=== PATIENT | male | born 1965 | race African-American/Black ===

== ENCOUNTER 2016-03-27 16:05 | Observation (INO) | payer SELFPAY ==
[~2016-03-27] VITALS: Ht 177.8 cm; Wt 120.0 kg
[~2016-03-27 16:05] MED LIST: CARV6.25 PO; CLIN150 PO; CLON.1 PO; COLL30OI3 TOP; GABA600T PO; HYDR100T2 PO; LACT PO; METF-324 PO; PERC5TAB12 PO
[2016-03-27 16:07] VITALS: BP 218/114; PULSE 78; RESP 20; TEMP 98; O2SAT 95
[2016-03-27] MEDS ORDERED: SODIUM CHLORIDE 0.9% FLUSH 5 ML FLUSH IVF PRN (18:00)
--- NOTE | 2016-03-27 18:04 | PD ---
HPI Chief Complaint: General Weakness Time Seen by Provider: 18:04 Travel History International Travel<30 days: No Contact w/Intl Traveler<30days: No Traveled to known affect area: No History of Present Illness HPI 50-year-old man who is diabetic with history of hypertension, currently not being treated due to not having a current provider, presents to emergency department for evaluation of shortness of breath worsening over the last 3 days with associated lower extremity edema. Patient states he has no history of CHF. He days he is visiting from [facility]. He denies any recent illnesses, fever, or chills. He is concerned that this shortness of breath likely secondary to a GI bleed which he states he was hospitalized here for couple years back. He says he is short of breath than like he is now however he has not had any rayshawn red stools. He states that his stools are intermittently blackened. Denies any abdominal pain. No urinary symptoms. No nausea or vomiting. He has no other symptoms at this time PFSH Past Medical History Blood Disorders: No Cancer: No Diabetes: Yes Endocrine: No Genitourinary: No Headaches: Yes Hypertension: Yes Immune Disorder: No Musculoskeletal: No Neurologic: Yes (NEUROPATHY) Psychiatric: No Reproductive: No Respiratory: No Past Surgical History Pacemaker: No Social History Alcohol Use: No Tobacco Use: No Substance Use: No Allergies-Medications (Allergen,Severity, Reaction): Coded Allergies: No Known Allergies (Verified , 03/27/16) Reported Meds & Prescriptions Reported Meds & Active Scripts Active Reported Hydralazine (Hydralazine HCl) 100 Mg Tab 100 Mg PO TID Take with meals Coreg (Carvedilol) 6.25 Mg Tab 6.25 Mg PO BID Gabapentin 300 Mg Cap 400 Mg PO BID Review of Systems Except as stated in HPI: all other systems reviewed are Neg Physical Exam Narrative GENERAL: Well-nourished male patient, in no acute distress SKIN: Warm and dry. HEAD: Atraumatic. Normocephalic. EYES: Pupils equal and round. No scleral icterus. No injection or drainage. ENT: No nasal bleeding or discharge. Mucous membranes pink and moist. NECK: Trachea midline. No JVD. CARDIOVASCULAR: Regular rate and rhythm. No murmur appreciated. RESPIRATORY: No accessory muscle use. Diminished but no definitive adventitious sounds to auscultation. Breath sounds equal bilaterally. GASTROINTESTINAL: Abdomen soft, non-tender, nondistended. Hepatic and splenic margins not palpable. MUSCULOSKELETAL: No obvious deformities. No clubbing. No cyanosis. 2+ lower extremity edema. Pulses are palpable. Cap refill is within normal limits. NEUROLOGICAL: Awake and alert. No obvious cranial nerve deficits. Motor grossly within normal limits. Normal speech. PSYCHIATRIC: Appropriate mood and affect; insight and judgment normal. Data Data Last Documented VS Vital Signs Date Time Temp Pulse Resp B/P Pulse Ox O2 Delivery O2 Flow Rate FiO2 03/27/16 18:09 99 Nasal Cannula 2 03/27/16 18:09 190/93 03/27/16 16:07 98.0 78 20 Orders Electrocardiogram (03/27/16 17:52) B-Type Natriuretic Peptide (03/27/16 17:52) Ckmb (Isoenzyme) Profile (03/27/16 17:52) Complete Blood Count With Diff (03/27/16 17:52) Comprehensive Metabolic Panel (03/27/16 17:52) Magnesium (Mg) (03/27/16 17:52) Prothrombin Time / Inr (Pt) (03/27/16 17:52) Act Partial Throm Time (Ptt) (03/27/16 17:52) Troponin I (03/27/16 17:52) Chest, Single Ap (03/27/16 17:52) Ecg Monitoring (03/27/16 17:52) Bilateral Bp Monitoring (03/27/16 17:52) Iv Access Insert/Monitor (03/27/16 17:52) Oximetry (03/27/16 17:52) Oxygen Administration (03/27/16 17:52) Sodium Chloride 0.9% Flush (Ns Flush) (03/27/16 18:00) Us Leg Venous Doppler Bilat (03/27/16 ) CKMB (03/27/16 18:15) CKMB% (03/27/16 18:15) Furosemide Inj (Lasix Inj) (03/27/16 19:30) Hydralazine Inj (Apresoline Inj) (03/27/16 20:15) Admit Order (Ed Use Only) (03/27/16 20:17) Labs Laboratory Tests Test 03/27/16 18:15 White Blood Count 4.8 TH/MM3 Red Blood Count 3.77 MIL/MM3 Hemoglobin 9.3 GM/DL Hematocrit 30.8 % Mean Corpuscular Volume 81.6 FL Mean Corpuscular Hemoglobin 24.7 PG Mean Corpuscular Hemoglobin 30.2 % Concent Red Cell Distribution Width 20.0 % Platelet Count 304 TH/MM3 Mean Platelet Volume 9.1 FL Neutrophils (%) (Auto) 67.2 % Lymphocytes (%) (Auto) 17.6 % Monocytes (%) (Auto) 13.5 % Eosinophils (%) (Auto) 0.9 % Basophils (%) (Auto) 0.8 % Neutrophils # (Auto) 3.2 TH/MM3 Lymphocytes # (Auto) 0.8 TH/MM3 Monocytes # (Auto) 0.6 TH/MM3 Eosinophils # (Auto) 0.0 TH/MM3 Basophils # (Auto) 0.0 TH/MM3 CBC Comment AUTO DIFF Differential Comment AUTO DIFF CONFIRMED Tear Drop Cells 1+ Ovalocytes 2+ Keratocytes 1+ Prothrombin Time 10.4 SEC Prothromb Time International 0.9 RATIO Ratio Activated Partial 25.3 SEC Thromboplast Time Sodium Level 144 MEQ/L Potassium Level 3.5 MEQ/L Chloride Level 106 MEQ/L Carbon Dioxide Level 29.2 MEQ/L Anion Gap 9 MEQ/L Blood Urea Nitrogen 15 MG/DL Creatinine 1.78 MG/DL Estimat Glomerular Filtration 49 ML/MIN Rate Random Glucose 171 MG/DL Calcium Level 8.6 MG/DL Magnesium Level 2.1 MG/DL Total Bilirubin 0.8 MG/DL Aspartate Amino Transf 16 U/L (AST/SGOT) Alanine Aminotransferase 21 U/L (ALT/SGPT) Alkaline Phosphatase 90 U/L Total Creatine Kinase 103 U/L Creatine Kinase MB 1.2 NG/ML Troponin I 0.02 NG/ML B-Type Natriuretic Peptide 665 PG/ML Total Protein 7.1 GM/DL Albumin 3.3 GM/DL MDM Medical Decision Making Medical Screen Exam Complete: Yes Emergency Medical Condition: Yes Medical Record Reviewed: Yes Differential Diagnosis CHF vs DVT vs electrolyte abnormality versus PE versus ACS Narrative Course Laboratory Tests Test 03/27/16 18:15 White Blood Count 4.8 TH/MM3 Red Blood Count 3.77 MIL/MM3 Hemoglobin 9.3 GM/DL Hematocrit 30.8 % Mean Corpuscular Volume 81.6 FL Mean Corpuscular Hemoglobin 24.7 PG Mean Corpuscular Hemoglobin 30.2 % Concent Red Cell Distribution Width 20.0 % Platelet Count 304 TH/MM3 Mean Platelet Volume 9.1 FL Neutrophils (%) (Auto) 67.2 % Lymphocytes (%) (Auto) 17.6 % Monocytes (%) (Auto) 13.5 % Eosinophils (%) (Auto) 0.9 % Basophils (%) (Auto) 0.8 % Neutrophils # (Auto) 3.2 TH/MM3 Lymphocytes # (Auto) 0.8 TH/MM3 Monocytes # (Auto) 0.6 TH/MM3 Eosinophils # (Auto) 0.0 TH/MM3 Basophils # (Auto) 0.0 TH/MM3 CBC Comment AUTO DIFF Differential Comment AUTO DIFF CONFIRMED Tear Drop Cells 1+ Ovalocytes 2+ Keratocytes 1+ Prothrombin Time 10.4 SEC Prothromb Time International 0.9 RATIO Ratio Activated Partial 25.3 SEC Thromboplast Time Sodium Level 144 MEQ/L Potassium Level 3.5 MEQ/L Chloride Level 106 MEQ/L Carbon Dioxide Level 29.2 MEQ/L Anion Gap 9 MEQ/L Blood Urea Nitrogen 15 MG/DL Creatinine 1.78 MG/DL Estimat Glomerular Filtration 49 ML/MIN Rate Random Glucose 171 MG/DL Calcium Level 8.6 MG/DL Magnesium Level 2.1 MG/DL Total Bilirubin 0.8 MG/DL Aspartate Amino Transf 16 U/L (AST/SGOT) Alanine Aminotransferase 21 U/L (ALT/SGPT) Alkaline Phosphatase 90 U/L Total Creatine Kinase 103 U/L Creatine Kinase MB 1.2 NG/ML Troponin I 0.02 NG/ML B-Type Natriuretic Peptide 665 PG/ML Total Protein 7.1 GM/DL Albumin 3.3 GM/DL 50-year-old male presents to emergency department for evaluation worsening shortness of breath over the last 3 days with associated lower extremity swelling. Patient has also had elevated high blood pressure, higher than usual. Patient appears without distress. He does have lower extremity edema. I discussed the patient with my attending physician who recommends moving forward with bilateral lower extremity ultrasounds. These are negative for DVT. CBC is with anemia with a hemoglobin of 9.3. However this is consistent with remote lab work reviewed in the medical record. Troponin is 0.02. BNP is 665. Chest x-rays without acute cardiopulmonary disease. EKG was reviewed by my attending physician with some T-wave abnormality in the lateral leads. With no history of CHF as the patient states, patient will be admitted for new onset CHF and serial cardiac enzymes for further evaluation of this. I discussed the patient with Dr. Carter. Patient will be admitted observation her service Diagnosis Primary Impression: CHF (congestive heart failure) Qualified Code: I50.9 - Acute congestive heart failure, unspecified congestive heart failure type Additional Impressions: HTN (hypertension) Qualified Code: I10 - Essential hypertension Accelerated hypertension Admitting Information Admitting Physician Requests: Observation Condition: Stable Kat Flowers Mar 27, 2016 18:04
[2016-03-27 18:09] VITALS: BP 190/93
[2016-03-27 18:36] LABS: AUTOMATED NEUTROPHIL # 3.2 TH/MM3 (1.8-7.7); BASOPHIL % 0.8 % (0.0-2.0); EOSINOPHIL % 0.9 % (0.0-4.0); HEMATOCRIT 30.8 % (39.0-51.0); LYMPH % 17.6 % (9.0-44.0); LYMPHOCYTE # 0.8 TH/MM3 (1.0-4.8); MEAN CELL VOLUME 81.6 FL (80.0-100.0); MEAN CORPUSCULAR HEMOGLOBIN 24.7 PG (27.0-34.0); MEAN CORPUSCULAR HGB CONC 30.2 % (32.0-36.0); MONO % 13.5 % (0.0-8.0); NEUT % 67.2 % (16.0-70.0); PLATELET COUNT 304 TH/MM3 (150-450); RED BLOOD COUNT 3.77 MIL/MM3 (4.50-5.90); WHITE BLOOD COUNT 4.8 TH/MM3 (4.0-11.0)
--- NOTE | 2016-03-27 18:39 | RADRPT ---
EXAM DATE/TIME: 03/27/2016 18:17 [facility] COMPARISON: CHEST SINGLE AP, September 18, 2013, 9:08. INDICATIONS : Short of Breath. MEDICAL HISTORY : None. SURGICAL HISTORY : None. ENCOUNTER: Initial ACUITY: 1 week PAIN SCORE: 0/10 LOCATION: Bilateral chest FINDINGS: A single view of the chest demonstrates the lungs to be symmetrically aerated without evidence of mas s, infiltrate or effusion. The cardiomediastinal contours are unremarkable. Osseous structures are intact. CONCLUSION: No acute disease. Lui Jolley MD on March 27, 2016 at 18:37 Board Certified Radiologist. This report was verified electronically.
[2016-03-27 18:42] LABS: APTT (PATIENT) 25.3 SEC (24.3-30.1); INTERNATIONAL NORMALIZED RATIO 0.9 RATIO; PROTHROMBIN TIME - PATIENT 10.4 SEC (9.8-11.6)
[2016-03-27 18:58] LABS: ANION GAP 9 MEQ/L (5-15); AST (GOT) 16 U/L (15-37); BICARBONATE 29.2 MEQ/L (21.0-32.0); BLOOD UREA NITROGEN 15 MG/DL (7-18); CHLORIDE 106 MEQ/L (98-107); GLOMERULAR FILTRATION RATE 49 ML/MIN (>89); MAGNESIUM 2.1 MG/DL (1.5-2.5); POTASSIUM 3.5 MEQ/L (3.5-5.1); SODIUM (NA) 144 MEQ/L (136-145)
[2016-03-27 19:02] LABS: ALKALINE PHOSPHATASE 90 U/L (45-117); ALT (GPT) 21 U/L (12-78); CREATINE KINASE 103 U/L (39-308); TOTAL BILIRUBIN ADULT 0.8 MG/DL (0.2-1.0)
[2016-03-27] MEDS ORDERED: CARV6.25 PO (19:13)
[2016-03-27] MEDS ORDERED: HYDR-3801 PO (19:13)
[2016-03-27] MEDS ORDERED: GABA300C5 PO (19:13)
[2016-03-27 19:14] LABS: CKMB 1.2 NG/ML (0.5-3.6)
[2016-03-27 19:16] LABS: HEMO FLAGS AUTO DIFF
[2016-03-27] MEDS ORDERED: FUROSEMIDE 20 MG/2 ML VIAL IV PUSH ONE (19:30)
--- NOTE | 2016-03-27 19:47 | RADRPT ---
EXAM DATE/TIME: 03/27/2016 18:36 [facility] COMPARISON: No previous studies available for comparison. INDICATIONS : Swelling. MEDICAL HISTORY : Hypertension. Daibetes. Neuropathy. SURGICAL HISTORY : No recorded surgical history. ENCOUNTER: Initial ACUITY: 1 day PAIN SCORE: 0/10 LOCATION: Bilateral leg TECHNIQUE: Venous ultrasound of the left and right leg was performed from the inguinal ligament to the proximal calf. Real-time, color Doppler and spectral tracing, compression and augmentation techniques were us ed. FINDINGS: RIGHT LEG: There is normal compressibility of the deep venous system from the inguinal region to the proximal ca lf. No echogenic clot is seen in the lumen of the common femoral, femoral, popliteal, and posterior tibial veins. There is a normal response of the venous system to proximal and distal augmentation an d respiration. Right lower extremity edema/swelling. LEFT LEG: There is normal compressibility of the deep venous system from the inguinal region to the proximal ca lf. No echogenic clot is seen in the lumen of the common femoral, femoral, popliteal, and posterior tibial veins. There is a normal response of the venous system to proximal and distal augmentation an d respiration. Left lower extremity edema/swelling. CONCLUSION: No DVT in either lower extremity. Bilateral lower extremity edema. Lui Jolley MD on March 27, 2016 at 19:45 Board Certified Radiologist. This report was verified electronically.
[2016-03-27] MEDS ORDERED: hydrALAZINE HCL 20 MG/ML VIAL IV PUSH ONE (20:15)
[2016-03-27] MEDS ORDERED: BISACODYL 10 MG SUPP PR PRN (20:30)
[2016-03-27] MEDS ORDERED: ONDANSETRON HCL 4 MG/2 ML VIAL IVP PRN (20:30)
[2016-03-27] MEDS ORDERED: ACETAMINOPHEN 325 MG TAB PO PRN (20:30)
[2016-03-27] MEDS ORDERED: ACETAMINOPHEN/HYDROcodone 325 MG/5 MG TAB PO PRN (20:30)
[2016-03-27] MEDS ORDERED: SODIUM CHLORIDE 0.9% FLUSH 5 ML FLUSH FLUSH PRN (20:30)
[2016-03-27] MEDS ORDERED: DEXTROSE 50% IN WATER 50 ML VIAL(D50) IV PUSH PRN (20:30)
[2016-03-27] MEDS ORDERED: GLUCAGON 1 MG/ML VIAL OTHER PRN (20:30)
[2016-03-27] MEDS ORDERED: MORPHINE SULFATE 4 MG/ML INJ IV PRN (20:30)
--- NOTE | 2016-03-27 20:39 | HHI.HP ---
[facility] Primary Care Physician Non-Staff Admission Diagnosis new onset CHF; dyspnea; hypertension; diabetes Diagnoses: (1) Chest pain Diagnosis: Principal (2) CHF (congestive heart failure) Diagnosis: Principal (3) HTN (hypertension) Diagnosis: Principal (4) DM (diabetes mellitus) Diagnosis: Principal Travel History International Travel<30 Days: No Contact w/Intl Traveler <30 Da: No Traveled to Known Affected Are: No History of Present Illness This is a 50 year old male with a PMH of HTN, DM and CHF (Echo 09/19/13 w/ EF 45- 50%) who came to the ER w/ complaints of SOB, chest pain and worsening lower extremity edema x3-4 days. States he is visiting from [place] and ran out of his meds. Denies h/o CHF, however previous records positive for CHF. On arrival, BP 218/114, HR 78, O2 sat 95% on RA, Afebrile. S/p Hydralazine 10mg IV and Lasix 20mg IV in ER, repeat BP 178/86, HR 80. CBC at baseline. Creatinine 1.78 , previously 1.52 on 03/15/14. BNP 665. Troponin 0.02. CXR with no acute findings. Review of Systems Other ROS: 14 point review of systems otherwise negative. Past Family Social History Past Medical History PMH: HTN, DM and CHF (Echo 09/19/13 w/ EF 45-50%) Past Surgical History PAST SURGICAL HISTORY: None Allergies: Coded Allergies: No Known Allergies (Verified , 03/27/16) Family History PAST FAMILY HISTORY: Reviewed, positive for DM. Social History PAST SOCIAL HISTORY: Negative for alcohol, tobacco or drugs. Physical Exam Vital Signs Vital Signs Date Time Temp Pulse Resp B/P Pulse Ox O2 Delivery O2 Flow Rate FiO2 03/27/16 18:09 99 Nasal Cannula 2 03/27/16 18:09 190/93 03/27/16 18:09 Nasal Cannula 2 03/27/16 18:09 190/93 03/27/16 16:07 98.0 78 20 218/114 95 Room Air Physical Exam PE: GENERAL: Middle-aged male in no acute distress. HEENT: PERRLA, EOMI. No scleral icterus or conjunctival pallor. No lid lag or facial droop. CARDIOVASCULAR: Regular rate and rhythm. No obvious murmurs to auscultation. No chest tenderness to palpation. RESPIRATORY: No obvious rhonchi or wheezing. Clear to auscultation. Breath sounds equal bilaterally. GASTROINTESTINAL: Abdomen soft, non-tender, nondistended. BS normal. MUSCULOSKELETAL: Extremities without clubbing, cyanosis, or edema. No obvious deformities. NEUROLOGICAL: Awake, alert and oriented x4. No focal neurologic deficits. Moving both upper and lower extremities spontaneously. Laboratory Laboratory Tests Test 03/27/16 18:15 White Blood Count 4.8 Red Blood Count 3.77 Hemoglobin 9.3 Hematocrit 30.8 Mean Corpuscular Volume 81.6 Mean Corpuscular Hemoglobin 24.7 Mean Corpuscular Hemoglobin 30.2 Concent Red Cell Distribution Width 20.0 Platelet Count 304 Mean Platelet Volume 9.1 Neutrophils (%) (Auto) 67.2 Lymphocytes (%) (Auto) 17.6 Monocytes (%) (Auto) 13.5 Eosinophils (%) (Auto) 0.9 Basophils (%) (Auto) 0.8 Neutrophils # (Auto) 3.2 Lymphocytes # (Auto) 0.8 Monocytes # (Auto) 0.6 Eosinophils # (Auto) 0.0 Basophils # (Auto) 0.0 CBC Comment AUTO DIFF Prothrombin Time 10.4 Prothromb Time International 0.9 Ratio Activated Partial 25.3 Thromboplast Time Sodium Level 144 Potassium Level 3.5 Chloride Level 106 Carbon Dioxide Level 29.2 Anion Gap 9 Blood Urea Nitrogen 15 Creatinine 1.78 Estimat Glomerular Filtration 49 Rate Random Glucose 171 Calcium Level 8.6 Magnesium Level 2.1 Total Bilirubin 0.8 Aspartate Amino Transf 16 (AST/SGOT) Alanine Aminotransferase 21 (ALT/SGPT) Alkaline Phosphatase 90 Total Creatine Kinase 103 Creatine Kinase MB 1.2 Troponin I 0.02 B-Type Natriuretic Peptide 665 Total Protein 7.1 Albumin 3.3 Result Diagram: 03/27/16181403/27/161814 Assessment and Plan Problem List: (1) Chest pain ICD Code: R07.9 Status: Acute (2) CHF (congestive heart failure) ICD Code: I50.9 Status: Acute (3) DM (diabetes mellitus) ICD Code: E11.9 Status: Acute (4) HTN (hypertension) ICD Code: I10 Status: Acute Assessment and Plan A/P: 1. Chest Pain: r/o ACS. Initial trop negative, EKG w/ no acute findings. CXR negative, images reviewed by me. Check serial cardiac enzymes, start ASA, Statin, resume home B-nishant. Cardiology consult as needed. Check Lipid Profile, TSH, Hgb A1c. 2. CHF: Acute on Chronic. Systolic. Echo 09/20/15 w/ EF 45-50%. BNP 665. S/ p Lasix in ER. Will continue w/ diuresis as needed. Repeat BNP. 3. DM: Sliding scale w/ Accu-Cheks. Check Hgb A1c. 4. HTN: Uncontrolled. Secondary to noncompliance. BP 218/114, HR 78. S/p Hydralazine 10mg IV in ER, repeat BP 178/86, HR 80. Resume home medications, monitor BP. 5. DVT Prophylaxis: SCD/Teds. 6. Social work for d/c planning as needed. 7. Case discussed w/ ER physician at length. Esha Carter MD Mar 27, 2016 20:39
[2016-03-27 20:49] VITALS: BP 193/108; PULSE 77; RESP 16; O2SAT 100
[2016-03-27] MEDS: CARVEDILOL 6.25 MG TAB PO SCH (20:59)
[2016-03-27] MEDS: GABAPENTIN 400 MG CAP PO SCH (20:59)
[2016-03-27] MEDS: INSULIN ASPART SUPPLEMENTAL SCALE SQ SCH (21:00)
[2016-03-27 21:46] LABS: KERATOCYTES 1+ (NORMAL); OVALOCYTES 2+ (NORMAL); TEARDROP RBCS 1+ (NORMAL)
[2016-03-27 21:47] LABS: SCAN/DIFF AUTO DIFF CONFIRMED
[2016-03-27 21:50] VITALS: BP 178/86; PULSE 80; RESP 18; O2SAT 97
[2016-03-27] MEDS: SODIUM CHLORIDE 0.9% FLUSH 5 ML FLUSH FLUSH SCH (21:55)
[2016-03-28] VITALS (11 sets, daily range): BP systolic 131–201; BP diastolic 67–114; PULSE 72–82; RESP 16–18; TEMP 96–98.7; O2SAT 96–98
[2016-03-28] MEDS ORDERED: cloNIDine HCL 0.1 MG TAB PO ONE (02:30)
[2016-03-28 06:26] LABS: EOSINOPHIL % 0.9 % (0.0-4.0); HEMATOCRIT 29.1 % (39.0-51.0); LYMPH % 16.7 % (9.0-44.0); LYMPHOCYTE # 0.7 TH/MM3 (1.0-4.8); MEAN CELL VOLUME 79.8 FL (80.0-100.0); MEAN CORPUSCULAR HEMOGLOBIN 24.3 PG (27.0-34.0); MEAN CORPUSCULAR HGB CONC 30.5 % (32.0-36.0); MONO % 11.8 % (0.0-8.0); NEUT % 69.6 % (16.0-70.0); PLATELET COUNT 304 TH/MM3 (150-450); RED BLOOD COUNT 3.65 MIL/MM3 (4.50-5.90); WHITE BLOOD COUNT 4.3 TH/MM3 (4.0-11.0)
[2016-03-28 06:40] LABS: HEMO FLAGS AUTO DIFF
[2016-03-28] MEDS: INSULIN ASPART SUPPLEMENTAL SCALE SQ SCH ×4 (07:00→20:26)
[2016-03-28 07:01] LABS: ANION GAP 9 MEQ/L (5-15); AST (GOT) 13 U/L (15-37); BICARBONATE 27.8 MEQ/L (21.0-32.0); BLOOD UREA NITROGEN 13 MG/DL (7-18); CHLORIDE 104 MEQ/L (98-107); GLOMERULAR FILTRATION RATE 60 ML/MIN (>89); POTASSIUM 3.2 MEQ/L (3.5-5.1); SODIUM (NA) 141 MEQ/L (136-145)
[2016-03-28 07:09] LABS: ALKALINE PHOSPHATASE 80 U/L (45-117); ALT (GPT) 17 U/L (12-78); HDL CHOLESTEROL 44.1 MG/DL (40.0-60.0); LDL CHOLESTEROL 93 MG/DL (0-99); TOTAL BILIRUBIN ADULT 0.9 MG/DL (0.2-1.0)
[2016-03-28] MEDS ORDERED: POTASSIUM CHLORIDE 20 MEQ CONTROLLED RELEASE TAB PO ONE (08:00)
[2016-03-28] MEDS: ASPIRIN EC 81 MG TABEC PO SCH (08:05)
[2016-03-28] MEDS: hydrALAZINE HCL 100 MG TAB PO SCH ×3 (08:05→17:15)
[2016-03-28] MEDS: PRAVASTATIN SOD 40 MG TAB PO SCH (08:05)
[2016-03-28] MEDS: GABAPENTIN 400 MG CAP PO SCH ×2 (08:05→20:21)
[2016-03-28] MEDS: SODIUM CHLORIDE 0.9% FLUSH 5 ML FLUSH FLUSH SCH ×2 (08:06→20:21)
[2016-03-28] MEDS: FUROSEMIDE 40 MG TAB PO SCH (08:06)
[2016-03-28] MEDS: CARVEDILOL 6.25 MG TAB PO SCH (08:06)
[2016-03-28] MEDS ORDERED: CARVEDILOL 6.25 MG TAB PO ONE (09:45)
[2016-03-28 09:57] LABS: OVALOCYTES 1+ (NORMAL); POLYCHROMASIA 2.6 % (0.0-1.9); SCAN/DIFF AUTO DIFF CONFIRMED; TARGET CELLS 1+ (NORMAL); TEARDROP RBCS 1+ (NORMAL)
--- NOTE | 2016-03-28 10:32 | HHI.PR ---
Subjective Remarks Follow up for shortness of breath, fatigue, lower extremity edema. The patient reports feeling better today, however still with elevated BP. Denies any current shortness of breath. He denies ever having chest pains. He reports continued lower extremity edema. He ran out of medications 1 month ago, states he hasn't been able to afford them. He lives in [place], [place], visiting family here in the [facility] for the holidays. Objective Vitals Vital Signs Date Time Temp Pulse Resp B/P Pulse Ox O2 Delivery O2 Flow Rate FiO2 03/28/16 09:45 74 167/81 03/28/16 07:45 97.9 75 18 201/114 96 03/28/16 04:33 97.9 74 18 177/94 97 03/28/16 02:07 72 198/103 03/28/16 00:15 72 03/28/16 00:12 98.7 74 16 180/100 98 03/27/16 21:50 80 18 178/86 97 Room Air 03/27/16 20:49 77 16 193/108 100 Room Air 03/27/16 18:09 99 Nasal Cannula 2 03/27/16 18:09 190/93 03/27/16 18:09 Nasal Cannula 2 03/27/16 18:09 190/93 03/27/16 16:07 98.0 78 20 218/114 95 Room Air I/O 03/27/16 03/27/16 03/27/16 03/28/16 03/28/16 03/28/16 07:00 15:00 23:00 07:00 15:00 23:00 Output Total 800 ml Balance -800 ml Output Urine Total 800 ml # Voids 1 Result Diagram: 03/28/16 0602 03/28/16 0602 Imaging Last Impressions Chest X-Ray 03/27/16 1752 Signed Impressions: Service Date/Time: Sunday, March 27, 2016 18:17 - CONCLUSION: No acute disease. Lui Jolley MD Lower Extremity Ultrasound 03/27/16 0000 Signed Impressions: Service Date/Time: Sunday, March 27, 2016 18:36 - CONCLUSION: No DVT in either lower extremity. Bilateral lower extremity edema. Lui Jolley MD Objective Remarks GENERAL: Well-nourished, well-developed obese AA male patient in NAD. SKIN: Warm and dry. No rash. HEAD: Normocephalic. Atraumatic. EYES: Pupils equal and round. No scleral icterus. No injection or drainage. ENT: No nasal bleeding or discharge. Mucous membranes pink and moist. NECK: Supple. Trachea midline. CARDIOVASCULAR: Regular rate and rhythm. S1, S2 noted. No murmur appreciated. RESPIRATORY: No accessory muscle use. Clear to auscultation. Breath sounds equal bilaterally. GASTROINTESTINAL: Abdomen soft, non-tender, nondistended. Normoactive bowel sounds x4. MUSCULOSKELETAL: No obvious deformities. Chronic b/l nonpitting edema. NEUROLOGICAL: Awake and alert. No obvious cranial nerve deficits. Motor grossly within normal limits. Normal speech. PSYCHIATRIC: Appropriate mood and affect; insight and judgment normal. Medications and IVs Current Medications Medications (Trade) Dose Ordered Sig/[place] Route Start Time Stop Time Status Last Admin (NS Flush) 2 ml UNSCH PRN FLUSH 03/27/16 20:30 (NS Flush) 2 ml BID FLUSH 03/27/16 21:00 03/28/16 08:06 (Zofran Inj) 4 mg Q6H PRN IVP 03/27/16 20:30 (Dulcolax Supp) 10 mg DAILY PRN AK 03/27/16 20:30 (Tylenol) 650 mg Q6H PRN PO 03/27/16 20:30 (Hardtner 5-325 Mg) 1 tab Q4H PRN PO 03/27/16 20:30 (Morphine Inj) 2 mg Q3H PRN IV 03/27/16 20:30 (Ecotrin Ec) 81 mg DAILY PO 03/28/16 09:00 03/28/16 08:05 (Pravachol) 40 mg DAILY PO 03/28/16 09:00 03/28/16 08:05 (Neurontin) 400 mg BID PO 03/27/16 21:00 03/28/16 08:05 (Apresoline) 100 mg TID PO 03/28/16 09:00 03/28/16 08:05 (D50w (Vial) Inj) 25 ml UNSCH PRN IV PUSH 03/27/16 20:30 (Glucagon Inj) 1 mg UNSCH PRN OTHER 03/27/16 20:30 (Lasix) 40 mg DAILY PO 03/28/16 09:00 03/28/16 08:06 (Ismo) 20 mg BID@07,14 PO 03/28/16 14:00 (Coreg) 12.5 mg BID PO 03/28/16 21:00 Urinary Catheter: No Vascular Central Line Catheter: No A/P Problem List: (1) Chest pain ICD Code: R07.9 Status: Acute (2) CHF (congestive heart failure) ICD Code: I50.9 Status: Acute (3) DM (diabetes mellitus) ICD Code: E11.9 Status: Acute (4) HTN (hypertension) ICD Code: I10 Status: Acute Assessment and Plan 50 year old male with a PMH of HTN, DM and CHF (Echo 09/19/13 w/ EF 45-50%) who came to the ER w/ complaints of SOB, chest pain and worsening lower extremity edema x3-4 days. States he is visiting from [place] and ran out of his meds. Denies h/o CHF, however previous records positive for CHF. SOB/Chest Pain: r/o ACS. CXR negative, images reviewed by me. ACS ruled out with negative serial cardiac enzymes and EKG without acute ST changes. Start ASA, Statin, resume home B-nishant. Lipid Profile wnl. TSH wnl. Hgb A1c pending. The patient today denies ever having any chest pains, only shortness of breath. Acute on Chronic Systolic CHF: Echo August 2013 w/ EF 45-50%. BNP 665. S/p IV Lasix 20mg in ER. Continue with Lasix 40mg daily. Repeat BNP still elevated. Repeat echocardiogram. Hypertensive Urgency secondary to Accelerated HTN: BP 218/114 upon arrival. Secondary to noncompliance. S/p Hydralazine 10mg IV in ER, repeat BP 178/86, HR 80. Resume home medications including coreg, hydralazine. Added isosorbide. Increased Coreg from 6.25mg bid to 12.5mg bid. DM: Sliding scale w/ Accu-Cheks. Check Hgb A1c. Diabetic diet. Microcytic Anemia: Hgb 9.3, 8.9. No signs of acute blood loss. Likely secondary to CKD. Check stool hemoccult. Check iron studies/ferritin in the am. Outpatient f/up. CKD, stage III: likely medical renal disease with HTN/DM. Cr 1.78 upon arrival, now 1.49, consistent with previous labs. Avoid further nephrotoxins. DVT Prophylaxis: SCD/Teds. Written by Xiomara Simpson, acting as scribe for Dr. Arroyo on 03/28/16 at 09: 30. Attending Statement The documentation accurately reflects the work performed [id number] by me, Dr. Arroyo on 03/28/16 at 09:30 Problem Qualifiers (1) CHF (congestive heart failure): Qualified Code: I50.9 - Acute congestive heart failure, unspecified congestive heart failure type (2) HTN (hypertension): Qualified Code: I10 - Essential hypertension Xiomara Simpson PA-C Mar 28, 2016 10:31 Tony Arroyo MD Mar 28, 2016 22:28
[2016-03-28 11:53] LABS: TRANSFERRIN IRON PROFILE 264 MG/DL (200-360)
--- NOTE | 2016-03-28 13:38 | EKG ---
Date Performed: 03/28/2016 Time Performed: 06:06:22 PTAGE: 50 years EKG: Sinus rhythm WITH FREQUENT VENTRICULAR PREMATURE COMPLEXES VOLTAGE CRITERIA FOR LVH POSSIBLE SEPTAL MYOCARDIAL IN FARCTION Since previous tracing, no significant change noted ABNORMAL ECG PREVIOUS TRACING : 03/27/2016 23.41.05 DOCTOR: Natalie Guillaume Interpretating Date/Time 03/28/2016 13:37:28
--- NOTE | 2016-03-28 14:38 | EKG ---
Date Performed: 03/27/2016 Time Performed: 18:02:57 PTAGE: 50 years EKG: Sinus rhythm MODERATE VOLTAGE CRITERIA FOR LVH, CONSIDER NORMAL VARIANT POSSIBLE SEPTAL MYOCARDIAL INFARCTION MOD ERATE T-WAVE ABNORMALITY, CONSIDER LATERAL ISCHEMIA Compared to previous tracing, the lateral T wave changes are new. This may be, simply, secondary to left ventricular hypertrophy. Clinical correlati on is advised. ABNORMAL ECG PREVIOUS TRACING : 03/21/2014 22.17 DOCTOR: Natalie Guillaume Interpretating Date/Time 03/28/2016 14:37:52
--- NOTE | 2016-03-28 14:40 | EKG ---
Date Performed: 03/27/2016 Time Performed: 23:41:05 PTAGE: 50 years EKG: Sinus rhythm WITH OCCASIONAL VENTRICULAR PREMATURE COMPLEXES MODERATE VOLTAGE CRITERIA FOR LVH, CONSIDER NORMAL V ARIANT POSSIBLE SEPTAL MYOCARDIAL INFARCTION Compared to previous tracing, there has been some slight improvement in the lateral T wave changes associated with possible left ventricular hypertrophy. Th e PVCs are new. ABNORMAL ECG PREVIOUS TRACING : 03/27/2016 18.02.57 DOCTOR: Natalie Guillaume Interpretating Date/Time 03/28/2016 14:38:56
[2016-03-28] MEDS: ISOSORBIDE MONONITRATE 20 MG TAB PO SCH (15:19)
--- NOTE | 2016-03-28 15:25 | EC ---
Study Study Date:03/28/2016 STUDY CONCLUSIONS SUMMARY - Left ventricle: The cavity size was normal. Wall thickness was increased in a pattern of mild LVH. Systolic function was normal. The estimated ejection fraction was in the range of 55% to 60%. Wall motion was normal; there were no regional wall motion abnormalities. Doppler parameters are consistent with abnormal left ventricular relaxation (grade 1 diastolic dysfunction). - Mitral valve: Mild regurgitation. - Tricuspid valve: Mild regurgitation. - Pulmonary arteries: Systolic pressure was mildly to moderately increased. PA peak pressure: 50mm Hg (S). If LV function is below 40, please consider prescribing an ACEI or ARB or document rationale for non-use. PROCEDURE DATA STUDY STATUS: Elective. Procedure: Transthoracic echocardiography. Image quality was good. Scanning was performed from the parasternal, apical, and subcostal acoustic windows. Study completion: The patient tolerated the procedure well. Transthoracic echocardiography. M-mode, complete 2D, complete spectral Doppler, and color Doppler. Patient status: Inpatient. CARDIAC ANATOMY LEFT VENTRICLE: The cavity size was normal. Wall thickness was increased in a pattern of mild LVH. Systolic function was normal. The estimated ejection fraction was in the range of 55% to 60%. Wall motion was normal; there were no regional wall motion abnormalities. Doppler parameters are consistent with abnormal left ventricular relaxation (grade 1 diastolic dysfunction). AORTIC VALVE: Trileaflet; normal thickness leaflets. Doppler: Transvalvular velocity was within the normal range. There was no stenosis. No regurgitation. AORTA: Aortic root: The aortic root was normal in size. MITRAL VALVE: Structurally normal valve. Doppler: Transvalvular velocity was within the normal range. There was no evidence for stenosis. Mild regurgitation. Peak gradient: 2mm Hg (D). LEFT ATRIUM: The atrium was normal in size. RIGHT VENTRICLE: The cavity size was normal. Wall thickness was normal. PULMONIC VALVE: Doppler: Transvalvular velocity was within the normal range. There was no evidence for stenosis. No regurgitation. TRICUSPID VALVE: Structurally normal valve. Doppler: Transvalvular velocity was within the normal range. Mild regurgitation. PULMONARY ARTERY: Systolic pressure was mildly to moderately increased. RIGHT ATRIUM: The atrium was normal in size. PERICARDIUM: There was no pericardial effusion. SYSTEMIC VEINS: Inferior vena cava: The vessel was normal in size. BASIC MEASUREMENTS ADULT Normal Left ventricle LV internal dimension, ED, chordal level, *56 mm 43-52 PLAX LV internal dimension, ES, chordal level, *43.1 mm 23-38 PLAX Fractional shortening, chordal level, PLAX *23 % >29 LV posterior wall thickness, ED 16.9 mm IVS/LVPW ratio, ED *1.42 <1.3 Ventricular septum Septal thickness, ED 24 mm Aortic valve Leaflet separation 24 mm 15-26 Right ventricle RV internal dimension, ED, PLAX 25.7 mm 19-38 BASIC MEASUREMENTS ADULT Normal Aortic valve Leaflet separation 24 mm 15-26 Aorta Root diameter, ED *38 mm 20-37 Left atrium Anterior-posterior dimension, ES *52 mm 19-40 LA/aortic root ratio 1.37 DOPPLER MEASUREMENTS ADULT Normal Main pulmonary artery Pressure, S *50 mm Hg =30 Mitral valve Peak E-wave velocity 73.1 cm/s Peak A-wave velocity 62.2 cm/s Peak gradient, D 2 mm Hg Peak E/A ratio 1.2 Tricuspid valve Regurgitant peak velocity 316 cm/s Peak RV-RA gradient, S 40 mm Hg Maximal regurgitant velocity 316 cm/s Systemic veins Estimated CVP 10 mm Hg Right ventricle RV pressure, S *50 mm Hg <30 LEGEND: Mean values are shown as u=mean value. Asterisk (*) chaudhry values outside specified normal range. Prepared and signed by Domingo Green [id number]
[2016-03-28] MEDS ORDERED: cloNIDine HCL 0.1 MG TAB PO PRN (16:45)
[2016-03-28] MEDS ORDERED: NIFEdipine 30 MG SUSTAINED RELEASE TAB PO ONE (17:15)
[2016-03-28] MEDS: CARVEDILOL 12.5 MG TAB PO SCH (20:21)
[2016-03-28] MEDS ORDERED: POTASSIUM CHLORIDE 10 MEQ CONTROLLED RELEASE TAB PO ONE (22:30)
[2016-03-29 00:24] VITALS: BP 150/89; PULSE 54; RESP 16; TEMP 96.4; O2SAT 95
[2016-03-29 04:43] VITALS: BP 175/85; PULSE 79; RESP 18; TEMP 97.7; O2SAT 97
[2016-03-29 05:12] LABS: AUTOMATED NEUTROPHIL # 4.3 TH/MM3 (1.8-7.7); BASOPHIL % 0.8 % (0.0-2.0); EOSINOPHIL # 0.1 TH/MM3 (0-0.4); HEMATOCRIT 27.1 % (39.0-51.0); LYMPH % 16.2 % (9.0-44.0); MEAN CELL VOLUME 80.5 FL (80.0-100.0); MEAN CORPUSCULAR HEMOGLOBIN 24.9 PG (27.0-34.0); MEAN CORPUSCULAR HGB CONC 30.9 % (32.0-36.0); MONO % 11.1 % (0.0-8.0); NEUT % 70.9 % (16.0-70.0); PLATELET COUNT 294 TH/MM3 (150-450); RED BLOOD COUNT 3.37 MIL/MM3 (4.50-5.90); RED CELL DISTRIBUTION WIDTH 19.7 % (11.6-17.2)
[2016-03-29 05:33] LABS: HEMO FLAGS AUTO DIFF
[2016-03-29 05:38] LABS: POTASSIUM 3.7 MEQ/L (3.5-5.1)
[2016-03-29] MEDS: INSULIN ASPART SUPPLEMENTAL SCALE SQ SCH (06:29)
[2016-03-29] MEDS: ISOSORBIDE MONONITRATE 20 MG TAB PO SCH (06:29)
[2016-03-29 07:50] VITALS: BP 135/72; PULSE 71; RESP 18; TEMP 97.9; O2SAT 99
[2016-03-29 08:06] VITALS: PULSE 65
[2016-03-29] MEDS: ASPIRIN EC 81 MG TABEC PO SCH (08:39)
[2016-03-29] MEDS: hydrALAZINE HCL 100 MG TAB PO SCH (08:39)
[2016-03-29] MEDS: GABAPENTIN 400 MG CAP PO SCH (08:39)
[2016-03-29] MEDS: PRAVASTATIN SOD 40 MG TAB PO SCH (08:40)
[2016-03-29] MEDS: FUROSEMIDE 40 MG TAB PO SCH (08:40)
[2016-03-29] MEDS: SODIUM CHLORIDE 0.9% FLUSH 5 ML FLUSH FLUSH SCH (08:40)
[2016-03-29] MEDS: CARVEDILOL 12.5 MG TAB PO SCH (08:40)
[2016-03-29] MEDS ORDERED: amLODIPine BESYLATE 5 MG TAB PO SCH (09:00)
--- NOTE | 2016-03-29 09:08 | HHI.PR ---
Subjective Remarks Follow up for shortness of breath, fatigue, lower extremity edema with uncontrolled HTN and CHF exacerbation. The patient reports feeling back to normal. Denies any shortness of breath. He has been ambulating without difficulty. O2 sat 99% on room air. He reports his lower extremity edema has also improved. He continues to deny ever having any chest pains. He plans to return to [place], [place] soon and he states he does have a PCP up there. He has no other medical complaints at this time. He feels ready for discharge. Objective Vitals Vital Signs Date Time Temp Pulse Resp B/P Pulse Ox O2 Delivery O2 Flow Rate FiO2 03/29/16 07:50 97.9 71 18 135/72 99 03/29/16 04:43 97.7 79 18 175/85 97 03/29/16 00:24 96.4 54 16 150/89 95 03/28/16 20:01 72 03/28/16 19:09 96.0 74 18 131/67 98 03/28/16 17:26 82 03/28/16 15:18 98.2 72 16 172/85 98 03/28/16 11:32 97.8 82 16 183/84 98 03/28/16 09:45 74 167/81 Result Diagram: 03/29/16 0416 03/29/16 0416 Imaging Last Impressions Chest X-Ray 03/27/16 1752 Signed Impressions: Service Date/Time: Sunday, March 27, 2016 18:17 - CONCLUSION: No acute disease. Lui Jolley MD Lower Extremity Ultrasound 03/27/16 0000 Signed Impressions: Service Date/Time: Sunday, March 27, 2016 18:36 - CONCLUSION: No DVT in either lower extremity. Bilateral lower extremity edema. Lui Jolley MD Objective Remarks GENERAL: Well-nourished, well-developed obese AA male patient in [facility]. SKIN: Warm and dry. No rash. HEAD: Normocephalic. Atraumatic. NECK: Supple. Trachea midline. CARDIOVASCULAR: Regular rate and rhythm. S1, S2 noted. No murmur appreciated. RESPIRATORY: No accessory muscle use. Clear to auscultation. Breath sounds equal bilaterally. GASTROINTESTINAL: Abdomen soft, non-tender, nondistended. Normoactive bowel sounds x4. MUSCULOSKELETAL: No obvious deformities. Chronic b/l nonpitting edema, minimal to trace edema today, much improved. NEUROLOGICAL: Awake and alert. No obvious cranial nerve deficits. Motor grossly within normal limits. Normal speech. PSYCHIATRIC: Appropriate mood and affect; insight and judgment normal. Medications and IVs Current Medications Medications (Trade) Dose Ordered Sig/[place] Route Start Time Stop Time Status Last Admin (NS Flush) 2 ml UNSCH PRN FLUSH 03/27/16 20:30 (NS Flush) 2 ml BID FLUSH 03/27/16 21:00 03/29/16 08:40 (Zofran Inj) 4 mg Q6H PRN IVP 03/27/16 20:30 (Dulcolax Supp) 10 mg DAILY PRN NE 03/27/16 20:30 (Tylenol) 650 mg Q6H PRN PO 03/27/16 20:30 ([place] 5-325 Mg) 1 tab Q4H PRN PO 03/27/16 20:30 (Morphine Inj) 2 mg Q3H PRN IV 03/27/16 20:30 (Ecotrin Ec) 81 mg DAILY PO 03/28/16 09:00 03/29/16 08:39 (Pravachol) 40 mg DAILY PO 03/28/16 09:00 03/29/16 08:40 (Neurontin) 400 mg BID PO 03/27/16 21:00 03/29/16 08:39 (Apresoline) 100 mg TID PO 03/28/16 09:00 03/29/16 08:39 (D50w (Vial) Inj) 25 ml UNSCH PRN IV PUSH 03/27/16 20:30 (Glucagon Inj) 1 mg UNSCH PRN OTHER 03/27/16 20:30 (Lasix) 40 mg DAILY PO 03/28/16 09:00 03/29/16 08:40 (Ismo) 20 mg BID@07,14 PO 03/28/16 14:00 03/29/16 06:29 (Coreg) 12.5 mg BID PO 03/28/16 21:00 03/29/16 08:40 (Catapres) 0.1 mg Q6H PRN PO 03/28/16 16:45 03/29/16 06:32 (Norvasc) 5 mg DAILY PO 03/29/16 09:00 03/29/16 08:48 Urinary Catheter: No Vascular Central Line Catheter: No A/P Problem List: (1) Chest pain ICD Code: R07.9 Status: Acute (2) CHF (congestive heart failure) ICD Code: I50.9 Status: Acute (3) DM (diabetes mellitus) ICD Code: E11.9 Status: Acute (4) HTN (hypertension) ICD Code: I10 Status: Acute Assessment and Plan 50 year old male with a PMH of HTN, DM and CHF (Echo 09/19/13 w/ EF 45-50%) who came to the ER w/ complaints of SOB, chest pain and worsening lower extremity edema x3-4 days. States he is visiting from [place] and ran out of his meds. Denies h/o CHF, however previous records positive for CHF. SOB/Chest Pain: r/o ACS. CXR negative, images reviewed by me. ACS ruled out with negative serial cardiac enzymes and EKG without acute ST changes. Start ASA, Statin, resume home B-nishant. Lipid Profile wnl. TSH wnl. Hgb A1c pending. The patient today denies ever having any chest pains, only shortness of breath. SOB resolved. Acute on Chronic Systolic CHF: Echo August 2013 w/ EF 45-50%. BNP 665. S/p IV Lasix 20mg in ER. Continue with Lasix 40mg daily. Repeat BNP still elevated. Repeat echocardiogram showed EF 55-60% with grade 1 diastolic dysfunction, mild LVH. Patient responded to diuresis well, SOB/edema much improved. Unable to add TIFFANY or ARB secondary to CKD. Continue BB, aspirin, statin. Decrease lasix to 20mg daily. Hypertensive Urgency secondary to Accelerated HTN: BP 218/114 upon arrival. Secondary to noncompliance. S/p Hydralazine 10mg IV in ER, repeat BP 178/86, HR 80. Resume home medications including coreg, hydralazine. Added isosorbide. Increased Coreg from 6.25mg bid to 12.5mg bid. Added Norvasc 5mg daily. On lasix as above. BP improved today. DM: Sliding scale w/ Accu-Cheks. Check Hgb A1c. Diabetic diet. Unable to start metformin with CKD. Start on glipizide and f/up with PCP as outpatient. Microcytic Anemia: Hgb 9.3, 8.9. No signs of acute blood loss. Check stool hemoccult however no BM yet. Iron studies consistent with iron deficiency, and ferritin low. Start on ferrous sulfate. He has hx of AVMs cauterized on EGD in 2013, colonoscopy was unremarkable at that time. No signs of active bleeding. Needs outpatient f/up with Gastroenterology. CKD, stage III: likely medical renal disease with HTN/DM. Cr 1.78 upon arrival, now 1.49, consistent with previous labs. Avoid further nephrotoxins. DVT Prophylaxis: SCD/Teds. Discharge Planning Discharge patient to home Condition on discharge: Improved Heart Healthy/Diabetic Diet as tolerated Ad Raegan activity Rx written: [id number] daily, Norvasc 5mg daily, Coreg 12.5mg po bid, Isosorbide mononitrate 20mg bid, Hydralazine 100mg tid, aspirin 81mg daily, Glipizide 5mg po bidac, Protonix, ferrous sulfate Follow-up with primary care physician within 1 week Follow up with gastroenterology Attending Statement The exam, history, and the medical decision-making described in the above note were completed with the assistance of the mid-level provider. I reviewed and agree with the findings presented. I attest that I had a [id number] encounter with the patient on the same day, and personally performed and documented my assessment and findings in the medical record.patient seen this morning prior to discharge. Says he feels well. Denies any chest pain or shortness of breath. Promises to be compliant with medications. Followup primary care doctor. Problem Qualifiers (1) CHF (congestive heart failure): Qualified Code: I50.9 - Acute congestive heart failure, unspecified congestive heart failure type (2) HTN (hypertension): Qualified Code: I10 - Essential hypertension Xiomara Simpson PA-C Mar 29, 2016 09:08 Tony Arroyo MD Mar 29, 2016 22:58
[2016-03-29] MEDS ORDERED: ASPI81TA11 PO (09:12)
[2016-03-29] MEDS ORDERED: HYDR-3801 PO (09:12)
[2016-03-29] MEDS ORDERED: CARV12.5 PO (09:12)
[2016-03-29] MEDS ORDERED: ISOS20TA PO (09:12)
[2016-03-29] MEDS ORDERED: FURO20TA PO (09:12)
[2016-03-29] MEDS ORDERED: PRAV40TA PO (09:12)
[2016-03-29] MEDS ORDERED: AMLO5 PO (09:12)
--- NOTE | 2016-03-29 09:13 | HHI.DCPOC ---
Discharge Care Plan Diagnosis: (1) CHF (congestive heart failure) (2) HTN (hypertension) (3) DM (diabetes mellitus) (4) CKD (chronic kidney disease), stage III Goals to Promote Your Health * To prevent worsening of your condition and complications * To maintain your health at the optimal level Directions to Meet Your Goals Take your medications as prescribed Follow your dietary instruction Follow activity as directed Keep your appointments as scheduled Take your immunizations and boosters as scheduled If your symptoms worsen call your PCP, if no PCP go to Urgent Care Center or Emergency Room Smoking is Dangerous to Your Health. Avoid second hand smoke Call the 24-hour hour crisis hotline for domestic abuse at Xiomara Simpson PA-C Mar 29, 2016 09:13
[2016-03-29] MEDS ORDERED: GABA300C5 PO (09:30)
[2016-03-29] MEDS ORDERED: GLIP5TAB8 PO (09:31)
[2016-03-29] MEDS ORDERED: PROT40TA PO (09:36)
[2016-03-29] MEDS ORDERED: FERR325T PO (09:36)
[2016-03-29 11:27] LABS: ACANTHOCYTES OCC (NORMAL); OVALOCYTES 1+ (NORMAL); SCAN/DIFF AUTO DIFF CONFIRMED
[2016-03-30 17:16] LABS: HEMOGLOBIN A1a 0.6 %; HEMOGLOBIN A1b 0.6 %; HEMOGLOBIN Ao 85.8 %; HEMOGLOBIN P3 3.3 %
== END 2016-03-29 11:07 | disposition home or self-care (01) ==
LOC: NEPA 16:05 → NEDA 20:18 → NEPHCDU 23:58
PROVIDERS: ADMIT Internal Medicine; ATTEND Internal Medicine
DX: I13.0 Hypertensive heart and chronic kidney disease with heart failure and stage 1 through stage 4 chronic kidney disease, or unspecified chronic kidney disease (principal); I50.9 Heart failure, unspecified; I16.0 Hypertensive urgency; R53.1 Weakness; D50.9 Iron deficiency anemia, unspecified; N18.3 Chronic kidney disease, stage 3 (moderate); E11.22 Type 2 diabetes mellitus with diabetic chronic kidney disease; Z91.19 Patient's noncompliance with other medical treatment and regimen; G62.9 Polyneuropathy, unspecified; R51 Headache
CPT/HCPCS: 71010; 80048; 80053; 80061; 82550; 82552; 82728; 82948; 83036; 83540; 83550; 83735; 83880; 84443; 84484; 85025; 85610; 85730; 93005; 93306; 93970; 96374; 96375; 99285; G0378; J0360; J1815; J1940

== ENCOUNTER 2017-02-14 08:21 | Inpatient (IN) | payer SELFPAY ==
[~2017-02-14] VITALS: Ht 177.8 cm; Wt 116.4 kg
[2017-02-14] VITALS (10 sets, daily range): BP systolic 122–146; BP diastolic 63–76; PULSE 80–108; RESP 16–23; TEMP 95.5–100.5; O2SAT 96–100
[~2017-02-14 08:21] MED LIST changes: +AMLO5 PO; +ASPI81TA23 PO; +CARV12.5 PO; -CARV6.25 PO; -CLIN150 PO; -CLON.1 PO; -COLL30OI3 TOP; +FERR325T PO; +FURO20TA PO; +GABA300C5 PO; -GABA600T PO; +GLIP5TAB8 PO; +HYDR-3801 PO; -HYDR100T2 PO; +ISOS20TA PO; -LACT PO; -METF-324 PO; -PERC5TAB12 PO; +PRAV40TA PO; +PROT40TA PO
[2017-02-14] MEDS ORDERED: SODIUM CHLORIDE 0.9% FLUSH 10 ML FLUSH IVF PRN (09:00)
[2017-02-14] MEDS ORDERED: ONDANSETRON HCL 4 MG/2 ML VIAL IV ONE (09:00)
[2017-02-14] MEDS ORDERED: SODIUM CHLORID 0.9% 500 ML INJ 500 ML IV ONE (09:00)
[2017-02-14 09:20] LABS: AUTOMATED NEUTROPHIL # 13.1 TH/MM3 (1.8-7.7); BASOPHIL # 0.1 TH/MM3 (0-0.2); BASOPHIL % 0.6 % (0.0-2.0); EOSINOPHIL % 0.1 % (0.0-4.0); HEMATOCRIT 23.3 % (39.0-51.0); LYMPH % 5.7 % (9.0-44.0); LYMPHOCYTE # 0.8 TH/MM3 (1.0-4.8); MEAN CELL VOLUME 60.9 FL (80.0-100.0); MEAN CORPUSCULAR HEMOGLOBIN 17.1 PG (27.0-34.0); MONO % 4.4 % (0.0-8.0); NEUT % 89.2 % (16.0-70.0); PLATELET COUNT 369 TH/MM3 (150-450); RED BLOOD COUNT 3.83 MIL/MM3 (4.50-5.90); RED CELL DISTRIBUTION WIDTH 18.6 % (11.6-17.2); WHITE BLOOD COUNT 14.7 TH/MM3 (4.0-11.0)
[2017-02-14 09:21] LABS: APTT (PATIENT) 22.1 SEC (24.3-30.1); HEMO FLAGS DIFF FINAL; MEAN CORPUSCULAR HGB CONC 28.2 % (32.0-36.0); PROTHROMBIN TIME - PATIENT 10.7 SEC (9.8-11.6)
--- NOTE | 2017-02-14 09:22 | PD ---
HPI Chief Complaint: Chest Pain Time Seen by Provider: 08:54 Travel History International Travel<30 days: No Contact w/Intl Traveler<30days: No Traveled to known affect area: No History of Present Illness HPI A 51-year-old man with a history of hypertension diabetes neuropathy and reported history of CHF per the records on the patient denies, presents to the emergency department complaining of epigastric and chest pain is been going on since 10:11 PM last night. Patient states she's been a little bit sick. He has a couple sick family members with URI symptoms and some GI upset. He states last night he started getting epigastric abdominal pain and retrosternal chest pain. Symptoms been constant since onset, worse with exertion and walking. He's had one episode of vomiting one episode of slightly loose stools but no definite diarrhea. Symptoms of been persistent since onset. Review of systems is positive for one episode of nosebleed which is not uncommon for him. No other complaints. He denies any family history of early onset heart disease. Denies tobacco use. Denies any history of SD or CAD. History Past Medical History Narrative Medical Hypertension Diabetes, not on any medications Reported history CHF and the record Neuropathy Social History Alcohol Use: No Tobacco Use: No Allergies-Medications (Allergen,Severity, Reaction): Coded Allergies: No Known Allergies (Verified Adverse Reaction, Unknown, 02/14/17) Reported Meds & Prescriptions Reported Meds & Active Scripts Active Gabapentin 300 Mg Cap 300 Mg PO TID Isosorbide Mononitrate 20 Mg Tab 20 Mg PO BID@07,14 Coreg (Carvedilol) 12.5 Mg Tab 12.5 Mg PO BID Norvasc (Amlodipine Besylate) 5 Mg Tab 5 Mg PO DAILY Hydralazine (Hydralazine HCl) 100 Mg Tab 100 Mg PO TID Take with meals Review of Systems Except as stated in HPI: all other systems reviewed are Neg Physical Exam Narrative GENERAL: This a 51-year-old man, no acute distress. SKIN: Focused skin assessment warm/dry. Decreased skin turgor. HEAD: Atraumatic. Normocephalic. EYES: Pupils equal and round. No scleral icterus. No injection or drainage. ENT: No nasal bleeding or discharge. Mucous membranes pink and moist. NECK: Trachea midline. Visible prominent jugular venous pulsations. CARDIOVASCULAR: Regular rate and rhythm. Active precordium with displaced PMI and soft systolic murmur. RESPIRATORY: No accessory muscle use. Clear to auscultation. Breath sounds equal bilaterally. GASTROINTESTINAL: Abdomen soft, non-tender, nondistended. Hepatic and splenic margins not palpable. MUSCULOSKELETAL: No obvious deformities. No edema. NEUROLOGICAL: Awake and alert. No obvious cranial nerve deficits. Motor grossly within normal limits. Normal speech. RECTAL: Light brown stool in the rectal vault. Guaiac positive. Data Data Last Documented VS Vital Signs Date Time Temp Pulse Resp B/P (MAP) Pulse Ox O2 Delivery O2 Flow Rate FiO2 02/14/17 08:39 100.2 99 20 141/75 (97) 97 Room Air Orders Orders Electrocardiogram (02/14/17 08:54) B-Type Natriuretic Peptide (02/14/17 08:54) Complete Blood Count With Diff (02/14/17 08:54) Comprehensive Metabolic Panel (02/14/17 08:54) Magnesium (Mg) (02/14/17 08:54) Prothrombin Time / Inr (Pt) (02/14/17 08:54) Act Partial Throm Time (Ptt) (02/14/17 08:54) Troponin I (02/14/17 08:54) Lipase (02/14/17 08:54) Chest, Single Ap (02/14/17 08:54) Ecg Monitoring (02/14/17 08:54) Iv Access Insert/Monitor (02/14/17 08:54) Oximetry (02/14/17 08:54) Oxygen Administration (02/14/17 08:54) Sodium Chloride 0.9% Flush (Ns Flush) (02/14/17 09:00) Sodium Chlorid 0.9% 500 Ml Inj (Ns 500 M (02/14/17 09:00) Ondansetron Inj (Zofran Inj) (02/14/17 09:00) Type And Screen (02/14/17 09:42) Red Blood Cells (Rbc) (02/14/17 09:42) Blood Product Administration (02/14/17 09:42) Sodium Chlor 0.9% 250 Ml Inj (Ns 250 Ml (02/14/17 09:45) Labs Laboratory Tests Test 02/14/17 08:58 White Blood Count 14.7 TH/MM3 Red Blood Count 3.83 MIL/MM3 Hemoglobin 6.6 GM/DL Hematocrit 23.3 % Mean Corpuscular Volume 60.9 FL Mean Corpuscular Hemoglobin 17.1 PG Mean Corpuscular Hemoglobin Concent 28.2 % Red Cell Distribution Width 18.6 % Platelet Count 369 TH/MM3 Mean Platelet Volume 8.6 FL Neutrophils (%) (Auto) 89.2 % Lymphocytes (%) (Auto) 5.7 % Monocytes (%) (Auto) 4.4 % Eosinophils (%) (Auto) 0.1 % Basophils (%) (Auto) 0.6 % Neutrophils # (Auto) 13.1 TH/MM3 Lymphocytes # (Auto) 0.8 TH/MM3 Monocytes # (Auto) 0.7 TH/MM3 Eosinophils # (Auto) 0.0 TH/MM3 Basophils # (Auto) 0.1 TH/MM3 CBC Comment DIFF FINAL Differential Comment Prothrombin Time 10.7 SEC Prothromb Time International Ratio 1.0 RATIO Activated Partial Thromboplast Time 22.1 SEC Blood Urea Nitrogen 20 MG/DL Creatinine 2.04 MG/DL Random Glucose 263 MG/DL Total Protein 7.7 GM/DL Albumin 3.6 GM/DL Calcium Level 8.8 MG/DL Magnesium Level 1.6 MG/DL Alkaline Phosphatase 156 U/L Aspartate Amino Transf (AST/SGOT) 214 U/L Alanine Aminotransferase (ALT/SGPT) 113 U/L Total Bilirubin 1.2 MG/DL Sodium Level 136 MEQ/L Potassium Level 3.0 MEQ/L Chloride Level 101 MEQ/L Carbon Dioxide Level 26.8 MEQ/L Anion Gap 8 MEQ/L Estimat Glomerular Filtration Rate 42 ML/MIN Troponin I LESS THAN 0.02 NG/ML B-Type Natriuretic Peptide 123 PG/ML Lipase 126 U/L [facility] Medical Decision Making Medical Screen Exam Complete: Yes Emergency Medical Condition: Yes Interpretation(s) My review of EKG: Sinus rhythm at a rate of 96, leftward axis, septal Q waves, lateral T wave inversions nonspecific but could represent ischemia. LABS: CBC remarkable for white count of 14.7, hemoglobin 6.6 with microcytic indices CMP were remarkable from a BUN and creatinine, glucose 263, elevated AST ALT and total bili Troponin negative BNP 123 Lipase 126 Coags unremarkable Differential Diagnosis GI upset or gastritis, ACS, pericarditis, dissection, other Narrative Course Medical decision making INITIAL: This Is a 51-year-old man who presents to the emergency department complaining of epigastric and retrosternal chest pain, constant since yesterday. Denies any significant heart history. Record however shows a history of CHF. He is an abnormal EKG with some lateral T wave inversions, he also has a abnormal exam with a displaced PMI prominent jugular venous pulsations that would suggest cardiomyopathy myopathy or hypertensive heart disease. Even though history is mildly suggestive of ACS, given patient's history and abnormal findings, we'll recommend chest pain Center for further evaluation. No evidence of dissection. We'll reassess. FINAL: Patient's hyperdynamic precordium appears to be due to marked anemia. 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 Rectal exam was performed and showed light brown stool in the rectal vault that was guaiac positive. Unclear if this is related to patient's chest/abdominal pain or not. He does have abnormal liver enzymes that are change from baseline. He also some kidney disease slightly worsen previous. We'll plan transfusion. Patient will be admitted for further evaluation. [facility] Point of Care Internal Pos. & Neg. Controls: Passed Fecal Specimen Occult Blood: Positive Physician Communication Physician Communication Spoke with Dr. Rider, will admit patient. Diagnosis Primary Impression: Anemia Additional Impression: LAURA (acute kidney injury) Admitting Information Admitting Physician Requests: Admit Domingo Lawler MD Feb 14, 2017 09:22
[2017-02-14 09:26] LABS: ANION GAP 8 MEQ/L (5-15); AST (GOT) 214 U/L (15-37); BICARBONATE 26.8 MEQ/L (21.0-32.0); BLOOD UREA NITROGEN 20 MG/DL (7-18); CHLORIDE 101 MEQ/L (98-107); GLOMERULAR FILTRATION RATE 42 ML/MIN (>89); MAGNESIUM 1.6 MG/DL (1.5-2.5); SODIUM (NA) 136 MEQ/L (136-145)
[2017-02-14 09:27] LABS: ALT (GPT) 113 U/L (12-78)
[2017-02-14 09:31] LABS: ALKALINE PHOSPHATASE 156 U/L (45-117); TOTAL BILIRUBIN ADULT 1.2 MG/DL (0.2-1.0)
[2017-02-14] MEDS ORDERED: SODIUM CHLOR 0.9% 250 ML INJ 250 ML IV ONE (09:45)
--- NOTE | 2017-02-14 09:57 | RADRPT ---
EXAM DATE/TIME: 02/14/2017 09:11 [place] COMPARISON: CHEST SINGLE AP, March 27, 2016, 18:17. INDICATIONS : Chest Pain MEDICAL HISTORY : None. SURGICAL HISTORY : None. ENCOUNTER: Initial ACUITY: 1 day PAIN SCORE: 5/10 LOCATION: Bilateral chest FINDINGS: There is mild bibasilar atelectasis. No pleural effusion seen. No pneumothorax. Heart size stable, within normal limits. CONCLUSION: Trace bibasilar atelectasis. Bernardo Chauhan MD on February 14, 2017 at 9:55 Board Certified Radiologist. This report was verified electronically.
[2017-02-14] MEDS ORDERED: SENNOSIDES 8.6 MG TAB PO PRN (11:00)
[2017-02-14] MEDS ORDERED: DEXTROSE 50% IN WATER 50 ML VIAL(D50) IV PUSH PRN (11:00)
[2017-02-14] MEDS ORDERED: SODIUM CHLORIDE 0.9% FLUSH 10 ML FLUSH IV FLUSH PRN (11:00)
[2017-02-14] MEDS ORDERED: BISACODYL 10 MG SUPP RECTAL PRN (11:00)
[2017-02-14] MEDS ORDERED: GLUCAGON 1 MG/ML VIAL OTHER PRN (11:00)
[2017-02-14] MEDS ORDERED: ACETAMINOPHEN 325 MG TAB PO PRN (11:00)
[2017-02-14] MEDS ORDERED: POTASSIUM CHLORIDE 20 MEQ CONTROLLED RELEASE TAB PO ONE (11:00)
[2017-02-14] MEDS ORDERED: MAGNESIUM HYDROXIDE SUSP 30 ML CUP PO PRN (11:00)
[2017-02-14] MEDS ORDERED: LACTULOSE SYRUP 20 GM/30 ML CUP PO PRN (11:00)
[2017-02-14] MEDS ORDERED: ONDANSETRON HCL 4 MG/2 ML VIAL IVP PRN (11:00)
[2017-02-14] MEDS ORDERED: NALOXONE HCL 0.4 MG/ML AMP IV PUSH PRN (11:00)
[2017-02-14] MEDS: POTASSIUM CHLOR 10 MEQ PREMIX 100 ML IV SCH ×3 (11:20→13:56)
--- NOTE | 2017-02-14 11:20 | HHI.HP ---
[facility] Primary [facility] Physician No Primary Care Physician Admission Diagnosis anemia, chest pain, GI bleed Diagnoses: Travel History International Travel<30 Days: No Contact w/Intl Traveler <30 Da: No Traveled to Known Affected Are: No History of Present Illness 51-year-old male with a past medical history significant for diabetes mellitus, hypertension, CHF (EF 55-60% on 03/28/16) and neuropathy presents with chest and abdominal pain since 10 PM last night. 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 The patient reports 1 episode of NBNB emesis and 1 of diarrhea, denies black tarry stools or bloody stools. Hemoccult positive in the ED. He describes his chest pain as central, sharp and now resolved. The patient's labs are significant for an H&H of 6.6/ 23.3 with a baseline Hemoccult of 8.5-9.0. He also has acute on chronic kidney injury with a creatinine of 2.04 (baseline 0.6) and a new transaminitis with AST /ALT 214/113. Review of Systems Denies fever or chills Denies blurry vision, otorrhea, rhinorrhea Denies sore throat and cough No chest pain, palpitations, shortness of breath Positive abdominal pain Positive emesis/diarrhea Denies muscle pain/weakness No rashes Past Family Social History Past Medical History Type 2 diabetes mellitus Hypertension CHF Neuropathy Past Surgical History None Reported Medications Reported Meds & Active Scripts Active Gabapentin 300 Mg Cap 300 Mg PO TID Isosorbide Mononitrate 20 Mg Tab 20 Mg PO BID@07,14 Coreg (Carvedilol) 12.5 Mg Tab 12.5 Mg PO BID Norvasc (Amlodipine Besylate) 5 Mg Tab 5 Mg PO DAILY Hydralazine (Hydralazine HCl) 100 Mg Tab 100 Mg PO TID Take with meals Allergies: Coded Allergies: No Known Allergies (Verified Allergy, Unknown, 02/14/17) Family History Father with diabetes mellitus. Social History She denies alcohol, tobacco and illicit drugs. Physical Exam Vital Signs Vital Signs Date Time Temp Pulse Resp B/P (MAP) Pulse Ox O2 Delivery O2 Flow Rate FiO2 02/14/17 08:39 100.2 99 20 141/75 (97) 97 Room Air 02/14/17 08:22 100.5 108 20 139/76 (97) 98 Room Air Physical Exam GENERAL: male lying in bed SKIN: No rashes, ecchymoses or lesions. Cool and dry. HEAD: Atraumatic. Normocephalic. No temporal or scalp tenderness. EYES: Pupils equal round and reactive. Extraocular motions intact. No scleral icterus. No injection or drainage. ENT: Nose without bleeding, purulent drainage or septal hematoma. Throat without erythema, tonsillar hypertrophy or exudate. Uvula midline. Airway patent. NECK: Trachea midline. No JVD or lymphadenopathy. Supple, nontender, no meningeal signs. CARDIOVASCULAR: Regular rate. 2/5 SULEIMAN. RESPIRATORY: Clear to auscultation. Breath sounds equal bilaterally. No wheezes , rales, or rhonchi. GASTROINTESTINAL: Abdomen soft, non-tender, nondistended. No hepato-splenomegaly , or palpable masses. No guarding. MUSCULOSKELETAL: Extremities without clubbing, cyanosis, or edema. No joint tenderness, effusion, or edema noted. No calf tenderness. Negative Homans sign bilaterally. NEUROLOGICAL: Awake and alert. Cranial nerves II through XII intact. Motor and sensory grossly within normal limits. Normal speech. Laboratory Laboratory Tests Test 02/14/17 08:58 White Blood Count 14.7 Red Blood Count 3.83 Hemoglobin 6.6 Hematocrit 23.3 Mean Corpuscular Volume 60.9 Mean Corpuscular Hemoglobin 17.1 Mean Corpuscular Hemoglobin Concent 28.2 Red Cell Distribution Width 18.6 Platelet Count 369 Mean Platelet Volume 8.6 Neutrophils (%) (Auto) 89.2 Lymphocytes (%) (Auto) 5.7 Monocytes (%) (Auto) 4.4 Eosinophils (%) (Auto) 0.1 Basophils (%) (Auto) 0.6 Neutrophils # (Auto) 13.1 Lymphocytes # (Auto) 0.8 Monocytes # (Auto) 0.7 Eosinophils # (Auto) 0.0 Basophils # (Auto) 0.1 CBC Comment DIFF FINAL Differential Comment Prothrombin Time 10.7 Prothromb Time International Ratio 1.0 Activated Partial Thromboplast Time 22.1 Blood Urea Nitrogen 20 Creatinine 2.04 Random Glucose 263 Total Protein 7.7 Albumin 3.6 Calcium Level 8.8 Magnesium Level 1.6 Alkaline Phosphatase 156 Aspartate Amino Transf (AST/SGOT) 214 Alanine Aminotransferase (ALT/SGPT) 113 Total Bilirubin 1.2 Sodium Level 136 Potassium Level 3.0 Chloride Level 101 Carbon Dioxide Level 26.8 Anion Gap 8 Estimat Glomerular Filtration Rate 42 Troponin I LESS THAN 0.02 B-Type Natriuretic Peptide 123 Lipase 126 Result Diagram: 02/14/1785702/14/17857 Caprini VTE Risk Assessment Caprini VTE Risk Assessment: No/Low Risk (score <= 1) VTE Pharm Contraindication: Active bleeding Caprini Risk Assessment Model Point Value = 1 Point Value = 2 Point Value = 3 Point Value = 5 Age 41-60 Minor surgery BMI > 25 kg/m2 Swollen legs Varicose veins or History of unexplained or recurrent spontaneous Oral contraceptives or hormone replacement Sepsis (< 1 month) Serious lung disease, including pneumonia (< 1 month) Abnormal pulmonary function Acute myocardial infarction Congestive heart failure (< 1 month) History of inflammatory bowel disease Medical patient at bed rest Age 61-74 Arthroscopic surgery Major open surgery (> 45 min) Laparoscopic surgery (> 45 min) Malignancy Confined to bed (> 72 hours) Immobilizing plaster cast Central venous access Age >= 75 History of VTE Family history of VTE Factor V Leiden Prothrombin [id number] Lupus anticoagulant Anticardiolipin antibodies Elevated serum homocysteine Heparin-induced thrombocytopenia Other congenital or acquired thrombophilia Stroke (< 1 month) Elective arthroplasty Hip, pelvis, or leg fracture Acute spinal cord injury (< 1 month) Prophylaxis Regimen Total Risk Factor Score Risk Level Prophylaxis Regimen 0-1 Low Early ambulation 2 Moderate Order ONE of the following: *Sequential Compression Device (SCD) *Heparin 5000 units SQ BID 3-4 Higher Order ONE of the following medications: *Heparin 5000 units SQ TID *Enoxaparin/Lovenox 40 mg SQ daily (WT < 150 kg, CrCl > 30 mL/min) *Enoxaparin/Lovenox 30 mg SQ daily (WT < 150 kg, CrCl > 10-29 mL/min) *Enoxaparin/Lovenox 30 mg SQ BID (WT < 150 kg, CrCl > 30 mL/min) AND/OR *Sequential Compression Device (SCD) 5 or more Highest Order ONE of the following medications: *Heparin 5000 units SQ TID (Preferred with Epidurals) *Enoxaparin/Lovenox 40 mg SQ daily (WT < 150 kg, CrCl > 30 mL/min) *Enoxaparin/Lovenox 30 mg SQ daily (WT < 150 kg, CrCl > 10-29 mL/min) *Enoxaparin/Lovenox 30 mg SQ BID (WT < 150 kg, CrCl > 30 mL/min) AND *Sequential Compression Device (SCD) Assessment and Plan Assessment and Plan 51-year-old male with a past medical history significant for hypertension, diabetes, CHF and history of GI AVM status post cautery presents with abdominal pain and chest pain since last night. The patient was found to be anemic and Hemoccult-positive in the ED. He also has elevated creatinine and a new transaminitis. 1. Anemia/GI bleed Hemoccult-positive in the ED Receiving 2 units PRBCs Trend H&H Protonix IV Gastroenterology consulted, appreciate recommendations 2. Acute on chronic kidney injury Creatinine 2.04, baseline 1.6 Encourage by mouth intake - holding IVFs as patient has CHF and is currently being transfused Follow labs in the a.m. 3. Transaminitis, new Patient with elevated AST/ALT/alkaline phosphatase Hepatitis profile pending GI consulted Follow CMP 4. Emesis/diarrhea Patient with one episode last night Clear liquid diet 5. Hypokalemia Supplemented IV and by mouth Follow-up BMP 6. CHF Caution with IV fluids Monitor for signs of volume overload BNP 123 7. Type 2 diabetes mellitus A1c pending SSI 8. Hypertension Continue home medication 9. Neuropathy Continue home gabapentin FEN Liquid diet Electrolytes, as above Holding pharmacologic anticoagulation for GI bleed Physician Certification 2 Midnight Certification Type: Admission for Inpatient Services Order for Inpatient Services The services are ordered in accordance with Medicare regulations or non- Medicare payer requirements, as applicable. In the case of services not specified as inpatient-only, they are appropriately provided as inpatient services in accordance with the 2-midnight benchmark. Estimated LOS (days): 2 2 days is the estimated time the patient will need to remain in the hospital, assuming treatment plan goals are met and no additional complications. Post-Hospital Plan: Not yet determined Genia Rider MD Feb 14, 2017 11:20
--- NOTE | 2017-02-14 11:50 | EKG ---
Date Performed: 02/14/2017 Time Performed: 08:42:12 PTAGE: 51 years EKG: Sinus rhythm POSSIBLE LEFT ATRIAL ENLARGEMENT POSSIBLE LEFT VENTRICULAR HYPERTROPHY MODERATE T-WAVE ABNORMALITY, CONSIDER LATERAL ISCHEMIA ABNORMAL ECG PREVIOUS TRACING 03/28/16 Compared to prior study, nonspecific T-wave changes are more promine nt in the lateral leads. DOCTOR: Niko Campbell Interpretating Date/Time 02/14/2017 11:48:52
[2017-02-14] MEDS: PANTOPRAZOLE SODIUM 40 MG VIAL IV PUSH SCH (12:13)
[2017-02-14] MEDS: INSULIN ASPART SUPPLEMENTAL SCALE SQ SCH ×3 (12:13→20:57)
--- NOTE | 2017-02-14 12:31 | PD.CONS ---
HPI History of Present Illness This is a 51 year old AA with a past medical history significant for diabetes mellitus, hypertension, CHF (EF 55-60% on 03/28/16) and neuropathy who presented to [facility] with chest and abdominal pain that started last night. He was found to have severe anemia of H&H of 6.6/23.3, his baseline is 8.5-9.0. Hemoccult positive in the ED. 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 He had colonoscopy during that time with suboptimal prep. Patient had one episode of vomiting this morning that consists of clear mucus. Denies abd pain, hematochezia or melena. He had one episode of diarrhea last night. Labs significant for transaminitis with AST/ ALT 214/113. Denies alcohol intake, no previous hx of liver dz. States he has been taking one Tylenol a day for a while for neuropathy. Currently, receiving blood. (Bahman Chandler) PFSH Past Medical History Type 2 diabetes mellitus Hypertension CHF Neuropathy Past Surgical History None (Bahman Chandler) Coded Allergies: No Known Allergies (Verified Allergy, Unknown, 02/14/17) Medications Current Medications Medications (Trade) Dose Ordered Sig/Catalina Route Start Time Stop Time Status Last Admin Sodium Chloride 250 ml @ 15 mls/hr ONCE ONCE IV 02/14/17 09:45 02/15/17 02:24 02/14/17 11:59 (NS Flush) 2 ml UNSCH PRN IV FLUSH 02/14/17 11:00 (NS Flush) 2 ml BID IV FLUSH 02/14/17 21:00 (Tylenol) 650 mg Q4H PRN PO 02/14/17 11:00 (Zofran Inj) 4 mg Q6H PRN IVP 02/14/17 11:00 (Narcan Inj) 0.4 mg UNSCH PRN IV PUSH 02/14/17 11:00 (Mariaa-Colace) 1 tab BID PO 02/14/17 21:00 (Milk Of Magnesia Liq) 30 ml Q12H PRN PO 02/14/17 11:00 (Senokot) 17.2 mg Q12H PRN PO 02/14/17 11:00 (Dulcolax Supp) 10 mg DAILY PRN RECTAL 02/14/17 11:00 (Lactulose Liq) 30 ml DAILY PRN PO 02/14/17 11:00 Potassium Chloride 100 ml @ 100 mls/hr Q1H IV 02/14/17 11:00 02/14/17 13:59 02/14/17 12:02 (D50w (Vial) Inj) 50 ml UNSCH PRN IV PUSH 02/14/17 11:00 (Glucagon Inj) 1 mg UNSCH PRN OTHER 02/14/17 11:00 (NovoLOG SUPPLEMENTAL SCALE) 1 ACHS SLIDING SCALE SQ 02/14/17 12:00 (Norvasc) 5 mg DAILY PO 02/15/17 09:00 (Coreg) 12.5 mg BID PO 02/14/17 21:00 (Neurontin) 300 mg TID PO 02/14/17 13:00 (Apresoline) 100 mg TID PO 02/14/17 13:00 (Ismo) 20 mg BID@07,14 PO 02/14/17 14:00 (Protonix Inj) 40 mg Q24H IV PUSH 02/14/17 12:00 Family History Father with diabetes mellitus. Social History She denies alcohol, tobacco and illicit drugs. (Bahman Chandler) Review of Systems Constitutional: DENIES: Change in appetite Endocrine: DENIES: Polyuria Eyes: DENIES: Double Vision Ears, nose, mouth, throat: DENIES: Hoarseness Respiratory: DENIES: Shortness of breath Cardiovascular: DENIES: Lower Extremity Edema Gastrointestinal: COMPLAINS OF: Diarrhea, Nausea, Vomiting, DENIES: Abdominal pain, Black stools, Bloody stools, Constipation, Difficulty Swallowing, Anorexia , Odynophagia, Swelling of Abdomen, Heartburn, Hematemesis Genitourinary: DENIES: Hematuria Musculoskeletal: DENIES: Neck pain Integumentary: DENIES: Jaundice Hematologic/lymphatic: DENIES: Bruising Immunologic/allergic: DENIES: Eczema Neurologic: DENIES: Abnormal gait Psychiatric: DENIES: Anxiety (Bahman Chandler) GI Exam Vitals I&O Vital Signs Date Time Temp Pulse Resp B/P (MAP) Pulse Ox O2 Delivery O2 Flow Rate FiO2 02/14/17 11:47 100.0 89 16 131/66 97 02/14/17 08:39 100.2 99 20 141/75 (97) 97 Room Air 02/14/17 08:22 100.5 108 20 139/76 (97) 98 Room Air Imaging Last Impressions Chest X-Ray 02/14/17 0854 Signed Impressions: Service Date/Time: Tuesday, February 14, 2017 09:11 - CONCLUSION: Trace bibasilar atelectasis. Bernardo Chauhan MD Laboratory Test 02/14/17 08:58 White Blood Count 14.7 TH/MM3 Red Blood Count 3.83 MIL/MM3 Hemoglobin 6.6 GM/DL Hematocrit 23.3 % Mean Corpuscular Volume 60.9 FL Mean Corpuscular Hemoglobin 17.1 PG Mean Corpuscular Hemoglobin Concent 28.2 % Red Cell Distribution Width 18.6 % Platelet Count 369 TH/MM3 Mean Platelet Volume 8.6 FL Neutrophils (%) (Auto) 89.2 % Lymphocytes (%) (Auto) 5.7 % Monocytes (%) (Auto) 4.4 % Eosinophils (%) (Auto) 0.1 % Basophils (%) (Auto) 0.6 % Neutrophils # (Auto) 13.1 TH/MM3 Lymphocytes # (Auto) 0.8 TH/MM3 Monocytes # (Auto) 0.7 TH/MM3 Eosinophils # (Auto) 0.0 TH/MM3 Basophils # (Auto) 0.1 TH/MM3 CBC Comment DIFF FINAL Differential Comment Prothrombin Time 10.7 SEC Prothromb Time International Ratio 1.0 RATIO Activated Partial Thromboplast Time 22.1 SEC Blood Urea Nitrogen 20 MG/DL Creatinine 2.04 MG/DL Random Glucose 263 MG/DL Total Protein 7.7 GM/DL Albumin 3.6 GM/DL Calcium Level 8.8 MG/DL Magnesium Level 1.6 MG/DL Alkaline Phosphatase 156 U/L Aspartate Amino Transf (AST/SGOT) 214 U/L Alanine Aminotransferase (ALT/SGPT) 113 U/L Total Bilirubin 1.2 MG/DL Sodium Level 136 MEQ/L Potassium Level 3.0 MEQ/L Chloride Level 101 MEQ/L Carbon Dioxide Level 26.8 MEQ/L Anion Gap 8 MEQ/L Estimat Glomerular Filtration Rate 42 ML/MIN Troponin I LESS THAN 0.02 NG/ML B-Type Natriuretic Peptide 123 PG/ML Lipase 126 U/L Physical Examination HEENT: normocephalic; atraumatic; no jaundice. NECK: Neck is supple, no JVD, no lymphadenopathy. CHEST: Chest is clear to auscultation and percussion. CARDIAC: Regular rate and rhythm with no murmur gallop or rubs. ABDOMEN: Soft, nondistended, nontender; no hepatosplenomegaly; bowel sounds are present in all four quadrants. EXTREMITIES: No clubbing, cyanosis, or edema. SKIN: Normal; no rash; no jaundice. POWER BUILDER DEVELOPER: No focal deficits; alert and oriented times three. (Bahman Chandler) Assessment and Plan Plan - Acute on chronic anemia- no obvious gi bleed. He was found to have severe anemia of H&H of 6.6/23.3, his baseline is 8.5-9.0. Hemoccult positive in the ED. 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 He had colonoscopy during that time with suboptimal prep. Patient had one episode of vomiting this morning that consists. Currently, receiving blood. of clear mucus. Denies abd pain, hematochezia or melena. He had one episode of diarrhea last night. - transaminitis with AST/ALT 214/113, this is new. Denies alcohol intake, no previous hx of liver dz. States he has been taking one Tylenol a day for a while for neuropathy. - LAURA- per attending - diabetes mellitus, hypertension, CHF (EF 55-60% on 03/28/16) and neuropathy per attending Plan: - Clears - EGD/colonoscopy in the - [facility] today - NPO mn - VÍCTOR, AMA, ASMA - Iron, Fe - alpha antitrypsin, ceruloplasmin - hepatitis panel pending - US - Monitor hh - Transfuse as needed - Cont. PPI - Patient seen and examined by Dr. Michaels and bina and this note is written on his behalf. (Bahman Chandler) Physician Comments Patient seen and examined Agree with above Continue with current supportive care Monitor labs Plan for an EGD with colonoscopy tomorrow (Giovanny Michaels MD) Bahman Chandler Feb 14, 2017 12:31 Giovanny Michaels MD Feb 14, 2017 16:46
[2017-02-14] MEDS ORDERED: GABAPENTIN 300 MG CAP PO SCH (13:00)
[2017-02-14] MEDS: hydrALAZINE HCL 100 MG TAB PO SCH ×2 (13:56→17:59)
[2017-02-14] MEDS: ISOSORBIDE MONONITRATE 20 MG TAB PO SCH (14:12)
[2017-02-14] MEDS ORDERED: PEG (High)/E-LYTE SOLN 4000 ML BTL PO ONE (16:00)
--- NOTE | 2017-02-14 17:15 | RADRPT ---
EXAM DATE/TIME: 02/14/2017 15:25 [place] COMPARISON: No previous studies available for comparison. INDICATIONS : Increased lab values. MEDICAL HISTORY : Hypertension. Neuropathy. Diabetes. SURGICAL HISTORY : Eye surgery. ENCOUNTER: Initial ACUITY: 1 day PAIN SCORE: 0/10 LOCATION: Bilateral upper quadrant MEASUREMENTS: LIVER: 14.3 cm length COMMON DUCT: 3 mm RIGHT KIDNEY: 9.6 x 5.5 x 5.4 cm SPLEEN: 9.2 cm length FINDINGS: LIVER: Normal echotexture without focal lesion or ductal dilatation. COMMON DUCT: No intraluminal mass or stone visualized. GALLBLADDER: Contains no stones, demonstrates no wall thickening or pericholecystic fluid. PANCREAS: The visualized portions are within normal limits. RIGHT KIDNEY: No hydronephrosis, stone or mass. SPLEEN: No focal lesion. CONCLUSION: Normal examination. Quentin Galloway MD on February 14, 2017 at 17:13 Board Certified Radiologist. This report was verified electronically.
[2017-02-14 18:04] LABS: CREATINE KINASE 72 U/L (39-308)
[2017-02-14 20:52] LABS: HEMATOCRIT 27.3 % (39.0-51.0); REVIEW FLAG FINAL
[2017-02-14] MEDS: GABAPENTIN 300 MG CAP PO SCH (20:57)
[2017-02-14] MEDS: DOCUSATE SODIUM 50 MG/SENNA 8.6 MG TAB PO SCH (20:57)
[2017-02-14] MEDS: SODIUM CHLORIDE 0.9% FLUSH 10 ML FLUSH IV FLUSH SCH (20:57)
[2017-02-14] MEDS: CARVEDILOL 12.5 MG TAB PO SCH (20:57)
[2017-02-14 21:05] LABS: TRANSFERRIN IRON PROFILE 298 MG/DL (200-360)
[2017-02-14 21:09] LABS: FERRITIN 7 NG/ML (26-388)
[2017-02-14 21:13] LABS: CREATINE KINASE 71 U/L (39-308)
[2017-02-15] VITALS: BP 117/62; PULSE 79; RESP 17; TEMP 98; O2SAT 96
[2017-02-15 04:00] VITALS: BP 112/60; PULSE 71; RESP 17; TEMP 97.2; O2SAT 96
[2017-02-15] MEDS: ISOSORBIDE MONONITRATE 20 MG TAB PO SCH ×2 (06:04→14:39)
[2017-02-15 06:49] LABS: AUTOMATED NEUTROPHIL # 6.5 TH/MM3 (1.8-7.7); BASOPHIL # 0.1 TH/MM3 (0-0.2); BASOPHIL % 0.8 % (0.0-2.0); EOSINOPHIL # 0.1 TH/MM3 (0-0.4); EOSINOPHIL % 1.4 % (0.0-4.0); HEMATOCRIT 24.2 % (39.0-51.0); HEMO FLAGS DIFF FINAL; LYMPH % 13.7 % (9.0-44.0); LYMPHOCYTE # 1.2 TH/MM3 (1.0-4.8); MEAN CELL VOLUME 65.5 FL (80.0-100.0); MEAN CORPUSCULAR HEMOGLOBIN 19.7 PG (27.0-34.0); NEUT % 74.1 % (16.0-70.0); PLATELET COUNT 326 TH/MM3 (150-450); RED CELL DISTRIBUTION WIDTH 22.7 % (11.6-17.2); WHITE BLOOD COUNT 8.7 TH/MM3 (4.0-11.0)
[2017-02-15 07:13] LABS: ANION GAP 7 MEQ/L (5-15); AST (GOT) 64 U/L (15-37); BICARBONATE 29.7 MEQ/L (21.0-32.0); BLOOD UREA NITROGEN 18 MG/DL (7-18); CHLORIDE 101 MEQ/L (98-107); GLOMERULAR FILTRATION RATE 44 ML/MIN (>89); POTASSIUM 3.3 MEQ/L (3.5-5.1); SODIUM (NA) 138 MEQ/L (136-145)
[2017-02-15 07:14] LABS: ALT (GPT) 83 U/L (12-78)
[2017-02-15 07:17] LABS: ALKALINE PHOSPHATASE 117 U/L (45-117); TOTAL BILIRUBIN ADULT 0.8 MG/DL (0.2-1.0)
[2017-02-15 08:00] VITALS: BP 132/74; PULSE 77; RESP 16; TEMP 98.2; O2SAT 92
[2017-02-15] MEDS: hydrALAZINE HCL 100 MG TAB PO SCH ×3 (08:06→17:35)
[2017-02-15] MEDS: INSULIN ASPART SUPPLEMENTAL SCALE SQ SCH ×4 (08:06→19:38)
[2017-02-15] MEDS: SODIUM CHLORIDE 0.9% FLUSH 10 ML FLUSH IV FLUSH SCH ×2 (08:06→19:37)
[2017-02-15] MEDS: GABAPENTIN 300 MG CAP PO SCH ×2 (08:06→19:36)
[2017-02-15] MEDS: amLODIPine BESYLATE 5 MG TAB PO SCH (08:06)
[2017-02-15] MEDS: CARVEDILOL 12.5 MG TAB PO SCH ×2 (08:06→19:36)
[2017-02-15] MEDS: DOCUSATE SODIUM 50 MG/SENNA 8.6 MG TAB PO SCH ×2 (08:07→19:35)
[2017-02-15] MEDS ORDERED: POTASSIUM CHLORIDE 10 MEQ CONTROLLED RELEASE TAB PO ONE (09:30)
[2017-02-15] MEDS ORDERED: ePHEDrine/NS 25 MG/5 ML SYR IV ONE (12:00)
[2017-02-15] MEDS ORDERED: GLYCOPYRROLATE 1 MG/5 ML SYRINGE IV PUSH ONE (12:00)
[2017-02-15] MEDS ORDERED: LIDOCAINE HCL 1% PF 5 ML SYRINGE OTHER ONE (12:00)
[2017-02-15] MEDS ORDERED: PROPOFOL 200 MG/20 ML AMP IV ONE (12:00)
[2017-02-15] MEDS ORDERED: PROPOFOL 500 MG/50 ML INJ 50 ML ONE (12:29)
--- NOTE | 2017-02-15 13:19 | GIPROC ---
[facility] [address] [facility]. [facility], [address] EGD PROCEDURE REPORT EXAM DATE: 02/15/2017 PATIENT NAME: Cortes Barillas MR #: [id number] BIRTHDATE: 1965 ATTENDING: Herlinda Multani MD ORDER #: [id number] SALES COMMUNICATIONS MANAGER: Alejandrina Barragan and Ariadne Begum STATUS: inpatient INDICATIONS: The patient is a 51 yr old male here for an EGD due to acute post hemorrhagic anemia PROCEDURE PERFORMED: EGD w/ control of bleeding MEDICATIONS: None and Per Anesthesia. TOPICAL ANESTHETIC: CONSENT: The patient understands the risks and benefits of the procedure and understands that these risks include, but are not limited to: sedation, allergic reaction, infection, perforation and/or bleeding. Alternative means of evaluation and treatment include, among others: physical exam, x-rays, and/or surgical intervention. The patient elects to proceed with this endoscopic procedure. medical equipment was checked for proper function. Hand hygiene and appropriate measures for infection prevention was taken. After the risks, benefits and alternatives of the procedure were thoroughly explained, Informed consent was verified, confirmed and timeout was successfully executed by the treatment team. The patient was anesthetized with topical anesthesia and the EC-[id number] (Pedi C) endoscope was introduced through the mouth and advanced to the second portion of the duodenum. Retroflexed views revealed no abnormalities The gastroscope was then slowly withdrawn and removed. ESOPHAGUS: The mucosa of the esophagus appeared normal. STOMACH: There was mild gastritis in the gastric antrum. 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 Argon plasma coagulation was applied to the site(s). With complete hemostasis achieved. ADVERSE EVENTS: There were no complications. IMPRESSIONS: 1. The esophagus appeared normal 2. There was mild gastritis in the gastric antrum 3. 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 Retroflexed views revealed no abnormalities RECOMMENDATIONS: 1. Anti-reflux regimen 2. Continue PPI 3. Avoid NSAIDS PATIENT CONDITION: stable DISPOSITION: Inpatient REPEAT EXAM: Return 1 year EGD Herlinda Multani MD eSigned: Herlinda Multani MD 02/15/2017 1:18 PM cc: PATIENT NAME: Cortes Barillas MR#: [id number]
--- NOTE | 2017-02-15 13:22 | GIPROC ---
[facility] [address] [facility]. [facility], [address] COLONOSCOPY PROCEDURE REPORT EXAM DATE: 02/15/2017 PATIENT NAME: Cortes Barillas MR #: [id number] BIRTHDATE: 1965 ENDOSCOPIST: Herlinda Multani MD ORDER #: [id number] INTERNAL RECRUITER: Alejandrina Barragan RN STATUS: inpatient INDICATIONS: The patient is a 51 yr old male here for a colonoscopy due to iron deficiency anemia PROCEDURE PERFORMED: Colonoscopy with biopsy MEDICATIONS: None and Per Anesthesia. PREP QUALITY: fair ESTIMATED BLOOD LOSS: None CONSENT: The patient understands the risks and benefits of the procedure and understands that these risks include, but are not limited to: sedation, allergic reaction, infection, perforation and/or bleeding. Alternative means of evaluation and treatment include, among others: physical exam, x-rays, and/or surgical intervention. The patient elects to proceed with this endoscopic procedure. medical equipment was checked for proper function. Hand hygiene and appropriate measures for infection prevention was taken. After the risks, benefits and alternatives of the procedure were thoroughly explained, Informed consent was verified, confirmed and timeout was successfully executed by the treatment team. A digital exam revealed internal hemorrhoids The Pentax EC-[id number] endoscope was introduced through the anus and advanced to the cecum, which was identified by both the appendix and ileocecal valve. The instrument was then slowly withdrawn as the colon was fully examined. COLON FINDINGS: A small smooth sessile polyp was found in the rectum. A biopsy was performed using cold forceps. Retroflexed views revealed internal hemorrhoids and Retroflexed views revealed medium internal hemorrhoids The scope was then completely withdrawn from the patient and the procedure terminated. PROCEDURE WITHDRAWAL TIME:6minutes ADVERSE EVENTS: There were no complications. IMPRESSIONS: 1. A small sessile polyp was found in the rectum; biopsy was performed using cold forceps 2. Retroflexed views revealed internal hemorrhoids 3. Retroflexed views revealed medium internal hemorrhoids 4. Revealed internal hemorrhoids RECOMMENDATIONS: 1. Yearly hemoccult 2. Specimen not retrieved RECALL: Return 5 years Colonoscopy Herlinda Multani MD eSigned: Herlinda Multani MD 02/15/2017 1:22 PM cc:
[2017-02-15] MEDS ORDERED: DO NOT ADM ANY ANTICOAGULANT DRUGS PRN (13:26)
--- NOTE | 2017-02-15 15:34 | EKG ---
Date Performed: 02/14/2017 Time Performed: 14:05:33 PTAGE: 51 years EKG: Sinus rhythm MINIMAL VOLTAGE CRITERIA FOR LVH, CONSIDER NORMAL VARIANT SEPTAL MYOCARDIAL INFARCTION , OF INDETERM INATE AGE Compared to prior tracing no significant change ABNORMAL ECG PREVIOUS TRACING : 02/14/2017 08.42 DOCTOR: Humberto Casanova Interpretating Date/Time 02/15/2017 15:34:24
--- NOTE | 2017-02-15 15:35 | EKG ---
Date Performed: 02/14/2017 Time Performed: 21:15:29 PTAGE: 51 years EKG: Sinus rhythm WITH OCCASIONAL VENTRICULAR PREMATURE COMPLEXES MODERATE VOLTAGE CRITERIA FOR LVH, CONSIDER NORMAL V ARIANT POSSIBLE SEPTAL MYOCARDIAL INFARCTION , OF INDETERMINATE AGE Compared to prior tracing no sign ificant change ABNORMAL ECG PREVIOUS TRACING : 02/14/2017 14.05 DOCTOR: Humberto Casanova Interpretating Date/Time 02/15/2017 15:34:38
--- NOTE | 2017-02-15 15:39 | HHI.PR ---
Subjective Remarks Patient denies abdominal pain. Denies further GI bleed stable vital signs. Objective Vitals Vital Signs Date Time Temp Pulse Resp B/P (MAP) Pulse Ox O2 Delivery O2 Flow Rate FiO2 02/15/17 13:42 76 18 122/66 (84) 96 02/15/17 13:39 75 18 115/61 (79) 97 02/15/17 13:29 98.7 73 18 111/55 (73) 97 02/15/17 08:00 98.2 77 16 132/74 (93) 92 02/15/17 04:00 97.2 71 17 112/60 (77) 96 02/15/17 00:00 98.0 79 17 117/62 (80) 96 02/14/17 20:00 98.2 84 17 122/67 (85) 96 02/14/17 16:00 95.5 82 18 143/76 (98) 97 I/O 02/14/17 02/14/17 02/14/17 02/15/17 02/15/17 02/15/17 07:00 15:00 23:00 07:00 15:00 23:00 Intake Total 253 ml 706 ml 240 ml 600 ml Output Total 300 ml Balance 253 ml 706 ml -60 ml 600 ml Intake Oral 360 ml 240 ml IV Total 200 ml Packed Cells 341 ml Blood Product IV Normal Saline Flush 53 ml 5 ml Other 600 ml Output Urine Total 300 ml # Voids 2 Result Diagram: 02/15/17 0607 02/15/17 0607 Imaging Last Impressions Chest X-Ray 02/14/17 0854 Signed Impressions: Service Date/Time: Tuesday, February 14, 2017 09:11 - CONCLUSION: Trace bibasilar atelectasis. Bernardo Chauhan MD Liver Ultrasound 02/14/17 0000 Signed Impressions: Service Date/Time: Tuesday, February 14, 2017 15:25 - CONCLUSION: Normal examination. Quentin Galloway MD Objective Remarks GENERAL: male lying in bed SKIN: No rashes, ecchymoses or lesions. Cool and dry. HEAD: Atraumatic. Normocephalic. No temporal or scalp tenderness. EYES: Pupils equal round and reactive. Extraocular motions intact. No scleral icterus. No injection or drainage. ENT: Nose without bleeding, purulent drainage or septal hematoma. Throat without erythema, tonsillar hypertrophy or exudate. Uvula midline. Airway patent. NECK: Trachea midline. No JVD or lymphadenopathy. Supple, nontender, no meningeal signs. CARDIOVASCULAR:S1S2 RRR, no MRG RESPIRATORY: Clear to auscultation. Breath sounds equal bilaterally. No wheezes , rales, or rhonchi. GASTROINTESTINAL: Abdomen soft, non-tender, nondistended. No hepato-splenomegaly , or palpable masses. No guarding. MUSCULOSKELETAL: Extremities without clubbing, cyanosis, or edema. No joint tenderness, effusion, or edema noted. No calf tenderness. Negative Homans sign bilaterally. NEUROLOGICAL: Awake and alert. Cranial nerves II through XII intact. Motor and sensory grossly within normal limits. Normal speech. Procedures sp EGD with bleeding control on 02/16/2017 IMPRESSIONS: 1. The esophagus appeared normal 2. There was mild gastritis in the gastric antrum 3. 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 Retroflexed views revealed no abnormalities RECOMMENDATIONS: 1. Anti-reflux regimen 2. Continue PPI 3. Avoid NSAIDS Medications and IVs Current Medications Medications (Trade) Dose Ordered Sig/[place] Route Start Time Stop Time Status Last Admin (NS Flush) 2 ml UNSCH PRN IV FLUSH 02/14/17 11:00 (NS Flush) 2 ml BID IV FLUSH 02/14/17 21:00 02/15/17 08:06 (Tylenol) 650 mg Q4H PRN PO 02/14/17 11:00 (Zofran Inj) 4 mg Q6H PRN IVP 02/14/17 11:00 (Narcan Inj) 0.4 mg UNSCH PRN IV PUSH 02/14/17 11:00 (Mariaa-Colace) 1 tab BID PO 02/14/17 21:00 02/14/17 20:57 (Milk Of Magnesia Liq) 30 ml Q12H PRN PO 02/14/17 11:00 (Senokot) 17.2 mg Q12H PRN PO 02/14/17 11:00 (Dulcolax Supp) 10 mg DAILY PRN RECTAL 02/14/17 11:00 (Lactulose Liq) 30 ml DAILY PRN PO 02/14/17 11:00 (D50w (Vial) Inj) 50 ml UNSCH PRN IV PUSH 02/14/17 11:00 (Glucagon Inj) 1 mg UNSCH PRN OTHER 02/14/17 11:00 (NovoLOG SUPPLEMENTAL SCALE) 1 ACHS SLIDING SCALE SQ 02/14/17 12:00 02/15/17 08:06 (Norvasc) 5 mg DAILY PO 02/15/17 09:00 02/15/17 08:06 (Coreg) 12.5 mg BID PO 02/14/17 21:00 02/15/17 08:06 (Apresoline) 100 mg TID PO 02/14/17 13:00 02/15/17 14:39 (Ismo) 20 mg BID@,14 PO 02/14/17 14:00 02/15/17 14:39 (Protonix Inj) 40 mg Q24H IV PUSH 02/14/17 12:00 02/14/17 12:13 (Neurontin) 300 mg BID PO 02/14/17 21:00 02/15/17 08:06 Miscellaneous Information ALL NURSING DEPARTME... UNSCH PRN .XX 02/15/17 13:26 02/16/17 13:25 Urinary Catheter: No Vascular Central Line Catheter: No A/P Problem List: (1) GI bleed ICD Code: K92.2 - Gastrointestinal hemorrhage, unspecified Plan: 51-year-old male with a past medical history significant for hypertension , diabetes, CHF and history of GI AVM status post cautery presents with abdominal pain and chest pain since last night. The patient was found to be anemic and Hemoccult-positive in the ED. He also has elevated creatinine and a new transaminitis. The patient was Hemoccult positive in emergency department. The patient was admitted to the medical floor. The patient status post fusion of 2 units of packed red blood cells. Continue to monitor CBC to trend H&H. Patient started on Protonix IV, continue. 02/16 the patient is status post EGD findings of angiodysplastic lesion with bleeding found in the first part of the duodenum which has been treated with IV contrast plasma coagulation applied to the site. Continue PPI and avoid NSAIDs. Hemoglobin has been trending slowly down and it is now 7.2. I will transfuse 1 unit of packed red blood cells blood: Hemoglobin of more than 8. (2) Anemia ICD Code: D64.9 - Anemia Status: Acute Plan: Acute on chronic anemia. Likely secondary to GI bleed. Transfuse as needed for hemoglobin less than 7, symptomatic anemia or hemoglobin less than 8 if patient is actively bleeding. Continue hemoglobin more than 9. 02/16 will transfuse 1 unit of packed blood cells today. Follow-up H&H post transfusional and monitor H&H. (3) LAURA (acute kidney injury) ICD Code: N17.9 - LAURA (acute kidney injury) Status: Acute Plan: LAURA on CKD stage III. Baseline creatinine 1.6. Creatinine on admission 2.04, trending down to 1.94. Suspect prerenal azotemia, continue to monitor BUN/creatinine. 02/16 Creatinine slightly worsened. Continue IV fluids for now. (4) CKD (chronic kidney disease), stage III ICD Code: N18.3 - Chronic kidney disease, stage 3 (moderate) Status: Acute Plan: As above (5) Diastolic heart failure ICD Code: I50.30 - Unspecified diastolic (congestive) heart failure Plan: Upon review of records the patient had an echocardiogram on date which at that time showed normal systolic ejection fraction with mild LVH and a grade 1 diastolic dysfunction. Caution with IV fluids Monitor for signs of volume overload BNP 123 (6) Hypokalemia ICD Code: E87.6 - Hypokalemia Status: Resolved Plan: Replace orally and continue to monitor. Likely secondary to poor oral intake. 02/16 levels normal now. Continue to monitor BMP. (7) Diarrhea ICD Code: R19.7 - Diarrhea, unspecified Status: Resolved Plan: Patient with one episode 2 nights ago. Diarrhea is now resolved. diet as per GI (8) Transaminitis ICD Code: R74.0 - Nonspecific elevation of levels of transaminase and lactic acid dehydrogenase [LDH] Plan: Patient with increased AST/ALT and alkaline phosphatase. LFTs trending down. GI consulted. VÍCTOR, AMA, ASMA - Iron, Fe - alpha antitrypsin, ceruloplasmin - hepatitis panel pending -Liver ultrasound shows a normal examination. - Iron studies consistent with iron deficiency anemia. The patient the patient is to receive blood today. (9) HTN (hypertension) ICD Code: I10 - Essential (primary) hypertension Status: Acute Plan: Continue home antihypertensive medications. Vital signs seems to be stable. (10) DM (diabetes mellitus) ICD Code: E11.9 - Type 2 diabetes mellitus without complications Status: Acute Plan: Hemoglobin A1c is 9.4, diabetes is uncontrolled. Continue SSI with insulin NovoLog and continue to monitor Accu-Cheks. Sugar seems to be very elevated and uncontrolled in the 200s. I will start the patient on some insulin Levemir. (11) Diabetic neuropathy ICD Code: E11.40 - Type 2 diabetes mellitus with diabetic neuropathy, unspecified Plan: continue gabapentin, seems to be stable. (12) Chest pain ICD Code: R07.9 - Chest pain, unspecified Plan: troponin negative x2. Will consider nuclear stress test once patient and hemoglobin stable. I will order a nuclear stress test for tomorrow after the patient is transfused. Assessment and Plan DVT Prophylaxis: SCd's, no chemoprophylaxis given GI bleed. GI prophylaxis: On PPI. Discharge Planning Continue to monitor in the medical floor. Patient to receive 1 unit of packed red blood cells and a nuclear stress test in a.m. Problem Qualifiers (1) Diastolic heart failure: Qualified Codes: I50.32 - Chronic diastolic (congestive) heart failure (2) HTN (hypertension): Qualified Codes: I10 - Essential (primary) hypertension (3) DM (diabetes mellitus): Qualified Codes: E11.42 - Type 2 diabetes mellitus with diabetic polyneuropathy ; Z79.4 - superintendent [employer] (current) use of insulin Edy More MD Feb 15, 2017 15:39
[2017-02-15] MEDS: PANTOPRAZOLE SODIUM 40 MG VIAL IV PUSH SCH (15:40)
[2017-02-15 16:00] VITALS: BP 133/67; PULSE 66; RESP 16; TEMP 96.7; O2SAT 93
[2017-02-15 16:46] LABS: HEMOGLOBIN A1a 1.2 %; HEMOGLOBIN A1b 0.8 %; HEMOGLOBIN Ao 79.9 %; HEMOGLOBIN F 1.3 %; HEMOGLOBIN LA1C 2.1 %; HEMOGLOBIN P3 4.5 %
[2017-02-15 20:00] VITALS: BP 130/63; PULSE 76; RESP 22; TEMP 97.4; O2SAT 98
[2017-02-15 20:24] VITALS: PULSE 74
[2017-02-16] VITALS (9 sets, daily range): BP systolic 127–160; BP diastolic 63–86; PULSE 68–76; RESP 16–20; TEMP 97.6–98.8; O2SAT 92–99
[2017-02-16] MEDS: ISOSORBIDE MONONITRATE 20 MG TAB PO SCH ×2 (06:15→14:39)
[2017-02-16] MEDS: GABAPENTIN 300 MG CAP PO SCH ×2 (08:37→19:58)
[2017-02-16] MEDS: INSULIN ASPART SUPPLEMENTAL SCALE SQ SCH ×4 (08:37→22:10)
[2017-02-16] MEDS: hydrALAZINE HCL 100 MG TAB PO SCH ×3 (08:37→18:19)
[2017-02-16] MEDS: amLODIPine BESYLATE 5 MG TAB PO SCH (08:37)
[2017-02-16] MEDS: CARVEDILOL 12.5 MG TAB PO SCH ×2 (08:37→19:58)
[2017-02-16] MEDS: DOCUSATE SODIUM 50 MG/SENNA 8.6 MG TAB PO SCH ×2 (08:37→19:58)
[2017-02-16] MEDS: SODIUM CHLORIDE 0.9% FLUSH 10 ML FLUSH IV FLUSH SCH ×2 (08:38→19:57)
[2017-02-16 10:07] LABS: HEMATOCRIT 24.2 % (39.0-51.0); MEAN CELL VOLUME 65.6 FL (80.0-100.0); MEAN CORPUSCULAR HEMOGLOBIN 19.5 PG (27.0-34.0); PLATELET COUNT 376 TH/MM3 (150-450); RED CELL DISTRIBUTION WIDTH 22.1 % (11.6-17.2); REVIEW FLAG FINAL; WHITE BLOOD COUNT 8.1 TH/MM3 (4.0-11.0)
[2017-02-16 10:10] LABS: MEAN CORPUSCULAR HGB CONC 29.7 % (32.0-36.0)
[2017-02-16 10:34] LABS: BICARBONATE 28.6 MEQ/L (21.0-32.0); POTASSIUM 3.7 MEQ/L (3.5-5.1)
[2017-02-16] MEDS ORDERED: ACETAMINOPHEN 325 MG TAB PO PRN (12:15)
[2017-02-16] MEDS ORDERED: FUROSEMIDE 20 MG/2 ML VIAL IV PUSH ONE (12:15)
[2017-02-16] MEDS ORDERED: diphenhydrAMINE HCL 25 MG CAP PO PRN (12:15)
[2017-02-16] MEDS ORDERED: SODIUM CHLOR 0.9% 250 ML INJ 250 ML IV ONE (12:15)
--- NOTE | 2017-02-16 13:36 | HHI.GIFU ---
Subjective Remarks Pt resting in bed comfortably. Denies N/N/abdominal pain. Reports good appetite. Has not had a BM today, does not feel like he needs to have one at this time. Reports increased energy level, was able to take a shower today. (Meaghan Rivera) Objective Vitals I&O Vital Signs Date Time Temp Pulse Resp B/P (MAP) Pulse Ox O2 Delivery O2 Flow Rate FiO2 02/16/17 12:00 97.6 70 18 148/74 (98) 99 02/16/17 11:43 21 02/16/17 08:00 98.7 71 18 143/71 (95) 93 02/16/17 04:00 98.1 76 20 156/81 (106) 96 02/16/17 00:40 92 Nasal Cannula 02/16/17 00:00 98.8 75 20 127/63 (84) 96 02/15/17 20:24 74 02/15/17 20:00 97.4 76 22 130/63 (85) 98 02/15/17 16:00 96.7 66 16 133/67 (89) 93 02/15/17 13:42 76 18 122/66 (84) 96 02/15/17 13:39 75 18 115/61 (79) 97 02/15/17 13:29 98.7 73 18 111/55 (73) 97 I/O 02/15/17 02/15/17 02/15/17 02/16/17 02/16/17 02/16/17 07:00 15:00 23:00 07:00 15:00 23:00 Intake Total 240 ml 600 ml 720 ml 240 ml Output Total 300 ml Balance -60 ml 600 ml 720 ml 240 ml Intake Oral 240 ml 720 ml 240 ml Other 600 ml Output Urine Total 300 ml # Voids 3 2 # Bowel Movements 2 0 Laboratory Laboratory Tests Test 02/16/17 09:45 White Blood Count 8.1 Red Blood Count 3.70 Hemoglobin 7.2 Hematocrit 24.2 Mean Corpuscular Volume 65.6 Mean Corpuscular Hemoglobin 19.5 Mean Corpuscular Hemoglobin Concent 29.7 Red Cell Distribution Width 22.1 Platelet Count 376 Mean Platelet Volume 8.5 Blood Urea Nitrogen 17 Creatinine 2.13 Random Glucose 227 Calcium Level 8.2 Sodium Level 136 Potassium Level 3.7 Chloride Level 102 Carbon Dioxide Level 28.6 Anion Gap 5 Estimat Glomerular Filtration Rate 40 Imaging Last Impressions Chest X-Ray 02/14/17 0854 Signed Impressions: Service Date/Time: Tuesday, February 14, 2017 09:11 - CONCLUSION: Trace bibasilar atelectasis. Bernardo Chauhan MD Liver Ultrasound 02/14/17 0000 Signed Impressions: Service Date/Time: Tuesday, February 14, 2017 15:25 - CONCLUSION: Normal examination. Quentin Galloway MD Physical Exam HEENT: Normocephalic; atraumatic; no jaundice. CHEST: CTA CARDIAC: RRR. ABDOMEN: Soft, nondistended, nontender; no hepatosplenomegaly; bowel sounds are present in all four quadrants. EXTREMITIES: No clubbing, cyanosis, or edema. SKIN: Normal; no rash; no jaundice. SPRING INSPECTOR: No focal deficits; alert and oriented times three. (Meaghan Rivera) Assessment and Plan Plan - Acute on chronic anemia- no obvious gi bleed. He was found to have severe anemia of H&H of 6.6/23.3, his baseline is 8.5-9.0. Hemoccult positive in the ED. 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 He had colonoscopy during that time with suboptimal prep. EGD (02/15/17)---> The esophagus appeared normal. There was mild gastritis in the gastric antrum. angiodysplastic lesion with bleeding was found in the 1st part of the duodenum; Argon plasma coagulation was applied to the site with complete hemostasis achieve, Retroflexed views revealed no abnormalities. Colonoscopy (02/15/17) ---> A small sessile polyp was found in the rectum; biopsy was performed using cold forceps. Retroflexed views revealed medium internal hemorrhoids. H/H stable 7.2/24.2. S/P 2 U PRBC . PPI switched from IV push to PO daily. - Transaminitis , this is new. Denies alcohol intake, no previous hx of liver dz. States he has been taking one Tylenol a day for a while for neuropathy. Improving. AST-64 ALT- 83, Liver US (02/14/17)--> Normal examination. Liver: normal echotexture without focal lesion or ductal dilation. VÍCTOR negative. Hepatitis panel negative. Ferritin-7. Iron-14. TIBC 417. % Saturation 3.4. ASMA, AMA, [id number], ceruloplasmin pending. - LAURA- per attending - Diabetes mellitus, hypertension, CHF (EF 55-60% on 03/28/16) and neuropathy per attending Plan: - STU - AMA, ASMA pending - [id number], ceruloplasmin pending - Monitor HH - Transfuse as needed - Cont. PPI- Pantoprazole 40mg PO daily - Avoid NSAIDs - Repeat EGD in 1 year - Repeat Colonoscopy in 5 years - Further recommendations to follow based on results of above - Patient seen and examined by Dr. Michaels and bina and this note is written on his behalf. (Meaghan Rivera) Physician Comments Seen and examined with MEDICAL CODING MANAGER, no active bleeding. EGD/colonoscopy yesterday. Liver romero in progress. If further bleedingconsider SBFT. GI will sign off. Reconsult as needed. GI fu upon dc recommended in 02 weeks. Thanksymone (Herlinda Multani MD) Meaghan Rivera Feb 16, 2017 13:36 Herlinda Multani MD Feb 16, 2017 15:57
[2017-02-17] MEDS ORDERED: ENALAPRILAT 1.25 MG/ML VIAL IV PUSH ONE (00:15)
[2017-02-17 00:40] VITALS: BP 165/81; PULSE 85; RESP 20; TEMP 98.4; O2SAT 98
[2017-02-17 04:24] VITALS: BP 173/79; PULSE 71; RESP 20; TEMP 98.3; O2SAT 98
[2017-02-17] MEDS: ISOSORBIDE MONONITRATE 20 MG TAB PO SCH ×2 (06:31→12:35)
[2017-02-17 08:00] VITALS: BP 156/90; PULSE 77; RESP 18; TEMP 98.3; O2SAT 95
[2017-02-17] MEDS: hydrALAZINE HCL 100 MG TAB PO SCH ×2 (08:46→12:35)
[2017-02-17] MEDS: CARVEDILOL 12.5 MG TAB PO SCH (08:46)
[2017-02-17] MEDS: GABAPENTIN 300 MG CAP PO SCH (08:46)
[2017-02-17] MEDS: amLODIPine BESYLATE 5 MG TAB PO SCH (08:46)
[2017-02-17] MEDS: DOCUSATE SODIUM 50 MG/SENNA 8.6 MG TAB PO SCH (08:46)
[2017-02-17] MEDS: INSULIN ASPART SUPPLEMENTAL SCALE SQ SCH ×2 (08:47→12:35)
[2017-02-17] MEDS: SODIUM CHLORIDE 0.9% FLUSH 10 ML FLUSH IV FLUSH SCH (08:47)
[2017-02-17] MEDS ORDERED: PANTOPRAZOLE SOD 40 MG DELAYED RELEASE TAB PO SCH (09:00)
[2017-02-17 10:14] LABS: AUTOMATED NEUTROPHIL # 6.1 TH/MM3 (1.8-7.7); BASOPHIL # 0.2 TH/MM3 (0-0.2); EOSINOPHIL # 0.1 TH/MM3 (0-0.4); EOSINOPHIL % 0.7 % (0.0-4.0); HEMATOCRIT 27.6 % (39.0-51.0); HEMO FLAGS DIFF FINAL; LYMPH % 12.8 % (9.0-44.0); LYMPHOCYTE # 1.1 TH/MM3 (1.0-4.8); MEAN CELL VOLUME 66.7 FL (80.0-100.0); MEAN CORPUSCULAR HEMOGLOBIN 19.5 PG (27.0-34.0); MONO % 12.5 % (0.0-8.0); PLATELET COUNT 444 TH/MM3 (150-450); RED BLOOD COUNT 4.15 MIL/MM3 (4.50-5.90); RED CELL DISTRIBUTION WIDTH 24.4 % (11.6-17.2); WHITE BLOOD COUNT 8.5 TH/MM3 (4.0-11.0)
[2017-02-17 10:16] LABS: MEAN CORPUSCULAR HGB CONC 29.2 % (32.0-36.0)
[2017-02-17 10:31] LABS: ANION GAP 6 MEQ/L (5-15); AST (GOT) 18 U/L (15-37); BICARBONATE 28.8 MEQ/L (21.0-32.0); BLOOD UREA NITROGEN 15 MG/DL (7-18); CHLORIDE 103 MEQ/L (98-107); GLOMERULAR FILTRATION RATE 47 ML/MIN (>89); MAGNESIUM 1.9 MG/DL (1.5-2.5); POTASSIUM 3.5 MEQ/L (3.5-5.1); SODIUM (NA) 138 MEQ/L (136-145)
[2017-02-17 10:40] LABS: ALKALINE PHOSPHATASE 101 U/L (45-117); ALT (GPT) 40 U/L (12-78); FREE T4 1.13 NG/DL (0.76-1.46); TOTAL BILIRUBIN ADULT 0.9 MG/DL (0.2-1.0)
[2017-02-17 12:00] VITALS: BP 169/93; PULSE 66; RESP 18; TEMP 97.9; O2SAT 97
--- NOTE | 2017-02-17 14:57 | HHI.PR ---
Subjective Remarks 51-year-old male with a past medical history significant for diabetes mellitus, hypertension, CHF (EF 55-60% on 03/28/16) and neuropathy presents with chest and abdominal pain since 10 PM last night. 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 The patient reports 1 episode of NBNB emesis and 1 of diarrhea, denies black tarry stools or bloody stools. Hemoccult positive in the ED. He describes his chest pain as central, sharp and now resolved. The patient's labs are significant for an H&H of 6.6/ 23.3 with a baseline Hemoccult of 8.5-9.0. He also has acute on chronic kidney injury with a creatinine of 2.04 (baseline 0.6) and a new transaminitis with AST /ALT 214/113. Had procedures as stated. Hemoglobin is remaining stable Has been cleared by gastroenterology Can be discharged to home Follow up with gastroenterology and primary care physician Objective Vitals Vital Signs Date Time Temp Pulse Resp B/P (MAP) Pulse Ox O2 Delivery O2 Flow Rate FiO2 02/17/17 12:00 97.9 66 18 169/93 (118) 97 02/17/17 12:00 97 02/17/17 08:00 98.3 77 18 156/90 (112) 95 02/17/17 04:24 98.3 71 20 173/79 (110) 98 02/17/17 00:40 98.4 85 20 165/81 (109) 98 02/16/17 21:38 96 02/16/17 20:16 98.3 68 18 155/75 (101) 96 02/16/17 16:00 97.9 70 16 151/86 (107) 98 I/O 02/16/17 02/16/17 02/16/17 02/17/17 02/17/17 02/17/17 07:00 15:00 23:00 07:00 15:00 23:00 Intake Total 240 ml 979 ml 580 ml Output Total 1000 ml Balance 240 ml 979 ml -420 ml Intake Oral 240 ml 620 ml 580 ml Packed Cells 359 ml Output Urine Total 1000 ml # Voids 2 6 # Bowel Movements 0 0 Result Diagram: 02/17/1792902/17/17929 Other Results Laboratory Tests Test 02/14/17 15:54 02/14/17 20:36 02/15/17 06:07 02/16/17 09:45 Total Creatine Kinase 72 U/L 71 U/L Troponin I LESS THAN 0.02 NG/ML LESS THAN 0.02 NG/ML Eyzax-3-[id number] 167 mg/dL Anti-Nuclear Antibody Screen NEG Anti-Smooth Muscle Antibody Negative Hepatitis A IgM Antibody NEGATIVE Hepatitis B Surface Antigen NEGATIVE Hepatitis B Core IgM Antibody NEGATIVE Hepatitis C Antibody NEGATIVE Hemoglobin 7.7 GM/DL 7.3 GM/DL 7.2 GM/DL Hematocrit 27.3 % 24.2 % 24.2 % Iron Level 14 MCG/DL Total Iron Binding Capacity 417 MCG/DL Percent Iron Saturation 3.4 % Ferritin 7 NG/ML White Blood Count 8.7 TH/MM3 8.1 TH/MM3 Red Blood Count 3.70 MIL/MM3 3.70 MIL/MM3 Mean Corpuscular Volume 65.5 FL 65.6 FL Mean Corpuscular Hemoglobin 19.7 PG 19.5 PG Mean Corpuscular Hemoglobin Concent 30.0 % 29.7 % Red Cell Distribution Width 22.7 % 22.1 % Platelet Count 326 TH/MM3 376 TH/MM3 Mean Platelet Volume 8.5 FL 8.5 FL Neutrophils (%) (Auto) 74.1 % Lymphocytes (%) (Auto) 13.7 % Monocytes (%) (Auto) 10.0 % Eosinophils (%) (Auto) 1.4 % Basophils (%) (Auto) 0.8 % Neutrophils # (Auto) 6.5 TH/MM3 Lymphocytes # (Auto) 1.2 TH/MM3 Monocytes # (Auto) 0.9 TH/MM3 Eosinophils # (Auto) 0.1 TH/MM3 Basophils # (Auto) 0.1 TH/MM3 CBC Comment DIFF FINAL Differential Comment Blood Urea Nitrogen 18 MG/DL 17 MG/DL Creatinine 1.94 MG/DL 2.13 MG/DL Random Glucose 168 MG/DL 227 MG/DL Total Protein 6.9 GM/DL Albumin 3.1 GM/DL Calcium Level 8.2 MG/DL 8.2 MG/DL Alkaline Phosphatase 117 U/L Aspartate Amino Transf (AST/SGOT) 64 U/L Alanine Aminotransferase (ALT/SGPT) 83 U/L Total Bilirubin 0.8 MG/DL Sodium Level 138 MEQ/L 136 MEQ/L Potassium Level 3.3 MEQ/L 3.7 MEQ/L Chloride Level 101 MEQ/L 102 MEQ/L Carbon Dioxide Level 29.7 MEQ/L 28.6 MEQ/L Anion Gap 7 MEQ/L 5 MEQ/L Estimat Glomerular Filtration Rate 44 ML/MIN 40 ML/MIN Test 02/17/17 09:30 White Blood Count 8.5 TH/MM3 Red Blood Count 4.15 MIL/MM3 Hemoglobin 8.1 GM/DL Hematocrit 27.6 % Mean Corpuscular Volume 66.7 FL Mean Corpuscular Hemoglobin 19.5 PG Mean Corpuscular Hemoglobin Concent 29.2 % Red Cell Distribution Width 24.4 % Platelet Count 444 TH/MM3 Mean Platelet Volume 8.1 FL Neutrophils (%) (Auto) 72.0 % Lymphocytes (%) (Auto) 12.8 % Monocytes (%) (Auto) 12.5 % Eosinophils (%) (Auto) 0.7 % Basophils (%) (Auto) 2.0 % Neutrophils # (Auto) 6.1 TH/MM3 Lymphocytes # (Auto) 1.1 TH/MM3 Monocytes # (Auto) 1.1 TH/MM3 Eosinophils # (Auto) 0.1 TH/MM3 Basophils # (Auto) 0.2 TH/MM3 CBC Comment DIFF FINAL Differential Comment Blood Urea Nitrogen 15 MG/DL Creatinine 1.84 MG/DL Random Glucose 201 MG/DL Total Protein 7.2 GM/DL Albumin 3.2 GM/DL Calcium Level 8.3 MG/DL Phosphorus Level 2.4 MG/DL Magnesium Level 1.9 MG/DL Alkaline Phosphatase 101 U/L Aspartate Amino Transf (AST/SGOT) 18 U/L Alanine Aminotransferase (ALT/SGPT) 40 U/L Total Bilirubin 0.9 MG/DL Sodium Level 138 MEQ/L Potassium Level 3.5 MEQ/L Chloride Level 103 MEQ/L Carbon Dioxide Level 28.8 MEQ/L Anion Gap 6 MEQ/L Estimat Glomerular Filtration Rate 47 ML/MIN Free Thyroxine 1.13 NG/DL Thyroid Stimulating Hormone 3rd Gen 2.100 uIU/ML Imaging Last Impressions Chest X-Ray 02/14/17 0854 Signed Impressions: Service Date/Time: Tuesday, February 14, 2017 09:11 - CONCLUSION: Trace bibasilar atelectasis. Bernardo Chauhan MD Liver Ultrasound 02/14/17 0000 Signed Impressions: Service Date/Time: Tuesday, February 14, 2017 15:25 - CONCLUSION: Normal examination. Quentin Galloway MD Objective Remarks GENERAL: Awake alert oriented talkative and cooperative SKIN: Warm and dry. HEAD: Atraumatic. Normocephalic. EYES: Pupils equal and round. No scleral icterus. No injection or drainage. Extraocular muscles intact ENT: No nasal bleeding or discharge. Mucous membranes pink and moist. Tongue is midline NECK: Trachea midline. No JVD. Neck is supple CARDIOVASCULAR: Regular rate and rhythm. S1 and S2 no S3-S4 no heave or thrill or rub or gallop RESPIRATORY: No accessory muscle use. Clear to auscultation. Breath sounds equal bilaterally. GASTROINTESTINAL: Abdomen soft, non-tender, nondistended. Hepatic and splenic margins not palpable. Obese MUSCULOSKELETAL: Extremities without clubbing, cyanosis, or edema. No obvious deformities. NEUROLOGICAL: Awake and alert. No obvious cranial nerve deficits. Motor grossly within normal limits. Five out of 5 muscle strength in the arms and legs. Normal speech. PSYCHIATRIC: Appropriate mood and affect; insight and judgment normal. Procedures sp EGD with bleeding control on 02/16/2017 IMPRESSIONS: 1. The esophagus appeared normal 2. There was mild gastritis in the gastric antrum 3. 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 Retroflexed views revealed no abnormalities RECOMMENDATIONS: 1. Anti-reflux regimen 2. Continue PPI 3. Avoid NSAIDS COLONOSCOPY PROCEDURE REPORT EXAM DATE: 02/15/2017 PATIENT NAME: Cortes Barillas MR #: [id number] BIRTHDATE: 1965 ENDOSCOPIST: Herlinda Multani MD ORDER #: [id number] FINE PATCHER: Alejandrina Barragan RN STATUS: inpatient INDICATIONS: The patient is a 51 yr old male here for a colonoscopy due to iron deficiency anemia PROCEDURE PERFORMED: Colonoscopy with biopsy MEDICATIONS: None and Per Anesthesia. PREP QUALITY: fair ESTIMATED BLOOD LOSS: None CONSENT: The patient understands the risks and benefits of the procedure and understands that these risks include, but are not limited to: sedation, allergic reaction, infection, perforation and/or bleeding. Alternative means of evaluation and treatment include, among others: physical exam, x-rays, and/or surgical intervention. The patient elects to proceed with this endoscopic procedure. medical equipment was checked for proper function. Hand hygiene and appropriate measures for infection prevention was taken. After the risks, benefits and alternatives of the procedure were thoroughly explained, Informed consent was verified, confirmed and timeout was successfully executed by the treatment team. A digital exam revealed internal hemorrhoids The Pentax [id number] endoscope was introduced through the anus and advanced to the cecum, which was identified by both the appendix and ileocecal valve. The instrument was then slowly withdrawn as the colon was fully examined. COLON FINDINGS: A small smooth sessile polyp was found in the rectum. A biopsy was performed using cold forceps. Retroflexed views revealed internal hemorrhoids and Retroflexed views revealed medium internal hemorrhoids The scope was then completely withdrawn from the patient and the procedure terminated. PROCEDURE WITHDRAWAL TIME:6minutes ADVERSE EVENTS: There were no complications. IMPRESSIONS: 1. A small sessile polyp was found in the rectum; biopsy was performed using cold forceps 2. Retroflexed views revealed internal hemorrhoids 3. Retroflexed views revealed medium internal hemorrhoids 4. Revealed internal hemorrhoids RECOMMENDATIONS: 1. Yearly hemoccult 2. Specimen not retrieved RECALL: Return 5 years Colonoscopy Medications and IVs Current Medications Sodium Chloride (NS Flush) 2 ml UNSCH PRN IVF FLUSH AFTER USING IV ACCESS Last administered on 02/14/17 09:06; Start 02/14/17 at 09:00; Stop 02/14/17 at 11 :07; Status DC Sodium Chloride 500 ml @ 500 mls/hr ONCE ONCE IV Last administered on 09:05; Start 02/14/17 at 09:00; Stop 02/14/17 at 09:59; Status DC Ondansetron HCl (Zofran Inj) 4 mg ONCE ONCE IV Last administered on 09:05; Start 02/14/17 at 09:00; Stop 02/14/17 at 09:01; Status DC Sodium Chloride 250 ml @ 15 mls/hr ONCE ONCE IV Last administered on 11:59; Start 02/14/17 at 09:45; Stop 02/15/17 at 02:24; Status DC Sodium Chloride (NS Flush) 2 ml UNSCH PRN IV FLUSH FLUSH AFTER USING IV ACCESS Last administered on 02/15/17 15:41; Start 02/14/17 at 11:00 Sodium Chloride (NS Flush) 2 ml BID IV FLUSH Last administered on 02/17/17 08 :47; Start 02/14/17 at 21:00 Acetaminophen (Tylenol) 650 mg Q4H PRN PO TEMP > 100.4 Last administered on 00:54; Start 02/14/17 at 11:00 Ondansetron HCl (Zofran Inj) 4 mg Q6H PRN IVP NAUSEA OR VOMITING; Start at 11:00 Naloxone HCl (Narcan Inj) 0.4 mg UNSCH PRN IV PUSH SEE LABEL COMMENTS; Start 02/14/17 at 11:00 Senna/Docusate Sodium (Mariaa-Colace) 1 tab BID PO Last administered on 08:46; Start 02/14/17 at 21:00 Magnesium Hydroxide (Milk Of Magnesia Liq) 30 ml Q12H PRN PO Mild constipation ; Start 02/14/17 at 11:00 Sennosides (Senokot) 17.2 mg Q12H PRN PO Moderate constipation Last administered on 02/16/17 16:06; Start 02/14/17 at 11:00 Bisacodyl (Dulcolax Supp) 10 mg DAILY PRN RECTAL SEVERE CONSITIPATION; Start 02/14/17 at 11:00 Lactulose (Lactulose Liq) 30 ml DAILY PRN PO SEVERE CONSITIPATION Last administered on 02/17/17 12:39; Start 02/14/17 at 11:00 Potassium Chloride (KCl) 40 meq ONCE ONCE PO Last administered on 02/14/17 11:20; Start 02/14/17 at 11:00; Stop 02/14/17 at 11:01; Status DC Potassium Chloride 100 ml @ 100 mls/hr Q1H IV Last administered on 02/14/17 13:56; Start 02/14/17 at 11:00; Stop 02/14/17 at 13:59; Status DC Dextrose (D50w (Vial) Inj) 50 ml UNSCH PRN IV PUSH HYPOGLYCEMIA-SEE COMMENTS; Start 02/14/17 at 11:00 Glucagon (Glucagon Inj) 1 mg UNSCH PRN OTHER HYPOGLYCEMIA-SEE COMMENTS; Start 02/14/17 at 11:00 Insulin Aspart (NovoLOG SUPPLEMENTAL SCALE) 1 ACHS SLIDING SCALE SQ Last administered on 02/17/17 12:35; Start 02/14/17 at 12:00 Amlodipine Besylate (Norvasc) 5 mg DAILY PO Last administered on 02/17/17 08: 46; Start 02/15/17 at 09:00 Carvedilol (Coreg) 12.5 mg BID PO Last administered on 02/17/17 08:46; Start 02/14/17 at 21:00 Gabapentin (Neurontin) 300 mg TID PO Last administered on 02/14/17 13:56; Start 02/14/17 at 13:00; Stop 02/14/17 at 15:02; Status DC Hydralazine HCl (Apresoline) 100 mg TID PO Last administered on 02/17/17 12: 35; Start 02/14/17 at 13:00 Isosorbide Mononitrate (Ismo) 20 mg BID@07,14 PO Last administered on 12:35; Start 02/14/17 at 14:00 Pantoprazole Sodium (Protonix Inj) 40 mg Q24H IV PUSH Last administered on 15:40; Start 02/14/17 at 12:00; Stop 02/16/17 at 13:35; Status DC Polyethylene Glycol/ Electrolytes (Colyte Liq) 4,000 ml ONCE ONCE PO Last administered on 02/14/17 15:57; Start 02/14/17 at 16:00; Stop 02/14/17 at 16 :01; Status DC Gabapentin (Neurontin) 300 mg BID PO Last administered on 02/17/17 08:46; Start 02/14/17 at 21:00 Potassium Chloride (KCl) 30 meq ONCE ONCE PO Last administered on 02/15/17 14:39; Start 02/15/17 at 09:30; Stop 02/15/17 at 09:39; Status DC Propofol 50 ml @ As Directed STK-MED ONCE .ROUTE ; Start 02/15/17 at 12:29; Stop 02/15/17 at 12:30; Status DC Miscellaneous Information ALL NURSING DEPARTME... UNSCH PRN .XX SEE LABEL COMMENTS; Start 02/15/17 at 13:26; Stop 02/16/17 at 13:25; Status DC Sodium Chloride 250 ml @ 15 mls/hr ONCE ONCE IV Last administered on 14:42; Start 02/16/17 at 12:15; Stop 02/17/17 at 04:54; Status DC Acetaminophen (Tylenol) 650 mg Q4H PRN PO SEE LABEL COMMENTS; Start 02/16/17 at 12:15 Diphenhydramine HCl (Benadryl) 25 mg Q4H PRN PO SEE LABEL COMMENTS Last administered on 02/16/17 16:03; Start 02/16/17 at 12:15 Furosemide (Lasix Inj) 20 mg ONCE ONCE IV PUSH Last administered on 18:19; Start 02/16/17 at 12:15; Stop 02/16/17 at 12:27; Status DC Pantoprazole Sodium (Protonix) 40 mg DAILY PO Last administered on 02/17/17 08:46; Start 02/17/17 at 09:00 Enalaprilat (Vasotec Inj) 1.25 mg ONCE ONCE IV PUSH Last administered on 02/17 00:54; Start 02/17/17 at 00:15; Stop 02/17/17 at 00:16; Status DC Lidocaine HCl (Xylocaine-Mpf 1% Inj) 10 ml STK-MED ONCE OTHER ; Start 02/15/17 at 12:00; Stop 02/17/17 at 11:47; Status DC Glycopyrrolate (Robinul Inj) 1 mg STK-MED ONCE IV PUSH ; Start 02/15/17 at 12: 00; Stop 02/17/17 at 11:47; Status DC Ephedrine Sulfate (ePHEDrine/NS 25 MG/5 ML SYR) 25 mg STK-MED ONCE IV ; Start 02/15/17 at 12:00; Stop 02/17/17 at 11:47; Status DC Propofol (Diprivan 200 Mg/20 ml Inj) 200 mg STK-MED ONCE IV ; Start 02/15/17 at 12:00; Stop 02/17/17 at 11:47; Status DC Urinary Catheter: No Vascular Central Line Catheter: No A/P Problem List: (1) GI bleed ICD Code: K92.2 - Gastrointestinal hemorrhage, unspecified Plan: 51-year-old male with a past medical history significant for hypertension , diabetes, CHF and history of GI AVM status post cautery presents with abdominal pain and chest pain since last night. The patient was found to be anemic and Hemoccult-positive in the ED. He also has elevated creatinine and a new transaminitis. The patient was Hemoccult positive in emergency department. The patient was admitted to the medical floor. The patient status post fusion of 2 units of packed red blood cells. Continue to monitor CBC to trend H&H. Patient started on Protonix IV, continue. 02/16 the patient is status post EGD findings of angiodysplastic lesion with bleeding found in the first part of the duodenum which has been treated with IV contrast plasma coagulation applied to the site. Continue PPI and avoid NSAIDs. Hemoglobin has been trending slowly down and it is now 7.2. I will transfuse 1 unit of packed red blood cells blood: Hemoglobin of more than 8. (2) Anemia ICD Code: D64.9 - Anemia Status: Acute Plan: Acute on chronic anemia. Likely secondary to GI bleed. Transfuse as needed for hemoglobin less than 7, symptomatic anemia or hemoglobin less than 8 if patient is actively bleeding. Continue hemoglobin more than 9. 02/16 will transfuse 1 unit of packed blood cells today. Follow-up H&H post transfusional and monitor H&H. Acute on chronic anemia. Likely secondary to GI bleed. Transfuse as needed for hemoglobin less than 7, symptomatic anemia or hemoglobin less than 8 if patient is actively bleeding. Continue hemoglobin more than 9. 02/16 will transfuse 1 unit of packed blood cells today. Follow-up H&H post transfusional and monitor H&H. (3) LAURA (acute kidney injury) ICD Code: N17.9 - LAURA (acute kidney injury) Status: Acute Plan: LAURA on CKD stage III. Baseline creatinine 1.6. Creatinine on admission 2.04, trending down to 1.94. Suspect prerenal azotemia, continue to monitor BUN/creatinine. 02/16 Creatinine slightly worsened. Continue IV fluids for now. (4) CKD (chronic kidney disease), stage III ICD Code: N18.3 - Chronic kidney disease, stage 3 (moderate) Status: Acute Plan: As above (5) Diastolic heart failure ICD Code: I50.30 - Unspecified diastolic (congestive) heart failure Plan: Upon review of records the patient had an echocardiogram on date which at that time showed normal systolic ejection fraction with mild LVH and a grade 1 diastolic dysfunction. Caution with IV fluids Monitor for signs of volume overload BNP 123 (6) Hypokalemia ICD Code: E87.6 - Hypokalemia Status: Resolved Plan: Replace orally and continue to monitor. Likely secondary to poor oral intake. 11/21 levels normal now. Continue to monitor BMP. (7) Diarrhea ICD Code: R19.7 - Diarrhea, unspecified Status: Resolved Plan: Patient with one episode 2 nights ago. Diarrhea is now resolved. diet as per GI (8) Transaminitis ICD Code: R74.0 - Nonspecific elevation of levels of transaminase and lactic acid dehydrogenase [LDH] Plan: Patient with increased AST/ALT and alkaline phosphatase. LFTs trending down. GI consulted. VÍCTOR, AMA, ASMA - Iron, Fe - alpha antitrypsin, ceruloplasmin - hepatitis panel pending -Liver ultrasound shows a normal examination. - Iron studies consistent with iron deficiency anemia. The patient the patient is to receive blood today. (9) HTN (hypertension) ICD Code: I10 - Essential (primary) hypertension Status: Acute Plan: Continue home antihypertensive medications. Vital signs seems to be stable. (10) DM (diabetes mellitus) ICD Code: E11.9 - Type 2 diabetes mellitus without complications Status: Acute Plan: Hemoglobin A1c is 9.4, diabetes is uncontrolled. Continue SSI with insulin NovoLog and continue to monitor Accu-Cheks. Sugar seems to be very elevated and uncontrolled in the 200s. I will start the patient on some insulin Levemir. (11) Diabetic neuropathy ICD Code: E11.40 - Type 2 diabetes mellitus with diabetic neuropathy, unspecified Plan: continue gabapentin, seems to be stable. (12) Chest pain ICD Code: R07.9 - Chest pain, unspecified Plan: troponin negative x2. Assessment and Plan (1) GI bleed ICD Code: K92.2 - Gastrointestinal hemorrhage, unspecified Plan: 51-year-old male with a past medical history significant for hypertension , diabetes, CHF and history of GI AVM status post cautery presents with abdominal pain and chest pain since last night. The patient was found to be anemic and Hemoccult-positive in the ED. He also has elevated creatinine and a new transaminitis. The patient was Hemoccult positive in emergency department. The patient was admitted to the medical floor. The patient status post fusion of 2 units of packed red blood cells. Continue to monitor CBC to trend H&H. Patient started on Protonix IV, continue. 02/16 the patient is status post EGD findings of angiodysplastic lesion with bleeding found in the first part of the duodenum which has been treated with IV contrast plasma coagulation applied to the site. Continue PPI and avoid NSAIDs. Hemoglobin has been trending slowly down and it is now 7.2. I will transfuse 1 unit of packed red blood cells blood: Hemoglobin of more than 8. (2) Anemia ICD Code: D64.9 - Anemia Status: Acute Plan: Acute on chronic anemia. Likely secondary to GI bleed. Transfuse as needed for hemoglobin less than 7, symptomatic anemia or hemoglobin less than 8 if patient is actively bleeding. Continue hemoglobin more than 9. 02/16 will transfuse 1 unit of packed blood cells today. Follow-up H&H post transfusional and monitor H&H. (3) LAURA (acute kidney injury) ICD Code: N17.9 - LAURA (acute kidney injury) Status: Acute Plan: LAURA on CKD stage III. Baseline creatinine 1.6. Creatinine on admission 2.04, trending down to 1.94. Suspect prerenal azotemia, continue to monitor BUN/creatinine. 02/16 Creatinine slightly worsened. Continue IV fluids for now. (4) CKD (chronic kidney disease), stage III ICD Code: N18.3 - Chronic kidney disease, stage 3 (moderate) Status: Acute Plan: As above (5) Diastolic heart failure ICD Code: I50.30 - Unspecified diastolic (congestive) heart failure Plan: Upon review of records the patient had an echocardiogram on date which at that time showed normal systolic ejection fraction with mild LVH and a grade 1 diastolic dysfunction. Caution with IV fluids Monitor for signs of volume overload BNP 123 (6) Hypokalemia ICD Code: E87.6 - Hypokalemia Status: Resolved Plan: Replace orally and continue to monitor. Likely secondary to poor oral intake. 02/16 levels normal now. Continue to monitor BMP. (7) Diarrhea ICD Code: R19.7 - Diarrhea, unspecified Status: Resolved Plan: Patient with one episode 2 nights ago. Diarrhea is now resolved. diet as per GI (8) Transaminitis ICD Code: R74.0 - Nonspecific elevation of levels of transaminase and lactic acid dehydrogenase [LDH] Plan: Patient with increased AST/ALT and alkaline phosphatase. LFTs trending down. GI consulted. VÍCTOR, AMA, ASMA - Iron, Fe - alpha antitrypsin, ceruloplasmin - hepatitis panel pending -Liver ultrasound shows a normal examination. - Iron studies consistent with iron deficiency anemia. The patient the patient is to receive blood today. (9) HTN (hypertension) ICD Code: I10 - Essential (primary) hypertension Status: Acute Plan: Continue home antihypertensive medications. Vital signs seems to be stable. (10) DM (diabetes mellitus) ICD Code: E11.9 - Type 2 diabetes mellitus without complications Status: Acute Plan: Hemoglobin A1c is 9.4, diabetes is uncontrolled. Continue SSI with insulin NovoLog and continue to monitor Accu-Cheks. Sugar seems to be very elevated and uncontrolled in the 200s. I will start the patient on some insulin Levemir. (11) Diabetic neuropathy ICD Code: E11.40 - Type 2 diabetes mellitus with diabetic neuropathy, unspecified Plan: continue gabapentin, seems to be stable. Assessment and Plan DVT Prophylaxis: SCd's, no chemoprophylaxis given GI bleed. GI prophylaxis: On PPI. Discharge Planning Continue to monitor in the medical floor. Patient to receive 1 unit of packed red blood cells Discharge Planning DC TO HOME FOLLOW UP WITH GI Problem Qualifiers (1) Diastolic heart failure: Qualified Codes: I50.32 - Chronic diastolic (congestive) heart failure (2) HTN (hypertension): Qualified Codes: I10 - Essential (primary) hypertension (3) DM (diabetes mellitus): Qualified Codes: E11.42 - Type 2 diabetes mellitus with diabetic polyneuropathy ; Z79.4 - longterm (current) use of insulin Derek Davidson DO Feb 17, 2017 14:57
[2017-02-17] MEDS ORDERED: GABA300C5 PO (15:00)
[2017-02-17] MEDS ORDERED: ISOS20TA PO (15:00)
[2017-02-17] MEDS ORDERED: HYDR-3801 PO (15:00)
[2017-02-17] MEDS ORDERED: PANT40TA3 PO (15:00)
[2017-02-17] MEDS ORDERED: CARV12.5 PO (15:00)
[2017-02-17] MEDS ORDERED: AMLO5 PO (15:00)
--- NOTE | 2017-02-17 15:04 | HHI.DS ---
Discharge Summary Admission Date Feb 14, 2017 at 10:36 Discharge Date: Feb 17, 2017 Admitting Diagnosis anemia, chest pain, GI bleed (1) GI bleed ICD Code: K92.2 - Gastrointestinal hemorrhage, unspecified (2) Anemia ICD Code: D64.9 - Anemia Diagnosis: Principal Status: Acute (3) LAURA (acute kidney injury) ICD Code: N17.9 - LAURA (acute kidney injury) Diagnosis: Principal Status: Acute (4) CKD (chronic kidney disease), stage III ICD Code: N18.3 - Chronic kidney disease, stage 3 (moderate) Diagnosis: Secondary Status: Acute (5) Diastolic heart failure ICD Code: I50.30 - Unspecified diastolic (congestive) heart failure Diagnosis: Secondary (6) Hypokalemia ICD Code: E87.6 - Hypokalemia Diagnosis: Secondary Status: Resolved (7) Diarrhea ICD Code: R19.7 - Diarrhea, unspecified Diagnosis: Secondary Status: Resolved (8) Transaminitis ICD Code: R74.0 - Nonspecific elevation of levels of transaminase and lactic acid dehydrogenase [LDH] Diagnosis: Secondary (9) HTN (hypertension) ICD Code: I10 - Essential (primary) hypertension Diagnosis: Secondary Status: Acute (10) DM (diabetes mellitus) ICD Code: E11.9 - Type 2 diabetes mellitus without complications Diagnosis: Secondary Status: Acute (11) Diabetic neuropathy ICD Code: E11.40 - Type 2 diabetes mellitus with diabetic neuropathy, unspecified Diagnosis: Secondary Procedures sp EGD with bleeding control on 02/16/2017 IMPRESSIONS: 1. The esophagus appeared normal 2. There was mild gastritis in the gastric antrum 3. 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 Retroflexed views revealed no abnormalities RECOMMENDATIONS: 1. Anti-reflux regimen 2. Continue PPI 3. Avoid NSAIDS COLONOSCOPY PROCEDURE REPORT EXAM DATE: 02/15/2017 PATIENT NAME: Cortes Barillas MR #: [id number] BIRTHDATE: 1965 ENDOSCOPIST: Herlinda Multani MD ORDER #: [id number] RADIO ELECTRICIAN: Alejandrina Barragan RN STATUS: inpatient INDICATIONS: The patient is a 51 yr old male here for a colonoscopy due to iron deficiency anemia PROCEDURE PERFORMED: Colonoscopy with biopsy MEDICATIONS: None and Per Anesthesia. PREP QUALITY: fair ESTIMATED BLOOD LOSS: None CONSENT: The patient understands the risks and benefits of the procedure and understands that these risks include, but are not limited to: sedation, allergic reaction, infection, perforation and/or bleeding. Alternative means of evaluation and treatment include, among others: physical exam, x-rays, and/or surgical intervention. The patient elects to proceed with this endoscopic procedure. medical equipment was checked for proper function. Hand hygiene and appropriate measures for infection prevention was taken. After the risks, benefits and alternatives of the procedure were thoroughly explained, Informed consent was verified, confirmed and timeout was successfully executed by the treatment team. A digital exam revealed internal hemorrhoids The Pentax [id number] endoscope was introduced through the anus and advanced to the cecum, which was identified by both the appendix and ileocecal valve. The instrument was then slowly withdrawn as the colon was fully examined. COLON FINDINGS: A small smooth sessile polyp was found in the rectum. A biopsy was performed using cold forceps. Retroflexed views revealed internal hemorrhoids and Retroflexed views revealed medium internal hemorrhoids The scope was then completely withdrawn from the patient and the procedure terminated. PROCEDURE WITHDRAWAL TIME:6minutes ADVERSE EVENTS: There were no complications. IMPRESSIONS: 1. A small sessile polyp was found in the rectum; biopsy was performed using cold forceps 2. Retroflexed views revealed internal hemorrhoids 3. Retroflexed views revealed medium internal hemorrhoids 4. Revealed internal hemorrhoids RECOMMENDATIONS: 1. Yearly hemoccult 2. Specimen not retrieved RECALL: Return 5 years Colonoscopy Brief History - From Admission 51-year-old male with a past medical history significant for diabetes mellitus, hypertension, CHF (EF 55-60% on 03/28/16) and neuropathy presents with chest and abdominal pain since 10 PM last night. 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 The patient reports 1 episode of NBNB emesis and 1 of diarrhea, denies black tarry stools or bloody stools. Hemoccult positive in the ED. He describes his chest pain as central, sharp and now resolved. The patient's labs are significant for an H&H of 6.6/ 23.3 with a baseline Hemoccult of 8.5-9.0. He also has acute on chronic kidney injury with a creatinine of 2.04 (baseline 0.6) and a new transaminitis with AST /ALT 214/113. CBC/BMP: 02/17/17 0930 02/17/17 0930 Significant Findings Laboratory Tests Test 02/14/17 15:54 02/14/17 20:36 02/15/17 06:07 02/16/17 09:45 Troponin I LESS THAN 0.02 NG/ML LESS THAN 0.02 NG/ML Hemoglobin 7.7 GM/DL (13.0-17.0) 7.3 GM/DL (13.0-17.0) 7.2 GM/DL (13.0-17.0) Hematocrit 27.3 % (39.0-51.0) 24.2 % (39.0-51.0) 24.2 % (39.0-51.0) Iron Level 14 MCG/DL (65-175) Percent Iron Saturation 3.4 % (20-50) Ferritin 7 NG/ML (26-388) Red Blood Count 3.70 MIL/MM3 (4.50-5.90) 3.70 MIL/MM3 (4.50-5.90) Mean Corpuscular Volume 65.5 FL (80.0-100.0) 65.6 FL (80.0-100.0) Mean Corpuscular Hemoglobin 19.7 PG (27.0-34.0) 19.5 PG (27.0-34.0) Mean Corpuscular Hemoglobin Concent 30.0 % (32.0-36.0) 29.7 % (32.0-36.0) Red Cell Distribution Width 22.7 % (11.6-17.2) 22.1 % (11.6-17.2) Neutrophils (%) (Auto) 74.1 % (16.0-70.0) Monocytes (%) (Auto) 10.0 % (0.0-8.0) Creatinine 1.94 MG/DL (0.60-1.30) 2.13 MG/DL (0.60-1.30) Random Glucose 168 MG/DL (74-106) 227 MG/DL (74-106) Albumin 3.1 GM/DL (3.4-5.0) Calcium Level 8.2 MG/DL (8.5-10.1) 8.2 MG/DL (8.5-10.1) Aspartate Amino Transf (AST/SGOT) 64 U/L (15-37) Alanine Aminotransferase (ALT/SGPT) 83 U/L (12-78) Potassium Level 3.3 MEQ/L (3.5-5.1) Estimat Glomerular Filtration Rate 44 ML/MIN (>89) 40 ML/MIN (>89) Test 02/17/17 09:30 Red Blood Count 4.15 MIL/MM3 (4.50-5.90) Hemoglobin 8.1 GM/DL (13.0-17.0) Hematocrit 27.6 % (39.0-51.0) Mean Corpuscular Volume 66.7 FL (80.0-100.0) Mean Corpuscular Hemoglobin 19.5 PG (27.0-34.0) Mean Corpuscular Hemoglobin Concent 29.2 % (32.0-36.0) Red Cell Distribution Width 24.4 % (11.6-17.2) Neutrophils (%) (Auto) 72.0 % (16.0-70.0) Monocytes (%) (Auto) 12.5 % (0.0-8.0) Monocytes # (Auto) 1.1 TH/MM3 (0-0.9) Creatinine 1.84 MG/DL (0.60-1.30) Random Glucose 201 MG/DL (74-106) Albumin 3.2 GM/DL (3.4-5.0) Calcium Level 8.3 MG/DL (8.5-10.1) Phosphorus Level 2.4 MG/DL (2.5-4.9) Estimat Glomerular Filtration Rate 47 ML/MIN (>89) Imaging Last Impressions Chest X-Ray 02/14/17 0854 Signed Impressions: Service Date/Time: Tuesday, February 14, 2017 09:11 - CONCLUSION: Trace bibasilar atelectasis. Bernardo Chauhan MD Liver Ultrasound 02/14/17 0000 Signed Impressions: Service Date/Time: Tuesday, February 14, 2017 15:25 - CONCLUSION: Normal examination. Quentin Galloway MD PE at Discharge GENERAL: Awake alert oriented talkative and cooperative SKIN: Warm and dry. HEAD: Atraumatic. Normocephalic. EYES: Pupils equal and round. No scleral icterus. No injection or drainage. Extraocular muscles intact ENT: No nasal bleeding or discharge. Mucous membranes pink and moist. Tongue is midline NECK: Trachea midline. No JVD. Neck is supple CARDIOVASCULAR: Regular rate and rhythm. S1 and S2 no S3-S4 no heave or thrill or rub or gallop RESPIRATORY: No accessory muscle use. Clear to auscultation. Breath sounds equal bilaterally. GASTROINTESTINAL: Abdomen soft, non-tender, nondistended. Hepatic and splenic margins not palpable. Obese MUSCULOSKELETAL: Extremities without clubbing, cyanosis, or edema. No obvious deformities. NEUROLOGICAL: Awake and alert. No obvious cranial nerve deficits. Motor grossly within normal limits. Five out of 5 muscle strength in the arms and legs. Normal speech. PSYCHIATRIC: Appropriate mood and affect; insight and judgment normal. Hospital Course 51-year-old male with a past medical history significant for diabetes mellitus, hypertension, CHF (EF 55-60% on 03/28/16) and neuropathy presents with chest and abdominal pain since 10 PM last night. 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 The patient reports 1 episode of NBNB emesis and 1 of diarrhea, denies black tarry stools or bloody stools. Hemoccult positive in the ED. He describes his chest pain as central, sharp and now resolved. The patient's labs are significant for an H&H of 6.6/ 23.3 with a baseline Hemoccult of 8.5-9.0. He also has acute on chronic kidney injury with a creatinine of 2.04 (baseline 0.6) and a new transaminitis with AST /ALT 214/113. Had procedures as stated. Hemoglobin is remaining stable Has been cleared by gastroenterology Can be discharged to home Follow up with gastroenterology and primary care physician Pt Condition on Discharge: Good Discharge Disposition: Discharge Home Discharge Time: <= 30 minutes Discharge Instructions DIET: Follow Instructions for: Heart Healthy Diet, Diabetic Diet Activities you can perform: Regular-No Restrictions Follow up Referrals: Gastroenterology - 2 Weeks with Herlinda Multani MD PCP Follow-up - 1 Week New Medications: Pantoprazole (Pantoprazole) 40 Mg Tab 40 MG PO DAILY for Heartburn Management, #30 TAB Continued Medications: Amlodipine (Norvasc) 5 Mg Tab 5 MG PO DAILY for Blood Pressure Management, #30 TAB (This prescription has been renewed) Carvedilol (Coreg) 12.5 Mg Tab 12.5 MG PO BID for Blood Pressure Management, #60 TAB (This prescription has been renewed) Gabapentin (Gabapentin) 300 Mg Cap 300 MG PO TID for neuropathy, #90 CAP 0 Refills (This prescription has been renewed) Hydralazine (Hydralazine) 100 Mg Tab 100 MG PO TID for Blood Pressure Management, #90 TAB 0 Refills (This prescription has been renewed) Take with meals Isosorbide Mononitrate (Isosorbide Mononitrate) 20 Mg Tab 20 MG PO BID@07,14 for Blood Pressure Management, #60 TAB (This prescription has been renewed) Derek Davidson DO Feb 17, 2017 15:04
[2017-02-17] MEDS ORDERED: FERR200T PO (15:18)
[2017-02-17] MEDS ORDERED: COLA100C5 PO (15:18)
[2017-02-22 23:51] LABS: MITOCHONDRIAL ABS LESS THAN 20.0 U (<=20.0)
== END 2017-02-17 15:41 | disposition home or self-care (01) | DRG 378 ==
LOC: NEPE 08:21 → NEDA 10:36 → N07B 12:41
PROVIDERS: ADMIT Hospitalist; ATTEND Hospitalist
PROC: 30233N1 Transfusion of Nonautologous Red Blood Cells into Peripheral Vein, Percutaneous Approach (ICD-10-PCS; principal; 2017-02-14)
PROC: 0DBP8ZX Excision of Rectum, Via Natural or Artificial Opening Endoscopic, Diagnostic (ICD-10-PCS; 2017-02-15)
PROC: 0W3P8ZZ Control Bleeding in Gastrointestinal Tract, Via Natural or Artificial Opening Endoscopic (ICD-10-PCS; 2017-02-15 12:32)
DX: K31.811 Angiodysplasia of stomach and duodenum with bleeding (principal); N17.9 Acute kidney failure, unspecified; E11.22 Type 2 diabetes mellitus with diabetic chronic kidney disease; I13.0 Hypertensive heart and chronic kidney disease with heart failure and stage 1 through stage 4 chronic kidney disease, or unspecified chronic kidney disease; I50.32 Chronic diastolic (congestive) heart failure; N18.3 Chronic kidney disease, stage 3 (moderate); E11.40 Type 2 diabetes mellitus with diabetic neuropathy, unspecified; D50.9 Iron deficiency anemia, unspecified; R07.9 Chest pain, unspecified; E87.6 Hypokalemia; K64.8 Other hemorrhoids; K29.70 Gastritis, unspecified, without bleeding; R19.7 Diarrhea, unspecified; K62.1 Rectal polyp; E11.65 Type 2 diabetes mellitus with hyperglycemia
CPT/HCPCS: 36430; 71010; 76705; 80048; 80053; 80074; 82103; 82390; 82550; 82728; 82948; 83036; 83520; 83540; 83550; 83690; 83735; 83880; 84100; 84439; 84443; 84484; 85014; 85018; 85025; 85027; 85610; 85730; 86038; 86255; 86850; 86900; 86901; 86920; 93005; 96361; 96374; C9113; J1815; J1940; J2405; J3480; J7040; J7050; P9016

== ENCOUNTER 2018-03-31 11:49 | Inpatient (IN) ==
--- NOTE | 2018-03-31 14:11 | ED ---
HPI General Chief complaint: Weakness Stated complaint: Weakness Complaint Time Seen by Provider: 03/31/18 13:37 Source: patient and family Mode of arrival: ambulatory Limitations: no limitations History of Present Illness HPI Narrative: Patient is a 52-year-old male presenting to the emergency department for evaluation of weakness and fatigue. Patient states is been ongoing for several days getting worse today at around 1030 this morning. He became short of breath, dizzy while he was fishing and had to sit in his car for a while. Patient reports that the shortness of breath is worse when he exerts himself. He reports abdominal bloating but no pain. He denies any nausea, vomiting, fever, chills, weight gain, peripheral edema, chest pain. Symptom onset was gradual, symptoms are moderate. is at bedside and is cooperating his symptoms as patient appears to be downplaying them. Patient has a history significant for hypertension, type 2 diabetes which is controlled by diet, GI bleed, CHF per medical records, neuropathy. Patient denies any sleep disturbance which would contribute to his fatigue. MD Complaint: Reports generalized weakness Onset (ago): day(s) Duration: constant Location: Reports generalized Migration: Reports none Severity: moderate Context: Reports history of similar Associated symptoms: Reports shortness of breath and syncope Related Data Allergies Allergy/AdvReac Type Severity Reaction Status Date / Time No Known Allergies Allergy Unknown Uncoded 02/14/17 10:54 Review of Systems ROS: all other systems reviewed are negative PMFSH History History Provided By: Patient, Family Member and Medical Record Medical History Medical History CHF (congestive heart failure) (Acute) GI bleed (Acute) Hypertension (Acute) Neuropathy (Acute) Type 2 diabetes mellitus (Acute) Surgical History Surgical History No history of previous surgery (Acute) Social History Social History Substance History: No History of Abuse Second Hand Smoke Exposure: No Smoking Status: Never smoker How Often Do You Have a Drink Containing Alcohol: Never Recent Travel in [place] within the Last 8 Weeks: No Recent Out of Country Travel within the Last 8 Weeks: No Exam Narrative Exam Narrative: GENERAL: Well-developed, well-nourished, alert -[place] male. Appears fatigued, in no acute distress. SKIN: Focused skin assessment warm/dry. HEAD: Atraumatic. Normocephalic. EYES: Pupils equal and round. No scleral icterus. No injection or drainage. ENT: No nasal bleeding or discharge. Mucous membranes pink and moist. NECK: Trachea midline. No JVD. CARDIOVASCULAR: Regular rate and rhythm. No murmur appreciated. RESPIRATORY: No accessory muscle use. Clear to auscultation. Breath sounds equal bilaterally. GASTROINTESTINAL: Abdomen soft, non-tender, nondistended. Hepatic and splenic margins not palpable. MUSCULOSKELETAL: No obvious deformities. No clubbing. No cyanosis. No edema. NEUROLOGICAL: Awake and alert. No obvious cranial nerve deficits. Motor grossly within normal limits. Normal speech. PSYCHIATRIC: Appropriate mood and affect; insight and judgment normal. Course Initial Documented Vital Signs Temperature 98.6 F 03/31/18 12:00 Pulse Rate 70 03/31/18 12:00 Respiratory Rate 18 03/31/18 12:00 Blood Pressure 130/73 03/31/18 12:00 Pulse Oximetry 98 03/31/18 12:00 Last Documented Vital Signs Temperature 98.6 F 03/31/18 12:00 Pulse Rate 65 03/31/18 14:30 Respiratory Rate 15 03/31/18 14:30 Blood Pressure 152/77 H 03/31/18 14:30 Pulse Oximetry 97 03/31/18 14:36 Medical Decision Making LISA Attestation LISA supervised visit: Yes Attestation: I, Dr. Toure, have reviewed the advance practice practitioner's documentation and am in agreement, met with the patient face to face, made the diagnosis, and the medical decision making was done by me. *My assessment and Findings: Patient is a 52-year-old male who presented with several days of generalized malaise, fatigue. He did have some chest pain that lasted approximately an hour while fishing today. He states he was not stressed nor exerting himself at that time. EKG showed some ST elevation in V2 with slight elevation in other leads. He was chest pain-free at that time. I discussed this with Dr. Green, office asst on-call, whom stated to obtain the troponin as he is chest pain-free at this time and not make it a STEMI alert. Labs reveal hemoconcentration with acute kidney injury. Hemoglobin is low but not as low as normal. This may be falsely elevated secondary to dehydration. He has been given small fluid boluses as he does have a history of CHF as well. He has been admitted to Dr. Fallon for further evaluation and management. [facility] Narrative Medical decision making narrative: Labs and imaging ordered and pending, is at bedside. IV access was established, patient was placed on gambling monitor continuous pulse oximetry. Patient's vital signs are stable currently. Stool is guaiac positive. Initial EKG interpreted by my attending physician who discussed with cardiology. Plan is to trend troponin, if elevated pt may go to energy systems laboratory director. Cardiac enzymes are negative x1 set. CBC is unremarkable hemoglobin is stable when compared to prior. Chemistry with elevated BUN and creatinine, when compared to prior this is markedly elevated. Hemoglobin may be falsely elevated due to dehydration. Patient was given cautious fluid resuscitation. CBC with 1 L bolus and maintenance fluids at 100 cc an hour. Urinalysis is unremarkable. CXR is stable with elevated right hemidiaphragm and atelectasis at the right lung base. Hospitalists paged for admit. Dr. Fallon accepted admit, orders placed for OBS Medical Screen Exam Complete: Yes Emergency Medical Condition: Yes Differential Diagnosis Differential Diagnosis: Symptomatic anemia versus metabolic abnormality versus CHF versus fatigue versus other Medical Records Medical records reviewed: Yes I reviewed the patient's medical records. Patient presented last year, he was diagnosed with GI bleed. Lab Data Result diagrams: 03/31/18 14:17 03/31/18 14:17 Lab Results 03/31/18 03/31/18 03/31/18 Range/Units 14:17 14:17 14:17 WBC 5.7 (4.0-11.0) th/mm3 RBC 3.67 L (4.50-5.90) mil/mm3 Hgb 8.1 L (13.0-17.0) gm/dL Hct 26.8 L (39.0-51.0) % MCV 73.1 L (80.0-100.0) fL MCH 22.0 L (27.0-34.0) pg MCHC 30.1 L (32.0-36.0) % RDW 16.4 (11.6-17.2) % Plt Count 242 (150-450) th/mm3 MPV 7.8 (7.0-11.0) fL Neut % (Auto) 73.1 H (16.0-70.0) % Lymph % (Auto) 14.5 (9.0-44.0) % Tate % (Auto) 10.5 H (0.0-8.0) % Eos % (Auto) 0.9 (0.0-4.0) % Baso % (Auto) 1.0 (0.0-2.0) % Neut # (Auto) 4.1 (1.8-7.7) th/mm3 Lymph # (Auto) 0.8 L (1.0-4.8) th/mm3 Tate # (Auto) 0.6 (0.0-0.9) th/mm3 Eos # (Auto) 0.0 (0.0-0.4) th/mm3 Baso # (Auto) 0.1 (0.0-0.2) th/mm3 WBC Differential . Differential Comment Auto diff final Sodium 135 L (136-145) meq/L Potassium 3.7 (3.5-5.1) meq/L Chloride 98 (98-107) meq/L Carbon Dioxide 28.5 (21.0-32.0) meq/L Anion Gap 9 (5-15) meq/L BUN 36 H (7-18) mg/dL Creatinine 2.48 H (0.60-1.30) mg/dL Estimated GFR 33 L (>89) mL/min Random Glucose 383 H (74-106) mg/dL Calcium 8.2 L (8.5-10.1) mg/dL Magnesium 2.2 (1.5-2.5) mg/dL Total Bilirubin 0.7 (0.2-1.0) mg/dL AST 17 (15-37) U/L ALT 23 (12-78) U/L Alkaline Phosphatase 97 (45-117) U/L Total Creatine Kinase 136 (39-308) U/L Troponin I Less than 0.02 L (0.02-0.05) ng/mL B-Natriuretic Peptide 65 (0-100) pg/mL Total Protein 7.4 (6.4-8.2) g/dL Albumin 3.4 (3.4-5.0) g/dL TSH 2.210 (0.358-3.740) uIU/mL Urine Color (Yellw/Straw) Urine Clarity (Clear) Urine pH (5.0-8.5) Ur Specific Sula (1.002-1.035) Urine Protein (Neg-Trace) mg/dL Urine Glucose (UA) (Negative) mg/dL Urine Ketones (Negative) mg/dL Urine Occult Blood (Negative) Urine Nitrate (Negative) Urine Bilirubin (Negative) Urine Urobilinogen (Less than 2) mg/dL Ur Leukocyte Esterase (Negative) Urine RBC (0-3) /hpf Urine WBC (0-5) /hpf Ur Squamous Epith Cells (0-5) /hpf Hyaline Casts (0-3) /lpf Urine Mucus (Occasional) /lpf Micro UA Comment Ur Microscopic Review Urine Culture Comments Blood Type Antibody Screen 03/31/18 03/31/18 Range/Units 14:17 16:00 WBC (4.0-11.0) th/mm3 RBC (4.50-5.90) mil/mm3 Hgb (13.0-17.0) gm/dL Hct (39.0-51.0) % MCV (80.0-100.0) fL MCH (27.0-34.0) pg MCHC (32.0-36.0) % RDW (11.6-17.2) % Plt Count (150-450) th/mm3 MPV (7.0-11.0) fL Neut % (Auto) (16.0-70.0) % Lymph % (Auto) (9.0-44.0) % Tate % (Auto) (0.0-8.0) % Eos % (Auto) (0.0-4.0) % Baso % (Auto) (0.0-2.0) % Neut # (Auto) (1.8-7.7) th/mm3 Lymph # (Auto) (1.0-4.8) th/mm3 Tate # (Auto) (0.0-0.9) th/mm3 Eos # (Auto) (0.0-0.4) th/mm3 Baso # (Auto) (0.0-0.2) th/mm3 WBC Differential Differential Comment Sodium (136-145) meq/L Potassium (3.5-5.1) meq/L Chloride (98-107) meq/L Carbon Dioxide (21.0-32.0) meq/L Anion Gap (5-15) meq/L BUN (7-18) mg/dL Creatinine (0.60-1.30) mg/dL Estimated GFR (>89) mL/min Random Glucose (74-106) mg/dL Calcium (8.5-10.1) mg/dL Magnesium (1.5-2.5) mg/dL Total Bilirubin (0.2-1.0) mg/dL AST (15-37) U/L ALT (12-78) U/L Alkaline Phosphatase (45-117) U/L Total Creatine Kinase (39-308) U/L Troponin I (0.02-0.05) ng/mL B-Natriuretic Peptide (0-100) pg/mL Total Protein (6.4-8.2) g/dL Albumin (3.4-5.0) g/dL TSH (0.358-3.740) uIU/mL Urine Color Yellow (Yellw/Straw) Urine Clarity Hazy H (Clear) Urine pH 5.0 (5.0-8.5) Ur Specific Sula 1.013 (1.002-1.035) Urine Protein 100 H (Neg-Trace) mg/dL Urine Glucose (UA) 500 or greater (Negative) mg/dL Urine Ketones Negative (Negative) mg/dL Urine Occult Blood Negative (Negative) Urine Nitrate Negative (Negative) Urine Bilirubin Negative (Negative) Urine Urobilinogen Less than 2 (Less than 2) mg/dL Ur Leukocyte Esterase Negative (Negative) Urine RBC Less than 1 (0-3) /hpf Urine WBC Less than 1 (0-5) /hpf Ur Squamous Epith Cells <1 (0-5) /hpf Hyaline Casts 9 (0-3) /lpf Urine Mucus Few H (Occasional) /lpf Micro UA Comment Culture not ind Ur Microscopic Review Not Reportable Urine Culture Comments Culture not ind Blood Type O Positive Antibody Screen Negative Imaging Data Radiologist's impression: Chest X-Ray 03/31/18 13:56 CONCLUSION: Stable chest x-ray with chronic elevation of the right hemidiaphragm with atelectasis at the right lung base. Discharge Plan Discharge Disposition Patient Disposition: ED Admit(ED Internal Use Only) Discharge Condition Condition: Good Discharge Order Discharge Orders: ED Use Only Admit Order (Routine); Ordered 03/31/18 Ordered By: Jovana Nye Discharge Details Diagnosis: Anemia, Acute renal failure (ARF), Near syncope Physicians Team ED Provider: Guera Toure ED Midlevel Provider: Jovana Nye Primary Care Provider: NON STAFF,PROVIDER Attending Provider: Linsey Fallon Status ED Status: Admitted Observation Patient
--- NOTE | 2018-03-31 14:26 | XR ---
EXAM DATE: 03/31/2018 2:12 PM EST AGE/SEX: 52 years / Male INDICATIONS: Weakness. CLINICAL DATA: This is the patient's initial encounter. Patient reports that signs and symptoms have been present for 2 days and indicates a pain score of 0/10. MEDICAL/SURGICAL HISTORY: None. None. COMPARISON: [facility] – [place], CHEST SINGLE AP, 02/14/2017. . FINDINGS: Portable AP view of the chest demonstrates a normal-sized cardiac silhouette. There is chronic elevat ion the right hemidiaphragm with atelectasis at the right lung base. No effusion, consolidation, or p neumothorax is appreciated given the technique. Bones and soft tissues demonstrate no acute finding. CONCLUSION: Stable chest x-ray with chronic elevation of the right hemidiaphragm with atelectasis at the right francia ng base. Electronically signed by: Bernardo Hardin MD Board Certified Radiologist 03/31/2018 2:24 PM EST
[2018-03-31 14:30] LABS: Baso # (Auto) 0.1 th/mm3 (0.0-0.2); Eos % (Auto) 0.9 % (0.0-4.0); Hematocrit 26.8 % (39.0-51.0); Hemoglobin 8.1 gm/dL (13.0-17.0); Lymph # (Auto) 0.8 th/mm3 (1.0-4.8); Lymph % (Auto) 14.5 % (9.0-44.0); Mean Corpuscular Volume 73.1 fL (80.0-100.0); Mean Platelet Volume 7.8 fL (7.0-11.0); Mono # (Auto) 0.6 th/mm3 (0.0-0.9); Mono % (Auto) 10.5 % (0.0-8.0); Neut # (Auto) 4.1 th/mm3 (1.8-7.7); Neut % (Auto) 73.1 % (16.0-70.0); Platelet Count 242 th/mm3 (150-450); Red Blood Count 3.67 mil/mm3 (4.50-5.90); Red Cell Distribution Width 16.4 % (11.6-17.2); White Blood Count 5.7 th/mm3 (4.0-11.0)
[2018-03-31 14:34] LABS: Mean Corpuscular HGB Conc 30.1 % (32.0-36.0)
[2018-03-31 14:45] LABS: Alanine Aminotransferase 23 U/L (12-78); Albumin 3.4 g/dL (3.4-5.0); Anion Gap 9 meq/L (5-15); Aspartate Aminotransferase 17 U/L (15-37); Blood Urea Nitrogen 36 mg/dL (7-18); Calcium 8.2 mg/dL (8.5-10.1); Carbon Dioxide 28.5 meq/L (21.0-32.0); Chloride 98 meq/L (98-107); Glomerular Filtration Rate 33 mL/min (>89); Glucose,Random 383 mg/dL (74-106); Magnesium 2.2 mg/dL (1.5-2.5); Potassium 3.7 meq/L (3.5-5.1); Sodium 135 meq/L (136-145)
[2018-03-31 14:55] LABS: Alkaline Phosphatase 97 U/L (45-117); Creatine Kinase 136 U/L (39-308); Total Protein 7.4 g/dL (6.4-8.2)
[2018-03-31] MEDS ORDERED: Sod Chloride 0.9% Inj 1,000 ML IV.SIG SCH (15:00)
[2018-03-31 16:14] LABS: Bilirubin,Urine Negative (Negative); Clarity,Urine Hazy (Clear); Color,Urine Yellow (Yellw/Straw); Glucose,Urine (UA) 500 or Greater mg/dL (Negative); Hyaline Casts,Urine 9 /lpf (0-3); Leukocyte Esterase,Urine Negative (Negative); Mucus,Urine Few /lpf (Occasional); Nitrite,Urine Negative (Negative); Specific Gravity,Urine 1.013 (1.002-1.035); Squamous Epithelial Cell,Urine <1 /hpf (0-5)
[2018-03-31] MEDS ORDERED: Acetaminophen 325 MG Tablet PO PRN (16:50)
[2018-03-31] MEDS ORDERED: Bisacodyl 10 MG Supp RECTAL PRN (16:50)
[2018-03-31] MEDS ORDERED: Sod Chloride 0.9% Inj 1,000 ML IV.CONT SCH (17:00)
[2018-03-31] MEDS ORDERED: Dextrose 50% in Water 50 ML Vial IV.PUSH PRN (17:33)
--- NOTE | 2018-03-31 17:44 | P.HPIM ---
History of Present Illness Primary Care Physician: PROVIDER NON STAFF History of Present Illness: 52-year-old male with a history of diabetes mellitus type 2, hypertension presents to the emergency room with a 3-day history of having black tarry stools and fatigue with a 1 day history of increased shortness of breath both at rest and with physical activity. He denies any associated cough fevers or chills with the symptoms. He denies any associated symptoms of chest pain nor any palpitations. He denies any changes in his consistency of stools and no diarrhea or constipation. He denies associated abdominal pain with the symptoms. Despite his chronic medical problems he is currently not taking any medications. 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 Review of Systems Constitutional: Reports as per HPI, Denies chills, Reports fatigue, Denies fever (s) and Denies headache(s) Eyes: Denies blurry vision, Denies change in vision and Denies eye pain Ears, Nose, Mouth, and Throat: Denies abnormal hearing, Denies headache(s), Denies mouth pain, Denies nasal congestion, Denies neck pain and Denies sore throat Cardiovascular: Denies chest pain, Denies pedal edema, Denies palpitations and Denies dyspnea Respiratory: Denies chest congestion, Denies cough, Reports dyspnea and Reports dyspnea on exertion Gastrointestinal: Denies abdominal pain, Reports melena, Denies hematochezia, Denies constipation, Denies loose stools, Denies nausea and Denies vomiting Musculoskeletal: Denies back pain, Denies myalgias, Denies arthralgias, Denies neck pain and Denies numbness Skin/Breast: Denies new lesions and Denies rash Neurologic: Denies abnormal hearing, Denies headache(s), Denies focal weakness, Denies memory loss and Denies numbness Psychiatric: Denies anxiety, Denies depression and Denies memory loss Endocrine: Denies cold intolerance, Denies heat intolerance and Denies palpitations Hematologic/Lymphatic: Denies easy bleeding and Denies easy bruising PMF Medical History Medical History GI bleed (Acute) CHF (congestive heart failure) (Chronic) Hypertension (Chronic) Neuropathy (Chronic) Type 2 diabetes mellitus (Chronic) Surgical History Surgical History No history of previous surgery (Chronic) Social History Social History Substance History: No History of Abuse Second Hand Smoke Exposure: No Smoking Status: Never smoker How Often Do You Have a Drink Containing Alcohol: Monthly or less Recent Travel in [facility] within the Last 8 Weeks: No Recent Out of Country Travel within the Last 8 Weeks: Yes Immunization History Tetanus Immunization: <5 Years Medications and Allergies Allergies Allergy/AdvReac Type Severity Reaction Status Date / Time No Known Allergies Allergy Unknown Uncoded 02/14/17 10:54 Active Medications: Active Medications Acetaminophen (Tylenol) 650 mg PO Q4H PRN PRN Reason: Temp > 100.4 Al Hydroxide/Mg Hydroxide (Milk Of Magnesia Liq) 30 ml PO Q12H PRN PRN Reason: Mild Constipation Bisacodyl (Dulcolax Supp) 10 mg RECTAL DAILY PRN PRN Reason: SEVERE CONSITIPATION Sodium Chloride (Ns Inj) 1,000 mls @ 100 mls/hr IV.CONT .Q10H ALISON Sodium Chloride (Ns Inj) 1,000 mls @ 100 mls/hr IV.CONT .Q10H ALISON Stop: 04/01/18 02:59 Lactulose (Lactulose Liq) 30 ml PO DAILY PRN PRN Reason: SEVERE CONSITIPATION Ondansetron HCl (Zofran Inj) 4 mg IV.PUSH Q6H PRN PRN Reason: NAUSEA OR VOMITING Sennosides (Senokot) 17.2 mg PO Q12H PRN PRN Reason: Moderate Constipation Sodium Chloride (Ns Flush) 2 ml IV.FLUSH PRN PRN PRN Reason: FLUSH AFTER USING IV ACCESS Sodium Chloride (Ns Flush) 2 ml IV.FLUSH BID ALISON Sodium Chloride (Ns Flush) 2 ml IV.FLUSH PRN PRN PRN Reason: FLUSH AFTER USING IV ACCESS Physical Exam Vital signs: Last Vital Signs Temp 98.6 F 03/31/18 12:00 Pulse 65 03/31/18 14:30 Resp 15 03/31/18 14:30 BP 152/77 H 03/31/18 14:30 Pulse Ox 97 03/31/18 14:36 Intake & Output 03/29/18 03/30/18 03/31/18 04/01/18 06:59 06:59 06:59 06:59 Weight 117.934 kg Narrative: GENERAL: Obese male in no acute distress SKIN: Warm and dry. HEAD: Atraumatic. Normocephalic. EYES: Pupils equal and round. No scleral icterus. No injection or drainage. ENT: No nasal bleeding or discharge. Mucous membranes pink and moist. NECK: Trachea midline. No JVD. CARDIOVASCULAR: Regular rate and rhythm. RESPIRATORY: No accessory muscle use. Clear to auscultation. Breath sounds equal bilaterally. GASTROINTESTINAL: Abdomen soft, non-tender, nondistended. Normoactive bowel sounds Rectal deferred due to heme positive stool done in the ED MUSCULOSKELETAL: Extremities without clubbing, cyanosis, trace edema NEUROLOGICAL: Awake and alert. No obvious cranial nerve deficits. Motor grossly within normal limits. Five out of 5 muscle strength in the arms and legs. Normal speech. PSYCHIATRIC: Appropriate mood and affect; insight and judgment normal. Results Labs CBC & Chem 7: 04/01/18 08:46 04/01/18 01:41 Imaging Impressions Chest X-Ray 03/31/18 13:56 CONCLUSION: Stable chest x-ray with chronic elevation of the right hemidiaphragm with atelectasis at the right lung base. Caprini VTE Risk Assessment Caprini VTE Risk Assessment: No/Low Risk (score <= 1) Caprini Risk Assessment Model: Point Value = 1 Point Value = 2 Point Value = 3 Point Value = 5 Age 41-60 Minor surgery BMI > 25 kg/m2 Swollen legs Varicose veins or History of unexplained or recurrent spontaneous Oral contraceptives or hormone replacement Sepsis (< 1 month) Serious lung disease, including pneumonia (< 1 month) Abnormal pulmonary function Acute myocardial infarction Congestive heart failure (< 1 month) History of inflammatory bowel disease Medical patient at bed rest Age 61-74 Arthroscopic surgery Major open surgery (> 45 min) Laparoscopic surgery (> 45 min) Malignancy Confined to bed (> 72 hours) Immobilizing plaster cast Central venous access Age >= 75 History of VTE Family history of VTE Factor V Leiden Prothrombin [id number] Lupus anticoagulant Anticardiolipin antibodies Elevated serum homocysteine Heparin-induced thrombocytopenia Other congenital or acquired thrombophilia Stroke (< 1 month) Elective arthroplasty Hip, pelvis, or leg fracture Acute spinal cord injury (< 1 month) Prophylaxis Regimen: Total Risk Factor Score Risk Level Prophylaxis Regimen 0-1 Low Early ambulation 2 Moderate Order ONE of the following: *Sequential Compression Device (SCD) *Heparin 5000 units SQ BID 3-4 Higher Order ONE of the following medications: *Heparin 5000 units SQ TID *Enoxaparin/Lovenox 40 mg SQ daily (WT < 150 kg, CrCl > 30 mL/min) *Enoxaparin/Lovenox 30 mg SQ daily (WT < 150 kg, CrCl > 10-29 mL/min) *Enoxaparin/Lovenox 30 mg SQ BID (WT < 150 kg, CrCl > 30 mL/min) AND/OR *Sequential Compression Device (SCD) 5 or more Highest Order ONE of the following medications: *Heparin 5000 units SQ TID (Preferred with Epidurals) *Enoxaparin/Lovenox 40 mg SQ daily (WT < 150 kg, CrCl > 30 mL/min) *Enoxaparin/Lovenox 30 mg SQ daily (WT < 150 kg, CrCl > 10-29 mL/min) *Enoxaparin/Lovenox 30 mg SQ BID (WT < 150 kg, CrCl > 30 mL/min) AND *Sequential Compression Device (SCD) Assessment and Plan Plan 52-year-old male with a 3-day history of black tarry stool and fatigue with 1 day history of shortness of breath presents with Acute GI bleed with history of black tarry stools -serial hemoglobin hematocrit , start IV Protonix, GI consultation to evaluate for EGD due to history of angioplastic lesion in the duodenum found on endoscopy in 2017. If hemoglobin continues to drop we will need transfusion. Acute on chronic anemia due to GI bleed -serial hemoglobin hematocrit, may need transfusion and likely could benefit from Epogen due to history of chronic kidney disease. Acute kidney injury superimposed on chronic kidney disease stage III-avoid nephrotoxins, repeat levels after gentle hydration. Diabetes mellitus, type II, [id number], uncontrolled and currently not taking medications. Diabetic education, blood sugar monitoring with sliding scale insulin. Hypertension history, patient currently not take any medication. Will monitor blood pressures here and hold off on any antihypertensives due to acute GI bleed
[2018-03-31] MEDS: Sod Chloride 0.9% Inj 1,000 ML IV.CONT SCH (17:50)
[2018-03-31 20:26] LABS: Hematocrit 28.4 % (39.0-51.0); Hemoglobin 8.5 gm/dL (13.0-17.0)
[2018-03-31] MEDS: Insulin NovoLOG Aspart Correctional Sugar Inj SQ SCH (21:56)
[2018-03-31] MEDS: Pantoprazole Inj 40 MG Vial IV.PUSH SCH (21:57)
[2018-04-01 02:08] LABS: Hematocrit 25.3 % (39.0-51.0); Hemoglobin 7.8 gm/dL (13.0-17.0)
[2018-04-01 02:42] LABS: Anion Gap 3 meq/L (5-15); Blood Urea Nitrogen 28 mg/dL (7-18); Calcium 7.9 mg/dL (8.5-10.1); Carbon Dioxide 32.6 meq/L (21.0-32.0); Chloride 105 meq/L (98-107); Glomerular Filtration Rate 50 mL/min (>89); Glucose,Random 147 mg/dL (74-106); Potassium 3.2 meq/L (3.5-5.1); Sodium 141 meq/L (136-145)
[2018-04-01] MEDS: Sod Chloride 0.9% Inj 1,000 ML IV.CONT SCH (03:49)
[2018-04-01] MEDS: Pantoprazole Inj 40 MG Vial IV.PUSH SCH ×2 (09:11→20:29)
[2018-04-01] MEDS: Insulin NovoLOG Aspart Correctional Sugar Inj SQ SCH ×4 (09:12→21:03)
[2018-04-01 09:17] LABS: Hematocrit 25.5 % (39.0-51.0); Hemoglobin 7.9 gm/dL (13.0-17.0)
--- NOTE | 2018-04-01 09:59 | P.CONGI ---
History of Present Illness Consult date: 04/01/18 Consult reason: GI bleed Anemia Chief complaint: ARF, Anemia, near syncope History of Present Illness: Patient is a pleasant 52-year-old male with past medical history significant for diabetes type 2, hypertension and a GI bleed. Patient presented to [facility] emergency room with report of black tarry stools and fatigue times 3-4 days. Patient endorsed mild shortness of breath at rest and with exertion. Denies chest pain, endorses dizziness with lightheadedness. Patient denies abdominal pain nausea or vomiting. Denies constipation or diarrhea. Denies any use of NSAIDs or blood thinners. Of note, last EGD and colonoscopy performed in January 2017. Patient was admitted at that time for GI bleeding. 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 Colonoscopy revealed hemorrhoids and polyps. Patient denies any use of PPI. Hemoglobin 8.1 hematocrit 26.8 on admission. 04/01/2018 hemoglobin 7.9 hematocrit 25.5. Our service has been consulted to evaluate patient for GI bleed/anemia <Ailin Lin - Last Filed: 04/01/18 09:45> Review of Systems All other systems reviewed negative except as stated in HPI <Ailin Lin - Last Filed: 04/01/18 09:45> PMFSH - History History Provided By: Patient - Medical History Medical History: Medical History (Last Updated 03/31/18 @ 17:39 by Linsey Fallon MD) GI bleed CHF (congestive heart failure) Hypertension Neuropathy Type 2 diabetes mellitus - Surgical History Surgical History: Surgical History (Last Updated 03/31/18 @ 17:39 by Linsey Fallon MD) No history of previous surgery - Family History Family History: Family History (Last Reviewed 03/31/18 @ 14:17 by BELKIS Contreras) Mother ESRD (end stage renal disease) - Tobacco History Second Hand Smoke Exposure: No Tobacco Use In Past 30 Days: No Smoking Status: Never smoker - Alcohol History How Often Do You Have a Drink Containing Alcohol: Monthly or less - Substance Use History Substance History: No History of Abuse - Travel History Recent Travel in the [place] Within the Last 8 Weeks: No Recent Travel Out of the Country Within the Last 8 Weeks: Yes - Immunization History Tetanus Immunization: <5 Years <Ailin Lin - Last Filed: 04/01/18 09:45> - Medical History Medical History: Medical History (Last Updated 03/31/18 @ 17:39 by Linsey Fallon MD) GI bleed CHF (congestive heart failure) Hypertension Neuropathy Type 2 diabetes mellitus - Surgical History Surgical History: Surgical History (Last Updated 03/31/18 @ 17:39 by Linsey Fallon MD) No history of previous surgery - Family History Family History: Family History (Last Reviewed 03/31/18 @ 14:17 by BELKIS Contreras) Mother ESRD (end stage renal disease) <Lazarus Daniels - Last Filed: 04/01/18 13:54> Medications and Allergies Active Medications: Active Medications Acetaminophen (Tylenol) 650 mg PO Q4H PRN PRN Reason: Temp > 100.4 Al Hydroxide/Mg Hydroxide (Milk Of Magnesia Liq) 30 ml PO Q12H PRN PRN Reason: Mild Constipation Bisacodyl (Dulcolax Supp) 10 mg RECTAL DAILY PRN PRN Reason: SEVERE CONSITIPATION Dextrose (D50w Vial) 50 ml IV.PUSH UNSCH PRN PRN Reason: PER HYPOGLYCEMIA PROTOCOL Glucagon (Glucagon Inj) 1 mg OTHER PRN PRN PRN Reason: for Hypoglycemia Protocol Sodium Chloride (Ns Inj) 1,000 mls @ 100 mls/hr IV.CONT .Q10H [facility] Last Admin: 04/01/18 03:49 Dose: 100 mls/hr Insulin Aspart (Novolog Insulin Correctional Sugar Inj) 0 unit SQ ACHS [facility]; Protocol Last Admin: 04/01/18 09:12 Dose: 5 unit Lactulose (Lactulose Liq) 30 ml PO DAILY PRN PRN Reason: SEVERE CONSITIPATION Ondansetron HCl (Zofran Inj) 4 mg IV.PUSH Q6H PRN PRN Reason: NAUSEA OR VOMITING Pantoprazole Sodium (Protonix Inj) 40 mg IV.PUSH BID [facility] Last Admin: 04/01/18 09:11 Dose: 40 mg Sennosides (Senokot) 17.2 mg PO Q12H PRN PRN Reason: Moderate Constipation Sodium Chloride (Ns Flush) 2 ml IV.FLUSH BID [facility] Last Admin: 04/01/18 09:11 Dose: 2 ml Sodium Chloride (Ns Flush) 2 ml IV.FLUSH PRN PRN PRN Reason: FLUSH AFTER USING IV ACCESS <Ailin Lin - Last Filed: 04/01/18 09:45> Active Medications: Active Medications Acetaminophen (Tylenol) 650 mg PO Q4H PRN PRN Reason: Temp > 100.4 Al Hydroxide/Mg Hydroxide (Milk Of Magnesia Liq) 30 ml PO Q12H PRN PRN Reason: Mild Constipation Bisacodyl (Dulcolax Supp) 10 mg RECTAL DAILY PRN PRN Reason: SEVERE CONSITIPATION Dextrose (D50w Vial) 50 ml IV.PUSH UNSCH PRN PRN Reason: PER HYPOGLYCEMIA PROTOCOL Glucagon (Glucagon Inj) 1 mg OTHER PRN PRN PRN Reason: for Hypoglycemia Protocol Sodium Chloride (Ns Inj) 250 mls @ 15 mls/hr IV.SIG ONCE [facility] Stop: 04/02/18 03:39 Last Admin: 04/01/18 12:01 Dose: 15 mls/hr Insulin Aspart (Novolog Insulin Correctional Sugar Inj) 0 unit SQ ACHS [facility]; Protocol Last Admin: 04/01/18 13:43 Dose: 5 unit Insulin Detemir (Levemir Inj) 20 unit SQ HS [facility] Lactulose (Lactulose Liq) 30 ml PO DAILY PRN PRN Reason: SEVERE CONSITIPATION Ondansetron HCl (Zofran Inj) 4 mg IV.PUSH Q6H PRN PRN Reason: NAUSEA OR VOMITING Pantoprazole Sodium (Protonix Inj) 40 mg IV.PUSH BID [facility] Last Admin: 04/01/18 09:11 Dose: 40 mg Sennosides (Senokot) 17.2 mg PO Q12H PRN PRN Reason: Moderate Constipation Sodium Chloride (Ns Flush) 2 ml IV.FLUSH BID [facility] Last Admin: 04/01/18 09:11 Dose: 2 ml Sodium Chloride (Ns Flush) 2 ml IV.FLUSH PRN PRN PRN Reason: FLUSH AFTER USING IV ACCESS <Lazarus Daniels - Last Filed: 04/01/18 13:54> Allergies Allergy/AdvReac Type Severity Reaction Status Date / Time No Known Allergies Allergy Unknown Uncoded 02/14/17 10:54 Exam Vital signs: Vital Signs 03/31/18 12:00 03/31/18 14:30 03/31/18 14:36 Temperature 98.6 F Pulse Rate 70 65 Respiratory Rate 18 15 Blood Pressure 130/73 152/77 H Pulse Oximetry 98 97 97 03/31/18 19:28 03/31/18 20:00 04/01/18 00:00 Temperature 97.9 F 98.2 F Pulse Rate 74 65 77 Respiratory Rate 18 18 Blood Pressure 136/62 152/72 H 157/81 H Pulse Oximetry 97 97 04/01/18 04:00 04/01/18 08:00 Temperature 98.5 F 98.8 F Pulse Rate 71 68 Respiratory Rate 18 18 Blood Pressure 152/81 H 131/74 Pulse Oximetry 96 95 Intake & Output 03/31/18 04/01/18 04/01/18 18:59 06:59 18:59 Intake Total 1000 / 1000 1700 / 1700 Output Total 800 / 800 600 / 600 Balance 200 / 200 1100 / 1100 Weight 117.934 kg 117.934 kg Intake: IV 1000 / 1000 1700 / 1700 NS Inj 1,000 ML @ 100 mls/hr IV 1700 / 1700 .CONT .Q10H [facility] Rx#:[id number] NS Inj 1,000 ML @ 1000 mls/hr 1000 / 1000 IV.SIG BOLUS [facility] Rx#:[id number] Output: Urine 800 / 800 600 / 600 Other: Weight On Admission 117.943 kg - Constitutional no acute distress, average body habitus, cooperative - Routine HEENT Exam Head: Present: normocephalic - Routine Respiratory Exam Present: CTA bilaterally. Absent: accessory muscle use - Routine Cardiovascular Exam Present: RRR, S1, S2 - Routine Abdominal Exam Present: soft, normoactive bowel sounds. Absent: tenderness, distended, guarding, firm - Routine Extremities Exam Present: pulses intact. Absent: cyanosis, clubbing, edema - Routine Skin Exam Present: dry, warm - Routine Neurological Exam Present: alert, oriented X3 <Lin,Ailin - Last Filed: 04/01/18 09:45> Vital signs: Vital Signs 03/31/18 14:30 03/31/18 14:36 03/31/18 19:28 Temperature Pulse Rate 65 74 Respiratory Rate 15 Blood Pressure 152/77 H 136/62 Pulse Oximetry 97 97 03/31/18 20:00 04/01/18 00:00 04/01/18 04:00 Temperature 97.9 F 98.2 F 98.5 F Pulse Rate 65 77 71 Respiratory Rate 18 18 18 Blood Pressure 152/72 H 157/81 H 152/81 H Pulse Oximetry 97 97 96 04/01/18 08:00 04/01/18 12:05 04/01/18 12:25 Temperature 98.8 F 97.9 F 98.4 F Pulse Rate 68 69 70 Respiratory Rate 18 17 16 Blood Pressure 131/74 124/69 149/74 H Pulse Oximetry 95 98 99 04/01/18 12:31 Temperature 98.4 F Pulse Rate 70 Respiratory Rate 16 Blood Pressure 143/75 H Pulse Oximetry 99 Intake & Output 03/31/18 04/01/18 04/01/18 18:59 06:59 18:59 Intake Total 1000 / 1000 1700 / 1700 600 / 600 Output Total 800 / 800 600 / 600 Balance 200 / 200 1100 / 1100 600 / 600 Weight 117.934 kg 117.934 kg Intake: IV 1000 / 1000 1700 / 1700 600 / 600 NS Inj 1,000 ML @ 100 mls/hr IV 1700 / 1700 600 / 600 .CONT .Q10H [facility] Rx#:[id number] NS Inj 1,000 ML @ 1000 mls/hr 1000 / 1000 IV.SIG BOLUS [facility] Rx#:[id number] Intake (Blood Product) Amt 0 / 0 Rbc As-3 Leukoreduced Unit 0 / 0 [id number] Output: Urine 800 / 800 600 / 600 Other: Date of Last Bowel Movement 04/01/18 Weight On Admission 117.943 kg <Lazarus Daniels - Last Filed: 04/01/18 13:54> Results - Labs CBC & Chem 7: 04/01/18 08:46 04/01/18 01:41 Labs: Laboratory Results - last 24 hr 03/31/18 03/31/18 03/31/18 14:17 14:17 14:17 WBC 5.7 RBC 3.67 L Hgb 8.1 L Hct 26.8 L MCV 73.1 L MCH 22.0 L MCHC 30.1 L RDW 16.4 Plt Count 242 MPV 7.8 Neut % (Auto) 73.1 H Lymph % (Auto) 14.5 [place] % (Auto) 10.5 H Eos % (Auto) 0.9 Baso % (Auto) 1.0 Neut # (Auto) 4.1 Lymph # (Auto) 0.8 L [place] # (Auto) 0.6 Eos # (Auto) 0.0 Baso # (Auto) 0.1 WBC Differential . Differential Comment Auto diff final Sodium 135 L Potassium 3.7 Chloride 98 Carbon Dioxide 28.5 Anion Gap 9 BUN 36 H Creatinine 2.48 H Estimated GFR 33 L POC Glucose Random Glucose 383 H Calcium 8.2 L Magnesium 2.2 Total Bilirubin 0.7 AST 17 ALT 23 Alkaline Phosphatase 97 Total Creatine Kinase 136 Troponin I Less than 0.02 L B-Natriuretic Peptide 65 Total Protein 7.4 Albumin 3.4 TSH 2.210 Urine Color Urine Clarity Urine pH Ur Specific [place] Urine Protein Urine Glucose (UA) Urine Ketones Urine Occult Blood Urine Nitrate Urine Bilirubin Urine Urobilinogen Ur Leukocyte Esterase Urine RBC Urine WBC Ur Squamous Epith Cells Hyaline Casts Urine Mucus Micro UA Comment Ur Microscopic Review Urine Culture Comments Blood Type Antibody Screen 03/31/18 03/31/18 03/31/18 14:17 16:00 20:10 WBC RBC Hgb 8.5 L Hct 28.4 L MCV MCH MCHC RDW Plt Count MPV Neut % (Auto) Lymph % (Auto) [place] % (Auto) Eos % (Auto) Baso % (Auto) Neut # (Auto) Lymph # (Auto) [place] # (Auto) Eos # (Auto) Baso # (Auto) WBC Differential Differential Comment Sodium Potassium Chloride Carbon Dioxide Anion Gap BUN Creatinine Estimated GFR POC Glucose Random Glucose Calcium Magnesium Total Bilirubin AST ALT Alkaline Phosphatase Total Creatine Kinase Troponin I B-Natriuretic Peptide Total Protein Albumin TSH Urine Color Yellow Urine Clarity Hazy H Urine pH 5.0 Ur Specific [place] 1.013 Urine Protein 100 H Urine Glucose (UA) 500 or greater Urine Ketones Negative Urine Occult Blood Negative Urine Nitrate Negative Urine Bilirubin Negative Urine Urobilinogen Less than 2 Ur Leukocyte Esterase Negative Urine RBC Less than 1 Urine WBC Less than 1 Ur Squamous Epith Cells <1 Hyaline Casts 9 Urine Mucus Few H Micro UA Comment Culture not ind Ur Microscopic Review Not Reportable Urine Culture Comments Culture not ind Blood Type O Positive Antibody Screen Negative 03/31/18 04/01/18 04/01/18 20:50 01:41 01:41 WBC RBC Hgb 7.8 L Hct 25.3 L MCV MCH MCHC RDW Plt Count MPV Neut % (Auto) Lymph % (Auto) [place] % (Auto) Eos % (Auto) Baso % (Auto) Neut # (Auto) Lymph # (Auto) [place] # (Auto) Eos # (Auto) Baso # (Auto) WBC Differential Differential Comment Sodium 141 Potassium 3.2 L Chloride 105 Carbon Dioxide 32.6 H Anion Gap 3 L BUN 28 H Creatinine 1.75 H Estimated GFR 50 L POC Glucose 328 H Random Glucose 147 H D Calcium 7.9 L Magnesium Total Bilirubin AST ALT Alkaline Phosphatase Total Creatine Kinase Troponin I Less than 0.02 L B-Natriuretic Peptide Total Protein Albumin TSH Urine Color Urine Clarity Urine pH Ur Specific [place] Urine Protein Urine Glucose (UA) Urine Ketones Urine Occult Blood Urine Nitrate Urine Bilirubin Urine Urobilinogen Ur Leukocyte Esterase Urine RBC Urine WBC Ur Squamous Epith Cells Hyaline Casts Urine Mucus Micro UA Comment Ur Microscopic Review Urine Culture Comments Blood Type Antibody Screen 04/01/18 04/01/18 08:46 09:04 WBC RBC Hgb 7.9 L Hct 25.5 L MCV MCH MCHC RDW Plt Count MPV Neut % (Auto) Lymph % (Auto) [place] % (Auto) Eos % (Auto) Baso % (Auto) Neut # (Auto) Lymph # (Auto) [place] # (Auto) Eos # (Auto) Baso # (Auto) WBC Differential Differential Comment Sodium Potassium Chloride Carbon Dioxide Anion Gap BUN Creatinine Estimated GFR POC Glucose 260 H Random Glucose Calcium Magnesium Total Bilirubin AST ALT Alkaline Phosphatase Total Creatine Kinase Troponin I B-Natriuretic Peptide Total Protein Albumin TSH Urine Color Urine Clarity Urine pH Ur Specific [place] Urine Protein Urine Glucose (UA) Urine Ketones Urine Occult Blood Urine Nitrate Urine Bilirubin Urine Urobilinogen Ur Leukocyte Esterase Urine RBC Urine WBC Ur Squamous Epith Cells Hyaline Casts Urine Mucus Micro UA Comment Ur Microscopic Review Urine Culture Comments Blood Type Antibody Screen - Imaging Impressions Chest X-Ray 03/31/18 13:56 CONCLUSION: Stable chest x-ray with chronic elevation of the right hemidiaphragm with atelectasis at the right lung base. <Ailin Lin - Last Filed: 04/01/18 09:45> - Labs CBC & Chem 7: 04/01/18 08:46 04/01/18 01:41 Labs: Laboratory Results - last 24 hr 03/31/18 03/31/18 03/31/18 14:17 14:17 14:17 WBC 5.7 RBC 3.67 L Hgb 8.1 L Hct 26.8 L MCV 73.1 L MCH 22.0 L MCHC 30.1 L RDW 16.4 Plt Count 242 MPV 7.8 Neut % (Auto) 73.1 H Lymph % (Auto) 14.5 [place] % (Auto) 10.5 H Eos % (Auto) 0.9 Baso % (Auto) 1.0 Neut # (Auto) 4.1 Lymph # (Auto) 0.8 L [place] # (Auto) 0.6 Eos # (Auto) 0.0 Baso # (Auto) 0.1 WBC Differential . Differential Comment Auto diff final Sodium 135 L Potassium 3.7 Chloride 98 Carbon Dioxide 28.5 Anion Gap 9 BUN 36 H Creatinine 2.48 H Estimated GFR 33 L POC Glucose Random Glucose 383 H Calcium 8.2 L Magnesium 2.2 Total Bilirubin 0.7 AST 17 ALT 23 Alkaline Phosphatase 97 Total Creatine Kinase 136 Troponin I Less than 0.02 L B-Natriuretic Peptide 65 Total Protein 7.4 Albumin 3.4 TSH 2.210 Urine Color Urine Clarity Urine pH Ur Specific [place] Urine Protein Urine Glucose (UA) Urine Ketones Urine Occult Blood Urine Nitrate Urine Bilirubin Urine Urobilinogen Ur Leukocyte Esterase Urine RBC Urine WBC Ur Squamous Epith Cells Hyaline Casts Urine Mucus Micro UA Comment Ur Microscopic Review Urine Culture Comments Blood Type Antibody Screen MTS Gel Crossmatch 03/31/18 03/31/18 03/31/18 14:17 16:00 20:10 WBC RBC Hgb 8.5 L Hct 28.4 L MCV MCH MCHC RDW Plt Count MPV Neut % (Auto) Lymph % (Auto) [place] % (Auto) Eos % (Auto) Baso % (Auto) Neut # (Auto) Lymph # (Auto) [place] # (Auto) Eos # (Auto) Baso # (Auto) WBC Differential Differential Comment Sodium Potassium Chloride Carbon Dioxide Anion Gap BUN Creatinine Estimated GFR POC Glucose Random Glucose Calcium Magnesium Total Bilirubin AST ALT Alkaline Phosphatase Total Creatine Kinase Troponin I B-Natriuretic Peptide Total Protein Albumin TSH Urine Color Yellow Urine Clarity Hazy H Urine pH 5.0 Ur Specific [place] 1.013 Urine Protein 100 H Urine Glucose (UA) 500 or greater Urine Ketones Negative Urine Occult Blood Negative Urine Nitrate Negative Urine Bilirubin Negative Urine Urobilinogen Less than 2 Ur Leukocyte Esterase Negative Urine RBC Less than 1 Urine WBC Less than 1 Ur Squamous Epith Cells <1 Hyaline Casts 9 Urine Mucus Few H Micro UA Comment Culture not ind Ur Microscopic Review Not Reportable Urine Culture Comments Culture not ind Blood Type O Positive Antibody Screen Negative MTS Gel Crossmatch 03/31/18 04/01/18 04/01/18 20:50 01:41 01:41 WBC RBC Hgb 7.8 L Hct 25.3 L MCV MCH MCHC RDW Plt Count MPV Neut % (Auto) Lymph % (Auto) [place] % (Auto) Eos % (Auto) Baso % (Auto) Neut # (Auto) Lymph # (Auto) [place] # (Auto) Eos # (Auto) Baso # (Auto) WBC Differential Differential Comment Sodium 141 Potassium 3.2 L Chloride 105 Carbon Dioxide 32.6 H Anion Gap 3 L BUN 28 H Creatinine 1.75 H Estimated GFR 50 L POC Glucose 328 H Random Glucose 147 H D Calcium 7.9 L Magnesium Total Bilirubin AST ALT Alkaline Phosphatase Total Creatine Kinase Troponin I Less than 0.02 L B-Natriuretic Peptide Total Protein Albumin TSH Urine Color Urine Clarity Urine pH Ur Specific [place] Urine Protein Urine Glucose (UA) Urine Ketones Urine Occult Blood Urine Nitrate Urine Bilirubin Urine Urobilinogen Ur Leukocyte Esterase Urine RBC Urine WBC Ur Squamous Epith Cells Hyaline Casts Urine Mucus Micro UA Comment Ur Microscopic Review Urine Culture Comments Blood Type Antibody Screen MTS Gel Crossmatch 04/01/18 04/01/18 04/01/18 08:46 09:04 10:09 WBC RBC Hgb 7.9 L Hct 25.5 L MCV MCH MCHC RDW Plt Count MPV Neut % (Auto) Lymph % (Auto) [place] % (Auto) Eos % (Auto) Baso % (Auto) Neut # (Auto) Lymph # (Auto) [place] # (Auto) Eos # (Auto) Baso # (Auto) WBC Differential Differential Comment Sodium Potassium Chloride Carbon Dioxide Anion Gap BUN Creatinine Estimated GFR POC Glucose 260 H Random Glucose Calcium Magnesium Total Bilirubin AST ALT Alkaline Phosphatase Total Creatine Kinase Troponin I B-Natriuretic Peptide Total Protein Albumin TSH Urine Color Urine Clarity Urine pH Ur Specific [place] Urine Protein Urine Glucose (UA) Urine Ketones Urine Occult Blood Urine Nitrate Urine Bilirubin Urine Urobilinogen Ur Leukocyte Esterase Urine RBC Urine WBC Ur Squamous Epith Cells Hyaline Casts Urine Mucus Micro UA Comment Ur Microscopic Review Urine Culture Comments Blood Type Antibody Screen MTS Gel Crossmatch See Detail 04/01/18 13:14 WBC RBC Hgb Hct MCV MCH MCHC RDW Plt Count MPV Neut % (Auto) Lymph % (Auto) [place] % (Auto) Eos % (Auto) Baso % (Auto) Neut # (Auto) Lymph # (Auto) [place] # (Auto) Eos # (Auto) Baso # (Auto) WBC Differential Differential Comment Sodium Potassium Chloride Carbon Dioxide Anion Gap BUN Creatinine Estimated GFR POC Glucose 299 H Random Glucose Calcium Magnesium Total Bilirubin AST ALT Alkaline Phosphatase Total Creatine Kinase Troponin I B-Natriuretic Peptide Total Protein Albumin TSH Urine Color Urine Clarity Urine pH Ur Specific [place] Urine Protein Urine Glucose (UA) Urine Ketones Urine Occult Blood Urine Nitrate Urine Bilirubin Urine Urobilinogen Ur Leukocyte Esterase Urine RBC Urine WBC Ur Squamous Epith Cells Hyaline Casts Urine Mucus Micro UA Comment Ur Microscopic Review Urine Culture Comments Blood Type Antibody Screen MTS Gel Crossmatch - Imaging Impressions Chest X-Ray 03/31/18 13:56 CONCLUSION: Stable chest x-ray with chronic elevation of the right hemidiaphragm with atelectasis at the right lung base. <Lazarus Daniels - Last Filed: 04/01/18 13:54> Assessment and Plan (1) Melena Status: Acute Code(s): K92.1 - Melena (2) Anemia Status: Acute Code(s): D64.9 - Anemia, unspecified - Plan Patient is a pleasant 52-year-old male with past medical history significant for diabetes type 2, hypertension and a GI bleed. Patient presented to [facility] emergency room with report of black tarry stools and fatigue times 3-4 days. Patient endorsed mild shortness of breath at rest and with exertion. Denies chest pain, endorses dizziness with lightheadedness. Patient denies abdominal pain nausea or vomiting. Denies constipation or diarrhea. Denies any use of NSAIDs or blood thinners. Of note, last EGD and colonoscopy performed in January 2017. Patient was admitted at that time for GI bleeding. 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 Colonoscopy revealed hemorrhoids and polyps. Patient denies any use of PPI. Hemoglobin 8.1 hematocrit 26.8 on admission. 04/01/2018 hemoglobin 7.9 hematocrit 25.5. Our service has been consulted to evaluate patient for GI bleed/anemia Melena GI bleed Anemia Patient endorses 3-4 days onset of black tarry stools with generalized fatigue and lightheadedness. 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 Retroflexed views revealed no abnormalities. Recommendations included antireflux regimen, PPI, avoidance of NSAIDs and repeat EGD in 1 year. -02/15/2017 Colonoscopy revealed the following-small sessile polyp found in the rectum; biopsy performed using cold forceps, retroflex views revealed internal medium-sized hemorrhoids. Recommended return for Colonoscopy in 5 years with yearly Hemoccult -Hemoglobin 7.9 hematocrit 25.5 Plan -N.p.o. -Obtain consent for EGD -EGD today -Monitor for bleeding -Monitor hemoglobin and hematocrit -Pantoprazole 40 mg IV twice daily -Avoidance of anticoagulants and NSAIDs -Supportive care -Further recommendations to follow This patient has been seen by myself and Dr. Daniels and this note is written on his behalf - Attending Attestation Dr. Daniels <Ailin Lin - Last Filed: 04/01/18 09:45> (1) Melena Status: Acute Code(s): K92.1 - Melena (2) Anemia Status: Acute Code(s): D64.9 - Anemia, unspecified - Attending Attestation Seen and examined, patient ate small meal, EGD postponded till tomorrow. Further recommendations to follow. Thank you for the consult. <Lazarus Daniels - Last Filed: 04/01/18 13:54>
--- NOTE | 2018-04-01 10:17 | P.PNIM ---
Subjective Interval history: Reports no shortness of breath or any dizziness. No further bowel movements overnight to determine if he is still having black stools. No abdominal pain. Physical Exam Vital signs: Last Vital Signs Temp 98.8 F 04/01/18 08:00 Pulse 68 04/01/18 08:00 Resp 18 04/01/18 08:00 BP 131/74 04/01/18 08:00 Pulse Ox 95 04/01/18 08:00 Intake & Output 03/30/18 03/31/18 04/01/18 04/02/18 06:59 06:59 06:59 06:59 Intake Total 2700 / 2700 Output Total 1400 / 1400 Balance 1300 / 1300 Weight 117.934 kg Narrative: GENERAL: Obese male in no acute distress CARDIOVASCULAR: Regular rate and rhythm. RESPIRATORY: No accessory muscle use. Clear to auscultation. Breath sounds equal bilaterally. GASTROINTESTINAL: Abdomen soft, non-tender, nondistended. Normoactive bowel sounds MUSCULOSKELETAL: Extremities without clubbing, cyanosis, trace edema NEUROLOGICAL: Awake and alert to person place time and situation. Results Labs CBC & Chem 7: 04/01/18 08:46 04/01/18 01:41 Imaging Imaging: Impressions Chest X-Ray 03/31/18 13:56 CONCLUSION: Stable chest x-ray with chronic elevation of the right hemidiaphragm with atelectasis at the right lung base. Assessment and Plan (1) Melena: Code(s): K92.1 - Melena Status: Acute (2) Anemia: Code(s): D64.9 - Anemia, unspecified Status: Acute Plan 52-year-old male with a 3-day history of black tarry stool and fatigue with 1 day history of shortness of breath presents with Acute GI bleed with history of black tarry stools -serial hemoglobin hematocrit showed dropped to 7.8, start IV Protonix, GI consultation to evaluate for EGD due to history of angioplastic lesion in the duodenum found on endoscopy in 2017. Transfuse 2 units of packed red blood cell. Acute on chronic anemia due to GI bleed -transfuse 2 units of packed red blood cell today. Monitor hemoglobin. Acute kidney injury superimposed on chronic kidney disease stage III-avoid nephrotoxins, improved overnight with gentle hydration. Will monitor creatinine. Diabetes mellitus, type II, [id number], uncontrolled and currently not taking medications. Diabetic education, blood sugar monitoring with sliding scale insulin. Start Levemir tonight. Currently n.p.o. for GI evaluation. When p.o. is resumed we will need to start oral medications as patient likely will not be compliant with insulin. Hypertension history, patient currently not take any medication. Blood pressure currently acceptable, will continue to monitor blood pressures and hold off on any antihypertensives due to acute GI bleed Hypokalemiareplete DVT prophylaxisno anticoagulation secondary to GI bleed. Admit to inpatient due to drop in hemoglobin. 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
[2018-04-01] MEDS ORDERED: Sodium Chlor 0.9% Inj 250 ML IV.SIG SCH (11:00)
[2018-04-01] MEDS: amLODIPine 5 MG Tablet PO SCH (15:37)
[2018-04-01] MEDS ORDERED: Gabapentin 100 MG Capsule PO ONE (17:09)
[2018-04-01] MEDS ORDERED: Acetaminophen 325 MG Tablet PO PRN (17:11)
[2018-04-01] MEDS: Gabapentin 100 MG Capsule PO SCH (17:53)
--- NOTE | 2018-04-01 18:14 | ECG ---
Date Performed: 04/01/2018 Time Performed: 01:40:31 PTAGE: 52 years EKG: Sinus rhythm SEPTAL MYOCARDIAL INFARCTION Since the previous tracing, no significant change noted ABNORMAL ECG NO PREVIOUS TRACING DOCTOR: Christopher Witt Interpretating Date/Time 04/01/2018 18:13:27
--- NOTE | 2018-04-01 18:14 | ECG ---
Date Performed: 03/31/2018 Time Performed: 14:12:54 PTAGE: 52 years EKG: Sinus rhythm MODERATE VOLTAGE CRITERIA FOR LVH, CONSIDER NORMAL VARIANT POSSIBLE SEPTAL MYOCARDIAL INFARCTION Sin ce the PREVIOUS TRACING , no significant change noted PREVIOUS TRACIN02/14/2017 21.15 DOCTOR: Christopher Witt Interpretating Date/Time 04/01/2018 18:13:16
[2018-04-01] MEDS ORDERED: Gabapentin 100 MG Capsule PO SCH (21:00)
[2018-04-01] MEDS: Insulin Detemir Inj 1,000 UNIT/10 ML Vial SQ SCH (21:03)
[2018-04-02] MEDS ORDERED: Gabapentin 100 MG Capsule PO ONE (03:31)
[2018-04-02 05:24] LABS: Baso % (Auto) 0.5 % (0.0-2.0); Eos % (Auto) 0.9 % (0.0-4.0); Hematocrit 32.3 % (39.0-51.0); Lymph % (Auto) 19.9 % (9.0-44.0); Mean Corpuscular HGB Conc 31.1 % (32.0-36.0); Mean Corpuscular Hemoglobin 22.7 pg (27.0-34.0); Mean Corpuscular Volume 73.2 fL (80.0-100.0); Mean Platelet Volume 8.3 fL (7.0-11.0); Mono # (Auto) 0.6 th/mm3 (0.0-0.9); Mono % (Auto) 10.9 % (0.0-8.0); Neut # (Auto) 3.5 th/mm3 (1.8-7.7); Neut % (Auto) 67.8 % (16.0-70.0); Platelet Count 264 th/mm3 (150-450); Red Blood Count 4.41 mil/mm3 (4.50-5.90); White Blood Count 5.2 th/mm3 (4.0-11.0)
[2018-04-02 06:25] LABS: Calcium 8.1 mg/dL (8.5-10.1); Carbon Dioxide 29.2 meq/L (21.0-32.0)
[2018-04-02] MEDS: Insulin NovoLOG Aspart Correctional Sugar Inj SQ SCH ×4 (08:07→20:55)
[2018-04-02] MEDS: Gabapentin 100 MG Capsule PO SCH ×3 (08:08→18:24)
[2018-04-02] MEDS: amLODIPine 5 MG Tablet PO SCH (08:08)
[2018-04-02] MEDS: Pantoprazole Inj 40 MG Vial IV.PUSH SCH ×2 (08:08→20:56)
--- NOTE | 2018-04-02 09:47 | P.PNIM ---
Subjective Interval history: Patient reports that he has not had any bowel movement since coming into the hospital. No abdominal pain. No shortness of breath or dizziness. Physical Exam Vital signs: Last Vital Signs Temp 98.6 F 04/02/18 07:26 Pulse 67 04/02/18 07:26 Resp 18 04/02/18 07:26 BP 144/83 H 04/02/18 07:26 Pulse Ox 97 04/02/18 07:26 Intake & Output 03/31/18 04/01/18 04/02/18 04/03/18 06:59 06:59 06:59 06:59 Intake Total 2700 / 2700 1800 / 1800 Output Total 1400 / 1400 1950 / 1950 Balance 1300 / 1300 -150 / -150 Weight 117.934 kg Narrative: GENERAL: Obese male in no acute distress CARDIOVASCULAR: Regular rate and rhythm. RESPIRATORY: No accessory muscle use. Clear to auscultation. Breath sounds equal bilaterally. GASTROINTESTINAL: Abdomen soft, non-tender, nondistended. Normoactive bowel sounds MUSCULOSKELETAL: Extremities without clubbing, cyanosis, trace edema NEUROLOGICAL: Awake and alert. No obvious cranial nerve deficits. Motor grossly within normal limits. Five out of 5 muscle strength in the arms and legs. Normal speech. 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 Acute on chronic anemia due to GI bleed -hemoglobin 10 and stable after 2 units of packed red blood cells transfusion, will continue to monitor hemoglobin. Acute kidney injury superimposed on chronic kidney disease stage III-avoid nephrotoxins, stable levels after gentle hydration. Diabetes mellitus, type II, wvb-qpfkiqz-eelivyani, uncontrolled and currently not taking medications. Diabetic education, blood sugar monitoring with sliding scale insulin. Better control on Levemir started, unfortunately patient likely will not be compliant with insulin and will start some oral medications when patient is able to start a diet again after EGD. Hypertension history, lower dose Norvasc started, will increase to 10 mg a day. Hypokalemiareplete and check magnesium level Possible discharge in the morning pending results of EGD and review of electrolytes and hemoglobin. 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
[2018-04-02] MEDS ORDERED: amLODIPine 10 MG Tablet PO SCH (09:52)
[2018-04-02] MEDS ORDERED: amLODIPine 5 MG Tablet PO ONE (09:52)
--- NOTE | 2018-04-02 13:31 | GIPROC ---
[facility] [address] [facility]. [facility], [address] EGD PROCEDURE REPORT EXAM DATE: 04/02/2018 PATIENT NAME: Cortes Barillas MR #: [id number] BIRTHDATE: 1965 ATTENDING: Mitra Parr MD ORDER #: [id number] INFORMATION SECURITY DIRECTOR: Sabi Iqbal and Alexandrea Parra STATUS: inpatient INDICATIONS: The patient is a 52 yr old male here for an EGD due to gi bleeding anemia PROCEDURE PERFORMED: EGD w/ biopsy EGD w/ ablation MEDICATIONS: Per Anesthesia and None. TOPICAL ANESTHETIC: none CONSENT: The patient understands the risks and benefits of the procedure and understands that these risks include, but are not limited to: sedation, allergic reaction, infection, perforation and/or bleeding. Alternative means of evaluation and treatment include, among others: physical exam, x-rays, and/or surgical intervention. The patient elects to proceed with this endoscopic procedure. medical equipment was checked for proper function. Hand hygiene and appropriate measures for infection prevention was taken. After the risks, benefits and alternatives of the procedure were thoroughly explained, Informed consent was verified, confirmed and timeout was successfully executed by the treatment team. The patient was anesthetized with topical anesthesia and the Pentax EG-[id number] endoscope was introduced through the mouth and advanced to the second portion of the duodenum. Retroflexed views revealed a hiatal hernia The gastroscope was then slowly withdrawn and removed. Gastritis antrum-biopsy 3 avm's in fundus of stomach ablated with apc probe 5 avm's in duodenum ablated using apc probe. ADVERSE EVENTS: There were no complications. IMPRESSIONS: 1. Gastritis antrum-biopsy 3 avm's in fundus of stomach ablated with apc probe 5 avm's in duodenum ablated using apc probe 2. Retroflexed views revealed a hiatal hernia RECOMMENDATIONS: 1. Await biopsy results. Biopsy results will not be ready for 7-10 days. If you don't hear from us in two weeks, call our office for biopsy results. 2. Anti-reflux regimen 3. Continue PPI 4. Start PPI 5. Caspule endoscopy op iron supplementation cbc 1 week ok to [place] home from [facility] if hb stable fu gi 2 weeks PATIENT CONDITION: stable DISPOSITION: Inpatient REPEAT EXAM: Return 3 months EGD Mitra Parr MD eSigned: Mitra Parr MD 04/02/2018 1:30 PM cc: PATIENT NAME: Cortes Barillas MR#: [id number]
[2018-04-02] MEDS: Insulin Detemir Inj 1,000 UNIT/10 ML Vial SQ SCH (20:55)
[2018-04-03 06:29] LABS: Baso % (Auto) 0.7 % (0.0-2.0); Eos # (Auto) 0.1 th/mm3 (0.0-0.4); Eos % (Auto) 1.3 % (0.0-4.0); Hematocrit 32.4 % (39.0-51.0); Hemoglobin 9.7 gm/dL (13.0-17.0); Lymph # (Auto) 0.9 th/mm3 (1.0-4.8); Lymph % (Auto) 14.1 % (9.0-44.0); Mean Corpuscular HGB Conc 29.8 % (32.0-36.0); Mean Corpuscular Hemoglobin 22.2 pg (27.0-34.0); Mean Corpuscular Volume 74.3 fL (80.0-100.0); Mean Platelet Volume 8.2 fL (7.0-11.0); Mono # (Auto) 0.6 th/mm3 (0.0-0.9); Mono % (Auto) 9.2 % (0.0-8.0); Neut # (Auto) 4.9 th/mm3 (1.8-7.7); Neut % (Auto) 74.7 % (16.0-70.0); Platelet Count 269 th/mm3 (150-450); Red Blood Count 4.36 mil/mm3 (4.50-5.90); White Blood Count 6.6 th/mm3 (4.0-11.0)
[2018-04-03 06:55] LABS: Calcium 8.2 mg/dL (8.5-10.1); Carbon Dioxide 27.2 meq/L (21.0-32.0); Potassium 3.3 meq/L (3.5-5.1)
[2018-04-03] MEDS: Insulin NovoLOG Aspart Correctional Sugar Inj SQ SCH ×2 (09:39→14:06)
[2018-04-03] MEDS: Gabapentin 100 MG Capsule PO SCH ×2 (09:39→14:05)
[2018-04-03] MEDS: Pantoprazole Inj 40 MG Vial IV.PUSH SCH (09:40)
--- NOTE | 2018-04-03 11:31 | P.PNIM ---
Subjective Interval history: In not acute distress he is watching TV with family at bedside. Feels comfortable to go home. Says he knows how to self inject insulin however will have nurse to teach the patient how to self inject insulin. He denies any pain. No nausea vomiting no diarrhea constipation. Denies fever or chills. Physical Exam Vital signs: Last Vital Signs Temp 98.5 F 04/03/18 08:00 Pulse 72 04/03/18 08:00 Resp 12 04/03/18 08:00 BP 150/84 H 04/03/18 08:00 Pulse Ox 99 04/03/18 08:00 Intake & Output 04/01/18 04/02/18 04/03/18 04/04/18 06:59 06:59 06:59 06:59 Intake Total 2700 / 2700 1800 / 1800 460 / 460 Output Total 1400 / 1400 1950 / 1950 Balance 1300 / 1300 -150 / -150 460 / 460 Weight 117.934 kg Narrative: GENERAL: Obese male in no acute distress CARDIOVASCULAR: Regular rate and rhythm. RESPIRATORY: No accessory muscle use. Clear to auscultation. Breath sounds equal bilaterally. GASTROINTESTINAL: Abdomen soft, non-tender, nondistended. Normoactive bowel sounds MUSCULOSKELETAL: Extremities without clubbing, cyanosis, trace edema NEUROLOGICAL: Awake and alert. No obvious cranial nerve deficits. Motor grossly within normal limits. Five out of 5 muscle strength in the arms and legs. Normal speech. 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 Acute on chronic anemia due to GI bleed -hemoglobin 10 and stable after 2 units of packed red blood cells transfusion, will continue to monitor hemoglobin. Acute kidney injury superimposed on chronic kidney disease stage III-avoid nephrotoxins, stable levels after gentle hydration. Diabetes mellitus, type II, edj-iwyiuwj-xbdyoeucy, uncontrolled and currently not taking medications. Diabetic education, blood sugar monitoring with sliding scale insulin. Better control on Levemir started, unfortunately patient likely will not be compliant with insulin and will start some oral medications when patient is able to start a diet again after EGD. Hypertension history, lower dose Norvasc started, will increase to 10 mg a day. Hypokalemiareplete and check magnesium level Hemoglobin has been stable. Discussed with the GI doctor clear patient for discharge. Discharged home in stable condition to follow-up with PCP and consultants as outpatient. 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
[2018-04-03 13:30] VITALS: BP 142/83; PULSE 71; RESP 16; TEMP 99.2; O2SAT 98
--- NOTE | 2018-04-03 15:17 | P.DS ---
DS: Providers Date of admission: 04/01/18 14:37 Primary care physician: PROVIDER NON STAFF Consults: 03/31/18 17:45 Consult to Gastroenterology Routine Consulting Provider: Lazarus Daniels Reason for Consultation: GI bleed, anemia Notified:: Service Spoke with:: LYLE Date Notified:: 03/31/18 Time Notified:: 18:58 Ordering Provider: SUSAN 04/01/18 09:01 HUB Only Consult Order Routine Consulting Provider: Arturo Morris Brief History from admission: 52-year-old male with a history of diabetes mellitus type 2, hypertension presents to the emergency room with a 3-day history of having black tarry stools and fatigue with a 1 day history of increased shortness of breath both at rest and with physical activity. He denies any associated cough fevers or chills with the symptoms. He denies any associated symptoms of chest pain nor any palpitations. He denies any changes in his consistency of stools and no diarrhea or constipation. He denies associated abdominal pain with the symptoms. Despite his chronic medical problems he is currently not taking any medications. 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 NO more Bleeding, hgb stable Patient endorses 3-4 days onset of black tarry stools with generalized fatigue and lightheadedness. - 04/02/18 EGD 1. Gastritis antrum-biopsy 3 avm's in fundus of stomach ablated with apc probe 5 avm's in duodenum ablated using apc probe 2. Retroflexed views revealed a hiatal hernia Acute on chronic anemia due to GI bleed -hemoglobin 10 and stable after 2 units of packed red blood cells transfusion, will continue to monitor hemoglobin. Acute kidney injury superimposed on chronic kidney disease stage III-avoid nephrotoxins, stable levels after gentle hydration. Diabetes mellitus, type II, hxo-mipnixy-hzigpyqlh, uncontrolled and currently not taking medications. Diabetic education, blood sugar monitoring with sliding scale insulin. Better control on Levemir started, unfortunately patient likely will not be compliant with insulin and will start some oral medications when patient is able to start a diet again after EGD. Hypertension history, lower dose Norvasc started, will increase to 10 mg a day. Hypokalemiareplete and check magnesium level Hemoglobin has been stable. Discussed with the GI doctor clear patient for discharge. Discharged home in stable condition to follow-up with PCP and consultants as outpatient. Time Spent with Patient Total time spent providing and/or coordinating discharge services: >30 min Quality: VTE Deep Vein Thrombosis/Pulmonary Embolism Present on Admission: No Exam Narrative Exam Narrative: GENERAL: Obese male in no acute distress CARDIOVASCULAR: Regular rate and rhythm. RESPIRATORY: No accessory muscle use. Clear to auscultation. Breath sounds equal bilaterally. GASTROINTESTINAL: Abdomen soft, non-tender, nondistended. Normoactive bowel sounds MUSCULOSKELETAL: Extremities without clubbing, cyanosis, trace edema NEUROLOGICAL: Awake and alert. No obvious cranial nerve deficits. Motor grossly within normal limits. Five out of 5 muscle strength in the arms and legs. Normal speech. Results Pending studies at discharge: Pending at discharge 04/02/18 Surgical [PTH] Routine Labs on day of discharge: Labs from last 24 hours 04/03/18 04/03/18 04/03/18 12:06 04:50 04:50 WBC 6.6 RBC 4.36 L Hgb 9.7 L Hct 32.4 L MCV 74.3 L MCH 22.2 L MCHC 29.8 L RDW 17.0 Plt Count 269 MPV 8.2 Neut % (Auto) 74.7 H Lymph % (Auto) 14.1 [place] % (Auto) 9.2 H Eos % (Auto) 1.3 Baso % (Auto) 0.7 Neut # (Auto) 4.9 Lymph # (Auto) 0.9 L [place] # (Auto) 0.6 Eos # (Auto) 0.1 Baso # (Auto) 0.0 WBC Differential . Differential Comment Auto diff final Sodium 138 Potassium 3.3 L Chloride 105 Carbon Dioxide 27.2 Anion Gap 6 BUN 17 Creatinine 1.75 H Estimated GFR 50 L POC Glucose 184 H Random Glucose 201 H Calcium 8.2 L 04/02/18 04/02/18 20:48 18:03 WBC RBC Hgb Hct MCV MCH MCHC RDW Plt Count MPV Neut % (Auto) Lymph % (Auto) [place] % (Auto) Eos % (Auto) Baso % (Auto) Neut # (Auto) Lymph # (Auto) [place] # (Auto) Eos # (Auto) Baso # (Auto) WBC Differential Differential Comment Sodium Potassium Chloride Carbon Dioxide Anion Gap BUN Creatinine Estimated GFR POC Glucose 193 H 206 H Random Glucose Calcium Impressions ITS Impressions Chest X-Ray 03/31/18 13:56 CONCLUSION: Stable chest x-ray with chronic elevation of the right hemidiaphragm with atelectasis at the right lung base. Discharge Plan Discharge Disposition Patient Disposition: Discharge Home Discharge Condition Condition: Good Discharge Order Discharge Orders: Discharge Order (Routine); Ordered 04/03/18 Ordered By: Honey Borges Physicians Team ED Provider: Guera Toure ED Midlevel Provider: Jovana Nye Primary Care Provider: JEEVAN SNYDER,PROVIDER Attending Provider: Honey Borges Other Providers: Lazarus Daniels ; Arturo Morris Rxs /Orders / Referrals /Forms Prescriptions: New pantoprazole 40 mg tablet,delayed release (DR/EC) 40 mg PO DAILY Qty: 60 RF: 0 insulin detemir U-100 [Levemir U-100 Insulin] 100 unit/mL Solution 20 unit subcut HS 30 Days Qty: 6 RF: 0 blood-glucose meter misc .ROUTE .MEDSUPPLY Qty: 1 RF: 0 Continue carvedilol 25 mg Tablet 25 mg PO BID RF: 0 gabapentin 400 mg Capsule 400 mg PO BID RF: 0 amlodipine 10 mg Tablet 10 mg PO DAILY RF: 0 hydrochlorothiazide 25 mg Tablet 25 mg PO DAILY RF: 0 olmesartan 40 mg Tablet 40 mg PO DAILY RF: 0 Referrals: Lazarus Daniels MD [Physician] - See Instructions ( Please call the physician's office to book the appointment to be seen within [2 weeks].) NON STAFF,PROVIDER [Primary Care Provider] - See Instructions ( Please call the physician's office to book the appointment to be seen within [2-3 days with PCP]. If no insurance follow up at [facility] ) Discharge Instructions Patient Printed Instructions: Arteriovenous Malformation (DC), Arteriovenous Malformation (GEN), How to Give an Insulin Injection (DC), Anemia (DC), Type 2 Diabetes in the Older Adult (DC) Additional Instructions: CONTACT PHYSICIAN OR RETURN TO EMERGENCY ROOM FOR ANY RECURRING PROBLEMS OR CONCERNS WITH ANEMIA OR DIABETES.Your Health Problems: Goals to Promote Your Health: * To prevent worsening of your condition * To maintain your health at the optimal level Directions to Meet Your Goals: * Take your medications as prescribed * Follow your dietary instruction * Follow activity as directed * Keep your appointments as scheduled * Take your immunizations and boosters as scheduled * If your symptoms worsen call your PCP * If no PCP go to Urgent Care or Emergency Room Smoking is dangerous to your health. Avoid second hand smoke. You may reach the 24-hour crisis hotline for domestic abuse at . Status ED Status: Left Department Discharge Information Discharge Date/Time: 04/03/18 17:30
--- NOTE | 2018-04-03 16:03 | P.PNGI ---
Subjective Interval history: Pt is resting in bed, accompanied by visitors. Denies any bleeding. <Bahman Chandler - Last Filed: 04/03/18 16:03> Physical Exam Vital signs: Vital Signs 04/02/18 16:30 04/02/18 20:00 04/02/18 20:20 Temperature 98.2 F 97.6 F Pulse Rate 61 67 67 Respiratory Rate 23 18 Blood Pressure 146/75 H 151/84 H Pulse Oximetry 99 99 04/03/18 00:00 04/03/18 04:15 04/03/18 04:24 Temperature 98.1 F 97.9 F Pulse Rate 64 69 76 Respiratory Rate 16 16 Blood Pressure 147/78 H 145/65 H Pulse Oximetry 96 99 04/03/18 08:00 04/03/18 12:00 Temperature 98.5 F 99.2 F Pulse Rate 72 71 Respiratory Rate 12 16 Blood Pressure 150/84 H 142/83 H Pulse Oximetry 99 98 Intake & Output 04/02/18 04/03/18 04/03/18 18:59 06:59 18:59 Intake Total 100 / 100 360 / 360 Balance 100 / 100 360 / 360 Intake: Oral 360 / 360 Anesthesia Amount 100 / 100 Other: # Voids 1 3 Date of Last Bowel Movement 04/01/18 04/01/18 # Bowel Movements 0 Narrative: GENERAL: Obese male in no acute distress CARDIOVASCULAR: Regular rate and rhythm. RESPIRATORY: No accessory muscle use. Clear to auscultation. Breath sounds equal bilaterally. GASTROINTESTINAL: Abdomen soft, non-tender, nondistended. Normoactive bowel sounds MUSCULOSKELETAL: Extremities without clubbing, cyanosis, trace edema NEUROLOGICAL: Awake and alert. No obvious cranial nerve deficits. Normal speech. <Bahman Chandler - Last Filed: 04/03/18 16:03> Vital signs: Vital Signs 04/02/18 20:00 04/02/18 20:20 04/03/18 00:00 Temperature 97.6 F 98.1 F Pulse Rate 67 67 64 Respiratory Rate 18 16 Blood Pressure 151/84 H 147/78 H Pulse Oximetry 99 96 04/03/18 04:15 04/03/18 04:24 04/03/18 08:00 Temperature 97.9 F 98.5 F Pulse Rate 69 76 72 Respiratory Rate 16 12 Blood Pressure 145/65 H 150/84 H Pulse Oximetry 99 99 04/03/18 12:00 Temperature 99.2 F Pulse Rate 71 Respiratory Rate 16 Blood Pressure 142/83 H Pulse Oximetry 98 Intake & Output 04/03/18 04/03/18 04/04/18 06:59 18:59 06:59 Intake Total 360 / 360 Balance 360 / 360 Intake: Oral 360 / 360 Other: # Voids 3 Date of Last Bowel Movement 04/01/18 04/01/18 # Bowel Movements 0 <Mitra Parr - Last Filed: 04/03/18 19:08> Results - Labs CBC & Chem 7: 04/03/18 04:50 04/03/18 04:50 Laboratory Results - last 24 hr 04/02/18 04/02/18 04/03/18 18:03 20:48 04:50 WBC 6.6 RBC 4.36 L Hgb 9.7 L Hct 32.4 L MCV 74.3 L MCH 22.2 L MCHC 29.8 L RDW 17.0 Plt Count 269 MPV 8.2 Neut % (Auto) 74.7 H Lymph % (Auto) 14.1 [place] % (Auto) 9.2 H Eos % (Auto) 1.3 Baso % (Auto) 0.7 Neut # (Auto) 4.9 Lymph # (Auto) 0.9 L [place] # (Auto) 0.6 Eos # (Auto) 0.1 Baso # (Auto) 0.0 WBC Differential . Differential Comment Auto diff final Sodium Potassium Chloride Carbon Dioxide Anion Gap BUN Creatinine Estimated GFR POC Glucose 206 H 193 H Random Glucose Calcium 04/03/18 04/03/18 04:50 12:06 WBC RBC Hgb Hct MCV MCH MCHC RDW Plt Count MPV Neut % (Auto) Lymph % (Auto) [place] % (Auto) Eos % (Auto) Baso % (Auto) Neut # (Auto) Lymph # (Auto) [place] # (Auto) Eos # (Auto) Baso # (Auto) WBC Differential Differential Comment Sodium 138 Potassium 3.3 L Chloride 105 Carbon Dioxide 27.2 Anion Gap 6 BUN 17 Creatinine 1.75 H Estimated GFR 50 L POC Glucose 184 H Random Glucose 201 H Calcium 8.2 L <Bahman Chandler - Last Filed: 04/03/18 16:03> - Labs CBC & Chem 7: 04/03/18 04:50 01/06/19 04:50 Laboratory Results - last 24 hr 04/02/18 04/03/18 04/03/18 20:48 04:50 04:50 WBC 6.6 RBC 4.36 L Hgb 9.7 L Hct 32.4 L MCV 74.3 L MCH 22.2 L MCHC 29.8 L RDW 17.0 Plt Count 269 MPV 8.2 Neut % (Auto) 74.7 H Lymph % (Auto) 14.1 [place] % (Auto) 9.2 H Eos % (Auto) 1.3 Baso % (Auto) 0.7 Neut # (Auto) 4.9 Lymph # (Auto) 0.9 L [place] # (Auto) 0.6 Eos # (Auto) 0.1 Baso # (Auto) 0.0 WBC Differential . Differential Comment Auto diff final Sodium 138 Potassium 3.3 L Chloride 105 Carbon Dioxide 27.2 Anion Gap 6 BUN 17 Creatinine 1.75 H Estimated GFR 50 L POC Glucose 193 H Random Glucose 201 H Calcium 8.2 L 04/03/18 12:06 WBC RBC Hgb Hct MCV MCH MCHC RDW Plt Count MPV Neut % (Auto) Lymph % (Auto) [place] % (Auto) Eos % (Auto) Baso % (Auto) Neut # (Auto) Lymph # (Auto) [place] # (Auto) Eos # (Auto) Baso # (Auto) WBC Differential Differential Comment Sodium Potassium Chloride Carbon Dioxide Anion Gap BUN Creatinine Estimated GFR POC Glucose 184 H Random Glucose Calcium <VinimaeMitra - Last Filed: 04/03/18 19:08> Assessment and Plan (1) Melena Status: Acute Code(s): K92.1 - Melena (2) Anemia Status: Acute Code(s): D64.9 - Anemia, unspecified - Plan Patient is a pleasant 52-year-old male with past medical history significant for diabetes type 2, hypertension and a GI bleed. Patient presented to [facility] emergency room with report of black tarry stools and fatigue times 3-4 days. Patient endorsed mild shortness of breath at rest and with exertion. Denies chest pain, endorses dizziness with lightheadedness. Patient denies abdominal pain nausea or vomiting. Denies constipation or diarrhea. Denies any use of NSAIDs or blood thinners. Of note, last EGD and colonoscopy performed in January 2017. Patient was admitted at that time for GI bleeding. 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 Colonoscopy revealed hemorrhoids and polyps. Patient denies any use of PPI. Hemoglobin 8.1 hematocrit 26.8 on admission. 04/01/2018 hemoglobin 7.9 hematocrit 25.5. Our service has been consulted to evaluate patient for GI bleed/anemia Melena GI bleed Anemia NO more Bleeding, hgb stable 9.7 Patient endorses 3-4 days onset of black tarry stools with generalized fatigue and lightheadedness. - 04/02/18 EGD 1. Gastritis antrum-biopsy 3 avm's in fundus of stomach ablated with apc probe 5 avm's in duodenum ablated using apc probe 2. 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 Retroflexed views revealed no abnormalities. Recommendations included antireflux regimen, PPI, avoidance of NSAIDs and repeat EGD in 1 year. -02/15/2017 Colonoscopy revealed the following-small sessile polyp found in the rectum; biopsy performed using cold forceps, retroflex views revealed internal medium-sized hemorrhoids. Recommended return for Colonoscopy in 5 years with yearly Hemoccult -Hemoglobin 7.9 hematocrit 25.5 Plan - Await biopsy results. - Continue PPI - Caspule endoscopy op - EGD in 3 months - iron supplement - cbc 1 week - ok to [place] home from [facility] - Avoidance of anticoagulants and NSAIDs This patient has been seen by myself and Dr. Parr and this note is written on her behalf <Bahman Chandler - Last Filed: 04/03/18 16:03> (1) Melena Status: Acute Code(s): K92.1 - Melena (2) Anemia Status: Acute Code(s): D64.9 - Anemia, unspecified - Attending Attestation agree with above <Mitra Parr - Last Filed: 04/03/18 19:08>
== END 2018-04-03 17:30 | disposition home or self-care (01) | DRG 378 ==
LOC: NEDA 11:49 → NEPD 11:49 → NEPGCP 20:32 → N06 04-02 16:22
PROVIDERS: ADMIT Hospitalist; ATTEND Hospitalist
PROC: PANENDO (2018-04-02 13:00)
DX: E66.9 Obesity, unspecified; K29.70 Gastritis, unspecified, without bleeding; N17.9 Acute kidney failure, unspecified; D52.9 Folate deficiency anemia, unspecified; Z86.010 Personal history of colon polyps; K31.819 Angiodysplasia of stomach and duodenum without bleeding; K92.1 Melena; J98.11 Atelectasis; D50.8 Other iron deficiency anemias; N18.3 Chronic kidney disease, stage 3 (moderate); E11.22 Type 2 diabetes mellitus with diabetic chronic kidney disease; D51.9 Vitamin B12 deficiency anemia, unspecified; E86.0 Dehydration; K64.8 Other hemorrhoids; D63.1 Anemia in chronic kidney disease; I50.9 Heart failure, unspecified; I13.0 Hypertensive heart and chronic kidney disease with heart failure and stage 1 through stage 4 chronic kidney disease, or unspecified chronic kidney disease; K44.9 Diaphragmatic hernia without obstruction or gangrene; D62 Acute posthemorrhagic anemia; E11.40 Type 2 diabetes mellitus with diabetic neuropathy, unspecified; E11.649 Type 2 diabetes mellitus with hypoglycemia without coma; E87.6 Hypokalemia; Z68.37 Body mass index [BMI] 37.0-37.9, adult; R55 Syncope and collapse
CPT/HCPCS: 36430; 71010; 71045; 80048; 80053; 81001; 82550; 82948; 82962; 83520; 83735; 83880; 84443; 84484; 85014; 85018; 85025; 86850; 86900; 86901; 86923; 88305; 88312; 93005; 96360; 96361; 97161; 99285; C9113; G0378; G8987; G8988; J1815; J1940; J7030; J7050; P9016